=== PATIENT | male | born 1980 | race Caucasian/White ===

== ENCOUNTER 2019-12-15 22:24 | Emergency (ER) | payer OTHER, SELFPAY ==
--- NOTE | ~2019-12-15 | XR_ITS ---
EXAMINATION: XR chest 1V portable EXAM DATE: 12/15/2019 22:54 INDICATION: Dyspnea on exertion. TECHNIQUE: Portable AP frontal chest x-ray was obtained. Comparison is made to prior examination from 06/16/2017. FINDINGS: The lungs are clear. There are no pleural effusions. The cardiomediastinal silhouette is within normal limits. There is no pneumothorax suspected. There is moderate upper thoracic levoscol iosis. IMPRESSION: No acute cardiopulmonary findings. Reviewed, dictated and finalized at location G.
[2019-12-15 22:27] VITALS: BP 134/97; PULSE 96; RESP 20; TEMP 37.3; O2SAT 97
--- NOTE | 2019-12-15 22:28 | ED.GENADULT ---
HPI - General Adult General Chief complaint: Shortness of Breath/Dyspnea Stated complaint: breathing weird Time Seen by Provider: 12/15/19 22:26 Source: patient Mode of arrival: ambulatory Limitations: no limitations History of Present Illness HPI narrative: Patient is a 39-year-old male with a history of HIV, undetected viral load, who presents for evaluation of shortness of breath over the past two days. Patient reports feeling as if he cannot get a deep breath. He denies any chest pain or pleuritic pain. He reports dry cough. He denies fever, congestion, sore throat. No nausea or vomiting. No diarrhea. No leg swelling, leg pain, no rashes or redness. No history of blood clot. No recent travels or known exposures to coronavirus. Patient states he has been isolating at home aside from trips to the grocery store. Patient lives with his grandmother who is otherwise healthy. Patient does have a history of asthma, states this feels different than asthma exacerbations. Related Data Allergies Allergy/AdvReac Type Severity Reaction Status Date / Time banana Allergy Mild MOUTH SORES Verified 12/15/19 22:37 tomato Allergy Mild MOUTH SORES Verified 12/15/19 22:37 cat dander Allergy Unknown Itching Verified 12/15/19 22:37 ENVIRONMENTAL ALLERGENS AdvReac Unknown Itching Uncoded 12/15/19 22:37 Review of Systems Review of Systems: Narrative: CONSTITUTIONAL: Denies fever, chills, or sweats. EYES: Denies visual changes, redness, or discharge. ENT: Denies rhinorrhea, congestion, sore throat, or otalgia. CARDIOVASCULAR: Denies chest pain, palpitations, or edema. RESPIRATORY: Reports dry cough and dyspnea GASTROINTESTINAL: Denies abdominal pain, nausea, vomiting, or diarrhea. GENITOURINARY: Denies dysuria or hematuria. SKIN: Denies rash or itching. MUSCULOSKELETAL: Denies back pain, joint pain, or myalgia. NEUROLOGIC: Denies headache, numbness, or weakness. [facility] Past Medical History Medical History Anxiety Asthma Depression HIV (human immunodeficiency virus infection) Hyperlipidemia Leg fracture Surgical History Surgical History History of appendectomy History of tonsillectomy Social History Social History Smoking status: Never smoker Alcohol intake: current Exam Narrative: Exam Narrative: GENERAL: Awake, alert, conversant HEAD: Normocephalic, atraumatic. EYES: PERRLA and EOMI. ENT: Nares clear, no rhinorrhea or epistaxis. Mucous membranes moist. NECK: Supple. CHEST: No respiratory distress, breathing even and non labored, no use of accessory muscles, no difficulty speaking in full sentences HEART: Borderline tachycardic rate, sinus rhythm ABDOMEN:Non distended, non tender EXTREMITIES: Normal range of motion. No edema. No erythema. No calf tenderness. SKIN: Warm, dry, no rash. NEURO:No focal deficits. Alert and oriented x3 Course Course Emergency Course: Patient presented for evaluation of shortness of breath. At the time of initial assessment, ABCs are intact and vital signs are stable. No hypoxemia, no increased work of breathing. No audible wheezing to have this be consistent with an asthma exacerbation. Patient is PERC criteria negative, making PE unlikely diagnosis. Furthermore, patient without chest pain or pleuritic type pain, no PE risk factors. Laboratory results are reassuring. No lymphopenia, no elevation in inflammatory markers or elevation in troponin. Chest x-ray shows no pneumonia, there is nothing consistent with severe coronavirus infection at this point. Given immunocompromise status, will go ahead and send COVID-19 viral swab, and I did advise the patient that this would result tomorrow and he will be called if the results were positive. As patient is hemodynamically stable, no respiratory distress at the time of assessment, we can fabio
[2019-12-15 22:50] LABS: Basophils Absolute Auto 0.1 K/mm3 (0.0-0.1); Basophils Percent Auto 0.9 % (0.2-1.2); Eosinophils Absolute Auto 0.6 K/mm3 (0-0.3); Eosinophils Percent Auto 7.1 % (0-4.4); Hematocrit 41.8 % (42.0-52.0); Hemoglobin 14.4 g/dL (14.0-18.0); Immature Granulocyte Absolute 0.02 K/mm3 (0.00-0.031); Immature Granulocyte Percent A 0.3 % (0-0.5); Lymphocytes Absolute Auto 2.71 K/mm3 (0.9-3.2); Lymphocytes Percent Auto 34.5 % (18.3-44.2); Mean Corpuscular HGB Conc 34.4 g/dl (32-36); Mean Corpuscular Hemoglobin 32.8 pg (26-34); Mean Corpuscular Volume 95.2 fl (80-100); Mean Platelet Volume 12.9 fl (7.4-10.4); Monocytes Absolute Auto 0.9 K/mm3 (0.1-0.6); Monocytes Percent Auto 11.5 % (2.6-8.5); Neutrophils Absolute Auto 3.6 K/mm3 (1.3-6.7); Neutrophils Percent Auto 45.7 % (45.5-73.1); Platelet Count Result 150 k/mm3 (150-375); Red Blood Count 4.39 M/mm3 (4.6-6.20); Red Cell Distribution Width 12.9 % (11.5-14.5); White Blood Count 7.9 K/mm3 (4.5-10.0)
[2019-12-15 22:58] VITALS: PULSE 91
[2019-12-15 22:59] VITALS: BP 139/97; PULSE 86; RESP 13; O2SAT 97
[2019-12-15 22:59] LABS: INR 0.9; Prothrombin Time 12.1 Seconds (11.1-14.7)
--- NOTE | 2019-12-15 22:59 | PC.NURSE ---
Assumed care of pt at this time. report from EULALIO Fagan
[2019-12-15 23:00] LABS: Partial Thromboplastin Time 27.4 SECONDS (22.3-36.8)
--- NOTE | 2019-12-15 23:02 | ECG_ITS ---
Measurements Intervals [place] Rate: 104 P: 59 [place]: 172 QRS: 5 QRSD: 94 T: 33 QT: 319 QTc: 420 Interpretive Statements SINUS TACHYCARDIA EARLY PRECORDIAL R/S TRANSITION BASELINE WANDER- V4 ABNORMAL ECG Electronically Signed On 12-16-2019 7:09:54 CDT by Collin Mcgraw D.O.
[2019-12-15 23:07] LABS: Alanine Aminotransferase 57 U/L (4-50); Albumin Level 4.3 g/dL (3.5-5.1); Alkaline Phosphatase 98 U/L (38-126); Aspartate Amino Transferase 35 U/L (17-59); Bilirubin,Total 0.3 mg/dL (0.2-1.3); Blood Urea Nitrogen 11 mg/dL (9-20); Calcium 8.8 mg/dL (8.4-10.2); Carbon Dioxide 22 mmol/L (22-30); Chloride 108 mmol/L (98-107); Estimated CRCL calculation 115 ml/min; Estimated Glomerular Filt Rate > 60; Glucose 123 mg/dL (75-110); Lactate Dehydrogenase 427 U/L (313-618); Potassium 3.7 mmol/L (3.4-5.0); Sodium 139 mmol/L (137-145)
[2019-12-15 23:09] LABS: CRP < 0.5 mg/dL (<1.0)
[2019-12-15 23:15] LABS: NT Pro B Type Natriuretic Pept 22 PG/ML (5-100)
[2019-12-15 23:18] LABS: Troponin I < 0.012 ng/mL (0.000-0.034)
[2019-12-16 00:20] VITALS: BP 134/108; PULSE 91; RESP 12; O2SAT 99
[2019-12-16 13:28] LABS: SARS-CoV-2 RNA PCR Negative
== END 2019-12-16 00:20 | disposition home or self-care (01) ==
PROVIDERS: Emergency Provider Emergency Medicine; PCP Physician Assistant Medical
DX: R06.00 Dyspnea, unspecified (principal); J45.909 Unspecified asthma, uncomplicated; E78.5 Hyperlipidemia, unspecified; Z21 Asymptomatic human immunodeficiency virus [HIV] infection status; R00.0 Tachycardia, unspecified; Z20.828 Contact with and (suspected) exposure to other viral communicable diseases
CPT/HCPCS: 36415; 71045; 80053; 82728; 83615; 83880; 84484; 85025; 85610; 85730; 86140; 87635; 93005; 99284; C9803; U0003

== ENCOUNTER 2020-01-27 16:50 | Emergency (ER) | payer OTHER, SELFPAY ==
--- NOTE | ~2020-01-27 | CT_ITS ---
EXAMINATION: CT abdomen pelvis w con DATE: 01/27/2020 18:17 INDICATION: Abdominal pain TECHNIQUE: Computed tomography (CT) of the abdomen and pelvis was performed with 100 mL Omnipaque-350 intravenous contrast. Automated exposure control and iterative reconstruction technique were employe d. The dose-length product was 1502.37 mGy-cm. COMPARISON: 08/01/2019 FINDINGS: Lung bases are clear. Heart size is normal. No pericardial or pleural effusion. Diffuse hepatic steat osis. Gallbladder, spleen, pancreas, bilateral adrenal glands and kidneys are normal. Surgical clips at the tip of cecum likely related to prior appendectomy. Bowels are normal with no wall thickening o r obstruction. Tiny fat-containing umbilical hernia and 3 separate fat-containing paraumbilical herni as. There is prominent inflammatory stranding in the fat within the most cephalad hernia consistent w ith fat necrosis. There is also a small fat-containing indirect right inguinal hernia. Bladder is nor mal. No free intraperitoneal gas or fluid. No pathologically enlarged abdominal or pelvic lymphadenop athy. 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 Minimal lumbar dextr ocurvature. IMPRESSION: 1. Fat necrosis within the cephalad-most of 3 fat-containing paraumbilical hernias. 2. Diffuse hepatic steatosis. Reviewed, dictated and finalized at location A. IMPRESSION: 1. Fat necrosis within the cephalad-most of 3 fat-containing paraumbilical yogesh ias. 2. Diffuse hepatic steatosis.
[2020-01-27 16:56] VITALS: BP 142/113; PULSE 116; RESP 20; TEMP 36.7; O2SAT 98
[2020-01-27 17:32] LABS: Basophils Absolute Auto 0.1 K/mm3 (0.0-0.1); Eosinophils Absolute Auto 0.6 K/mm3 (0-0.3); Eosinophils Percent Auto 7.7 % (0-4.4); Hematocrit 42.6 % (42.0-52.0); Hemoglobin 14.6 g/dL (14.0-18.0); Immature Granulocyte Absolute 0.03 K/mm3 (0.00-0.031); Immature Granulocyte Percent A 0.4 % (0-0.5); Immature Platelet Fraction Pct 11.3 % (0.9-11.2); Lymphocytes Absolute Auto 2.61 K/mm3 (0.9-3.2); Lymphocytes Percent Auto 33.9 % (18.3-44.2); Mean Corpuscular HGB Conc 34.3 g/dl (32-36); Mean Corpuscular Hemoglobin 32.5 pg (26-34); Mean Corpuscular Volume 94.9 fl (80-100); Monocytes Absolute Auto 0.8 K/mm3 (0.1-0.6); Neutrophils Absolute Auto 3.6 K/mm3 (1.3-6.7); Platelet Count Result 154 k/mm3 (150-375); Red Blood Count 4.49 M/mm3 (4.6-6.20); Red Cell Distribution Width 12.8 % (11.5-14.5); White Blood Count 7.7 K/mm3 (4.5-10.0)
[2020-01-27] MEDS: KETOROLAC 30 MG/ML VIAL (*BKC) IV PUSH (17:40)
[2020-01-27 17:44] LABS: Alanine Aminotransferase 88 U/L (4-50); Albumin Level 4.4 g/dL (3.5-5.1); Alkaline Phosphatase 88 U/L (38-126); Aspartate Amino Transferase 57 U/L (17-59); Bilirubin,Total 0.4 mg/dL (0.2-1.3); Blood Urea Nitrogen 13 mg/dL (9-20); Calcium 9.4 mg/dL (8.4-10.2); Carbon Dioxide 21 mmol/L (22-30); Chloride 108 mmol/L (98-107); Estimated CRCL calculation 96 ml/min; Estimated Glomerular Filt Rate > 60; Glucose 96 mg/dL (75-110); Potassium 4.3 mmol/L (3.4-5.0); Sodium 138 mmol/L (137-145)
--- NOTE | 2020-01-27 17:45 | PC.NURSE ---
Pt attempted to urinate. Pt unable to urinate at this time.
--- NOTE | 2020-01-27 17:47 | ED.GENADULT ---
HPI - General Adult General Chief complaint: Abdominal Pain Stated complaint: Abd Pain Time Seen by Provider: 01/27/20 16:56 History of Present Illness HPI narrative: Patient is a 39 y/o male complaining of right sided abdominal pain starting approximately 1 hour ago when he was at a gym doing crunches. He states that the pain is intermittent, like sharp and pulling sensation. He states that his pain is worse with movement and he rates his pain as 8/10. He denies any fever, chills, vomiting or diarrhea. Of note, he had appendectomy several years ago. Related Data Home Medications Medication Instructions Recorded Confirmed gbxqetzmi-nxqwioom-npjrrox ala 1 tablet PO DAILY 01/27/20 [Biktarvy] Allergies Allergy/AdvReac Type Severity Reaction Status Date / Time banana Allergy Mild MOUTH SORES Verified 01/27/20 17:02 tomato Allergy Mild MOUTH SORES Verified 01/27/20 17:02 cat dander Allergy Unknown Itching Verified 01/27/20 17:02 ENVIRONMENTAL ALLERGENS AdvReac Unknown Itching Uncoded 01/27/20 17:03 Review of Systems Constitutional: Constitutional: Denies chills, Denies fever(s), Denies headache(s) and Denies weakness Eyes: Eyes: Denies blurry vision ENT: Denies headache(s) and Denies neck pain Cardiovascular: Cardiovascular: Denies chest pain and Denies dyspnea Respiratory: Respiratory: Denies cough and Denies dyspnea Gastrointestinal: Gastrointestinal: Reports abdominal pain, Denies diarrhea, Denies nausea and Denies vomiting Genitourinary: Genitourinary: Denies hematuria and Denies dysuria Musculoskeletal: Musculoskeletal: Denies back pain and Denies neck pain Neurologic: Denies headache(s) and Denies weakness [facility] Past Medical History Medical History Anxiety Asthma Depression HIV (human immunodeficiency virus infection) Hyperlipidemia Leg fracture Surgical History Surgical History History of appendectomy History of tonsillectomy Social History Social History Smoking status: Never smoker Alcohol intake: current Gender identity (if verbalized by the patient): Male Exam Const: General: no acute distress and well developed Orientation/consciousness: oriented to person, oriented to place, oriented to time and patient oriented x3 HENMT: Head: normocephalic Ears: external ears normal General nose exam: Normal external nose present Eyes: General: appearance normal, both eyes and all related structures Conjunctivae: conjunctivae normal Neck: Neck: normal visual inspection and full ROM Chest: Chest palpation & inspection: normal inspection of the chest and no tenderness Resp: Effort & Inspection: normal respiratory effort Auscultation: clear to auscultation bilaterally Cardio: Rate: tachycardic Rhythm: regular rhythm GI: GI Palp: No abdominal tenderness and Yes Soft to palpation Skin: General skin exam: normal color and turgor normal Neuro: General: oriented to person, oriented to place, oriented to time and patient oriented x3 Cognition (Neuro): normal cognition Extrem: General: normal to inspection, full ROM and no pedal edema Psych: Appearance: grossly normal Mental Status: mental status grossly normal Affect: normal affect Course Reevaluation(s) Reevaluation #1: Patient states that he still has pain does not want to go home. Will consult surgery again. Date: 01/27/20 Time: 19:40 Reevaluation #2: Relayed Dr. Schwab's recommendation and instructed patient to call in the morning and return to ED if his conditions worsens. Date: 01/27/20 Time: 20:10 Consultations Consultation #1: Discussed with Dr. Schwab, who recommends discharge with analgesics and he will follow up tomorrow. Date: 01/27/20 Time: 19:05 Consultation #2: Discussed with Dr. Schwab, who still recommends discharge and states that patient's condition does not requi
[2020-01-27 18:41] VITALS: BP 114/99; PULSE 89; RESP 19; O2SAT 99
[2020-01-27 18:51] LABS: Add Urine Microscopic? YES; Appearance Urine Clear (Clear); Bilirubin Urine Negative (Negative); Blood Urine Negative (Negative); Color Urine Yellow (Yellow); Glucose Urine UA Negative (Negative); Ketones Urine Negative (Negative); Leukocyte Esterase Ur Negative LEU/UL (Negative); Mucus Urine Rare /lpf; Nitrate Urine Negative (Negative); Protein Urine 1+ mg/dL (Negative); RBC Urine 0-2 /hpf (0-2); Specific Grav Ur 1.023 (1.001-1.035); Urobilinogen Urine Negative mg/dL (<2.0); WBC Urine 0-3 /hpf
[2020-01-27] MEDS: MORPHINE SULFATE 4 MG/ML INJ IV PUSH (19:10)
[2020-01-27] MEDS: MORPHINE SULFATE 4 MG/ML INJ IM (20:20)
[2020-01-27 20:30] VITALS: BP 121/98; PULSE 80; RESP 16; O2SAT 100
== END 2020-01-27 20:30 | disposition home or self-care (01) ==
PROVIDERS: Emergency Provider Emergency Medicine; PCP Physician Assistant Medical
DX: K43.2 Incisional hernia without obstruction or gangrene (principal); K46.9 Unspecified abdominal hernia without obstruction or gangrene; J45.909 Unspecified asthma, uncomplicated; Z21 Asymptomatic human immunodeficiency virus [HIV] infection status; E78.5 Hyperlipidemia, unspecified; K76.0 Fatty (change of) liver, not elsewhere classified
CPT/HCPCS: 36415; 74177; 80053; 81001; 85025; 85055; 96374; 96375; 96376; 99284; J1885; J2270; Q9967

== ENCOUNTER 2020-01-29 05:02 | Day surgery (SDC) | payer OTHER, SELFPAY ==
[2020-01-28 11:13] VITALS: BMI 39.1
[2020-01-29] VITALS (7 sets, daily range): BP systolic 105–130; BP diastolic 69–88; PULSE 80–106; RESP 14–18; TEMP 36.4–36.5; O2SAT 95–100
[2020-01-29] MEDS: LACTATED RINGERS 1,000 ML 30 ML IV CONT ×2 (08:33→11:48)
--- NOTE | 2020-01-29 09:06 | WPDHPUPDATE1 ---
History and Physical Update Update Date/Time: 01/29/20 09:06 History and Physical has been reviewed, including an updated exam of the patient. There are NO changes in the patient's condition. Risks, benefits, and alternatives have been discussed and questions answered. Patient agrees to proceed with procedure.
--- NOTE | 2020-01-29 09:08 | P.PNAN_ITS ---
Anes - Initial Pre Proc Eval Procedure: Operation Date: 01/29/20 10:00 Proposed Procedures p Repair Incarcerated Incisional Hernia With Mesh - Paresh Schwab MD Date/Time: 01/29/20 09:08 Surgeon: Paresh Schwab MD Pre Op Diagnosis: Incarcerated Incisional Hernia Patient Data Age: 39 Gender: M Height: 5 ft 9 in Weight: 120.2 kg Last Vital Signs Temp 36.4 C L 01/29/20 08:05 Pulse 94 01/29/20 08:05 Resp 16 01/29/20 08:05 BP 105/69 01/29/20 08:05 Pulse Ox 96 01/29/20 08:05 Allergies Allergy/AdvReac Type Severity Reaction Status Date / Time banana Allergy Mild MOUTH SORES Verified 01/28/20 11:14 tomato Allergy Mild MOUTH SORES Verified 01/28/20 11:14 cat dander Allergy Unknown Itching Verified 01/28/20 11:14 ENVIRONMENTAL ALLERGENS AdvReac Unknown Itching Uncoded 01/28/20 11:14 Home Medications Medication Instructions Recorded Confirmed Type albuterol sulfate 1 inh INHALATION Q4-6H PRN #1 each 12/16/19 01/28/20 Rx tipmmpcvk-ljtolczo-ztohsup ala 1 tablet PO DAILY 01/27/20 01/28/20 History [Biktarvy] hydrocodone-acetaminophen [[place]] 1 tablet PO Q6H PRN #20 tablet 01/27/20 01/28/20 Rx Patient hx anesthesia problems: none Family hx anesthesia problems: none PMFSH Past Medical History Medical History Anxiety Asthma Depression HIV (human immunodeficiency virus infection) Hyperlipidemia Leg fracture Surgical History Surgical History History of appendectomy History of tonsillectomy Social History Social History Smoking status: Never smoker Alcohol intake: current Gender identity (if verbalized by the patient): Male Anes - Eval Final PreProcedure Day of Procedure 01/29/20 09:08 Patient weight: morbidly obese Heart: regular rate and rhythm Lungs: clear to auscultation Airway: Mallampati scale class II Neurological: alert and oriented Last oral intake: >/= 8 hours ASA classification: III Emergent: no Anesthetic plan: proceed Anesthesia type and monitoring: general LMA and standard monitoring Informed Consent: The patient's anesthetic plan and its attendant risks and benefits were discussed with the patient/family/POA. Questions were solicited and answers provided to the satisfaction of the patient/family/POA.
[2020-01-29] MEDS: ceFAZolin 2 GM/D5W 50 ML 2 GM/50 ML BAG IVPB (10:15)
--- NOTE | 2020-01-29 11:46 | PM.PROC ---
Procedure Note - Detailed Date of procedure: 01/29/20 Pre-op diagnosis: Incarcerated Incisional Hernia Incarcerated incisional hernia Post-op diagnosis: same Procedure performed: Repair incarcerated incisional hernia with 8.6 cm Parietex underlay mesh Description of procedure: The patient was taken to surgery and induced into general anesthesia with LMA. The abdomen was prepped and draped. The proposed midline incision was marked on the skin. Local anesthesia was infiltrated into the anticipated incision. Incision was then made and dissection through the subcutaneous was carried out. The incarcerated hernia was easily found. We dissected around this. At least 3 other non incarcerated ventral/incisional hernias were found as we dissected down to the fascia. The hernia sacs were opened. In the incarcerated hernia there was some fat necrosis of omentum. This was excised and discarded. The umbilical skin was dissected off the fascia. I then undermined the subcutaneous all around the multiple hernia defects. The herniated contents were reduced or excised and discarded. The hernia defects were combined into 1 defect by dividing the fascial bridges between each of the defects. Eventually 2-3 cm of fascia was visible all around the central incisional hernia. I placed a finger in the abdomen and found no other hernias nor any adhesions to the anterior abdominal wall in this area. The defect was approximately 3 x 1.5 cm. An 8.6 cm Parietex [place] was chosen. It was placed in the defect and centered symmetrically. Cranial and caudal transfascial sutures of 0 Ethibond were then placed. These were placed in such a fashion as to advance the edges of the hernia defect towards 1 another. I tied down the sutures. I then placed right and left lateral transfascial sutures of 0 Ethibond to secure the lateral aspect of the mesh to the anterior abdominal wall. Finally I closed the defect with [id number] mattress sutures of 0 Ethibond. Each of these sutures incorporated a bit of mesh as well. Once closed, the defect was fully covered and appeared to be well repaired. I placed additional local all around the repair for postoperative anesthetic affect. I then debrided remnants of the hernia sac from the umbilical skin. Three 0 Vicryl suture were used to suture the umbilical skin to the fascia. The deep subcutaneous was closed with interrupted 3 0 Vicryl suture. More superficial subcutaneous was closed with interrupted 3 0 Vicryl suture. The skin was loosely approximated with subcuticular interrupted 4 O Vicryl suture. Finally the skin was closed with running 4 0 Monocryl subcuticular suture. The wound was dressed with Exofin surgical adhesive. The patient was 0 awaken and taken to recovery in good condition. Sponge and needle counts were correct x2. Implants: 8.6 cm Parietex hernia mesh Anesthesia: GLMA and local (0.5% Marcaine mixed with Exparel) Surgeon: Paresh Schwab MD Sr Risk Management Consultant: Abraham EVANS Estimated blood loss (mL): 5 Drains: No Packing: No Pathology: none sent Complications: None Condition: stable Disposition: PACU Findings: Incarcerated incisional hernia from laparoscopic trocar, multiple periumbilical ventral hernias in the area. No bowel involvement.
== END 2020-01-29 13:33 | disposition home or self-care (01) ==
PROVIDERS: Visit Provider Surgery
PROC: 0WQF0ZZ Repair Abdominal Wall, Open Approach (ICD-10-PCS; CPT 49561; principal; 2020-01-29 10:00)
DX: K43.0 Incisional hernia with obstruction, without gangrene (principal); E78.5 Hyperlipidemia, unspecified; J45.909 Unspecified asthma, uncomplicated; F41.8 Other specified anxiety disorders; Z21 Asymptomatic human immunodeficiency virus [HIV] infection status; E66.01 Morbid (severe) obesity due to excess calories; Z68.39 Body mass index [BMI] 39.0-39.9, adult
CPT/HCPCS: 49561; 49568; C1781; C9290; J0690; J2250; J2704; J3010; J7120

== ENCOUNTER 2020-05-22 20:21 | Emergency (ER) | payer MEDICAID, SELFPAY ==
--- NOTE | ~2020-05-22 | XR_ITS ---
EXAMINATION: XR chest 1V portable DATE: 05/22/2020 21:38 INDICATION: Fever and chills. Nausea. TECHNIQUE: A single frontal view of the chest was obtained. COMPARISON: Chest single view 12/15/2019, CT abdomen and pelvis 01/27/2020 FINDINGS: The chest demonstrates clear lungs without pneumonia, pleural effusion, or pneumothorax. Th e heart size is normal. IMPRESSION: 1. No acute cardiopulmonary disease. Reviewed, dictated and finalized at location A.
[2020-05-22 20:34] VITALS: BP 141/74; PULSE 131; RESP 20; TEMP 38; O2SAT 96
--- NOTE | 2020-05-22 20:41 | ECG_ITS ---
Measurements Intervals [place] Rate: 116 P: [place]: 0 QRS: 25 QRSD: 92 T: 48 QT: 279 QTc: 389 Interpretive Statements SINUS TACHYCARDIA WITH SINUS ARRHYTHMIA EARLY PRECORDIAL R/S TRANSITION ABNORMAL ECG Electronically Signed On 05-23-2020 6:55:09 CDT by Collin Mcgraw D.O.
--- NOTE | 2020-05-22 20:42 | ED.GENADULT ---
HPI - General Adult General Chief complaint: Fever Stated complaint: fever and chills Time Seen by Provider: 05/22/20 20:35 Source: patient History of Present Illness HPI narrative: Patient is a 40 y/o male complaining of fever and body ache starting today. He states that he had temp of 101.5. He took OTC meds for fever, which helped. He has no cough, sore throat, vomiting, diarrhea or dysuria. Of note, he has HIV and he is compliant with his HIV meds and his viral load is non-detectable last time they checked. Related Data Home Medications Medication Instructions Recorded Confirmed Biktarvy 1 tablet PO DAILY 01/27/20 02/15/20 Allergies Allergy/AdvReac Type Severity Reaction Status Date / Time banana Allergy Mild MOUTH SORES Verified 05/22/20 20:53 tomato Allergy Mild MOUTH SORES Verified 05/22/20 20:53 cat dander Allergy Unknown Itching Verified 05/22/20 20:53 ENVIRONMENTAL ALLERGENS AdvReac Unknown Itching Uncoded 01/28/20 11:14 Review of Systems Constitutional: Constitutional: Reports chills, Reports fever(s), Denies headache(s) and Denies weakness Eyes: Eyes: Denies blurry vision ENT: Denies headache(s) and Denies neck pain Cardiovascular: Cardiovascular: Denies chest pain and Denies dyspnea Respiratory: Respiratory: Denies cough and Denies dyspnea Gastrointestinal: Gastrointestinal: Denies abdominal pain, Denies diarrhea, Denies nausea and Denies vomiting Genitourinary: Genitourinary: Denies hematuria and Denies dysuria Musculoskeletal: Musculoskeletal: Denies back pain, Reports myalgias and Denies neck pain Neurologic: Denies headache(s) and Denies weakness [facility] Past Medical History Medical History (Updated 05/22/20 @ 22:27 by Geni Keys MD) Anxiety Asthma Depression HIV (human immunodeficiency virus infection) Hyperlipidemia Leg fracture Surgical History Surgical History History of appendectomy History of tonsillectomy Social History Social History Smoking status: Never smoker Alcohol intake: current Gender identity (if verbalized by the patient): Male Exam Const: General: no acute distress and well developed Orientation/consciousness: oriented to person, oriented to place, oriented to time and patient oriented x3 HENMT: Head: normocephalic Ears: external ears normal General nose exam: Normal external nose present Eyes: General: appearance normal, both eyes and all related structures Conjunctivae: conjunctivae normal Neck: Neck: normal visual inspection and full ROM Chest: Chest palpation & inspection: normal inspection of the chest and no tenderness Resp: Effort & Inspection: normal respiratory effort Auscultation: clear to auscultation bilaterally Cardio: Rate: regular rate and tachycardic GI: GI Palp: No abdominal tenderness and Yes Soft to palpation Skin: General skin exam: normal color and turgor normal Neuro: General: oriented to person, oriented to place, oriented to time and patient oriented x3 Cognition (Neuro): normal cognition Extrem: General: normal to inspection, full ROM and no pedal edema Psych: Appearance: grossly normal Mental Status: mental status grossly normal Affect: normal affect Course Vital Signs Vital signs: Vital Signs Temperature 38.0 C H 05/22/20 20:34 Pulse Rate 131 H 05/22/20 20:34 Respiratory Rate 20 05/22/20 20:34 Blood Pressure 141/74 H 05/22/20 20:34 Pulse Oximetry 96 05/22/20 20:34 Temperature 37.9 C H 05/22/20 23:00 Pulse Rate 98 05/22/20 23:00 Respiratory Rate 17 05/22/20 23:00 Blood Pressure 128/70 05/22/20 23:00 Pulse Oximetry 99 05/22/20 23:00 Medical Decision Making Vital Signs Vital Signs: Vital Signs Temperature 38.0 C H 05/22/20 20:34 Pulse Rate 131 H 05/22/20 20:34 Respiratory Rate 20 05/22/20 20:34 Blood Pressure 141/74 H 05/22/20 20:34 Pulse Oxim
[2020-05-22 20:57] LABS: Basophils Absolute Auto 0.1 K/mm3 (0.0-0.1); Basophils Percent Auto 0.9 % (0.2-1.2); Eosinophils Absolute Auto 0.4 K/mm3 (0-0.3); Eosinophils Percent Auto 5.5 % (0-4.4); Hematocrit 40.9 % (42.0-52.0); Hemoglobin 14.4 g/dL (14.0-18.0); Immature Granulocyte Absolute 0.02 K/mm3 (0.00-0.031); Immature Granulocyte Percent A 0.3 % (0-0.5); Lymphocytes Absolute Auto 0.88 K/mm3 (0.9-3.2); Lymphocytes Percent Auto 13.2 % (18.3-44.2); Mean Corpuscular HGB Conc 35.2 g/dl (32-36); Mean Corpuscular Hemoglobin 33.6 pg (26-34); Mean Corpuscular Volume 95.3 fl (80-100); Mean Platelet Volume 12.8 fl (7.4-10.4); Monocytes Percent Auto 14.7 % (2.6-8.5); Neutrophils Absolute Auto 4.4 K/mm3 (1.3-6.7); Neutrophils Percent Auto 65.4 % (45.5-73.1); Platelet Count Result 109 k/mm3 (150-375); Red Blood Count 4.29 M/mm3 (4.6-6.20); Red Cell Distribution Width 13.1 % (11.5-14.5); White Blood Count 6.7 K/mm3 (4.5-10.0)
[2020-05-22 21:09] LABS: Alanine Aminotransferase 110 U/L (4-50); Albumin Level 4.2 g/dL (3.5-5.1); Alkaline Phosphatase 84 U/L (38-126); Anion Gap 11 mmol/L (8-16); Aspartate Amino Transferase 78 U/L (17-59); Bilirubin,Total 0.4 mg/dL (0.2-1.3); Blood Urea Nitrogen 15 mg/dL (9-20); Calcium 9.2 mg/dL (8.4-10.2); Carbon Dioxide 22 mmol/L (22-30); Chloride 106 mmol/L (98-107); Estimated Glomerular Filt Rate > 60; Glucose 123 mg/dL (75-110); Potassium 3.9 mmol/L (3.4-5.0); Sodium 139 mmol/L (137-145)
[2020-05-22 21:35] LABS: Add Urine Microscopic? YES; Appearance Urine Clear (Clear); Bacteria Urine Trace /hpf; Bilirubin Urine Negative (Negative); Blood Urine Negative (Negative); Color Urine Yellow (Yellow); Glucose Urine UA Negative (Negative); Ketones Urine Negative (Negative); Leukocyte Esterase Ur Negative LEU/UL (Negative); Mucus Urine Rare /lpf; Nitrate Urine Negative (Negative); Protein Urine Negative (Negative); RBC Urine 0-2 /hpf (0-2); Specific Grav Ur 1.028 (1.001-1.035); Urobilinogen Urine Negative mg/dL (<2.0)
[2020-05-22 22:10] VITALS: BP 134/80; PULSE 112; RESP 21; O2SAT 97
[2020-05-22] MEDS: ACETAMINOPHEN 325 MG TABLET 650 MG PO (22:16)
[2020-05-22 22:40] VITALS: TEMP 37.9
[2020-05-22 23:00] VITALS: BP 128/70; PULSE 98; RESP 17; TEMP 37.9; O2SAT 99
[2020-05-23 14:08] LABS: SARS-CoV-2 RNA PCR Positive
== END 2020-05-22 22:45 | disposition home or self-care (01) ==
PROVIDERS: Emergency Provider Emergency Medicine
DX: U07.1 COVID-19 (principal); R50.9 Fever, unspecified; R94.5 Abnormal results of liver function studies; Z21 Asymptomatic human immunodeficiency virus [HIV] infection status; J45.909 Unspecified asthma, uncomplicated; E78.5 Hyperlipidemia, unspecified; R00.0 Tachycardia, unspecified
CPT/HCPCS: 36415; 71045; 80053; 81001; 85025; 87040; 87635; 93005; 99283; A9270; C9803; U0003

== ENCOUNTER 2020-05-26 16:27 | Emergency (ER) | payer OTHER, SELFPAY ==
--- NOTE | ~2020-05-26 | XR_ITS ---
EXAMINATION: XR chest 1V portable EXAM DATE: 05/26/2020 17:35 INDICATION: Shortness of breath and fever. TECHNIQUE: Portable AP frontal chest x-ray was obtained. Comparison is made to prior examination from 05/22/2020. FINDINGS: Ill-defined region of slightly increased density suspected over the right lower lung zone, possible developing acute airspace disease. This was not evident 4 days ago. The lungs are otherwise clear. There are no pleural effusions. The cardiomediastinal silhouette is within normal limits. There is no pneumothorax suspected. The bones and soft tissues are unremarkab le. IMPRESSION: Possible developing right lower lobe acute infectious process. Reviewed, dictated and finalized at location A.
--- NOTE | 2020-05-26 16:31 | ECG_ITS ---
Measurements Intervals [place] Rate: 102 P: 7 [place]: 141 QRS: 14 QRSD: 97 T: 23 QT: 332 QTc: 434 Interpretive Statements SINUS TACHYCARDIA FREQUENT ATRIAL PREMATURE COMPLEXES INCOMPLETE RIGHT BUNDLE BRANCH BLOCK ABNORMAL ECG Electronically Signed On 05-26-2020 19:30:40 CDT by Collin Mcgraw D.O.
[2020-05-26 16:36] VITALS: BP 121/79; PULSE 107; RESP 18; TEMP 36.6; O2SAT 98
[2020-05-26 17:34] VITALS: PULSE 77
[2020-05-26 17:35] LABS: Basophils Percent Auto 0.8 % (0.2-1.2); Eosinophils Absolute Auto 0.1 K/mm3 (0-0.3); Eosinophils Percent Auto 2.3 % (0-4.4); Hematocrit 44.7 % (42.0-52.0); Hemoglobin 15.7 g/dL (14.0-18.0); Immature Granulocyte Absolute 0.01 K/mm3 (0.00-0.031); Immature Granulocyte Percent A 0.2 % (0-0.5); Lymphocytes Absolute Auto 1.39 K/mm3 (0.9-3.2); Lymphocytes Percent Auto 26.9 % (18.3-44.2); Mean Corpuscular HGB Conc 35.1 g/dl (32-36); Mean Corpuscular Hemoglobin 33.8 pg (26-34); Mean Corpuscular Volume 96.3 fl (80-100); Mean Platelet Volume 12.8 fl (7.4-10.4); Monocytes Absolute Auto 0.7 K/mm3 (0.1-0.6); Monocytes Percent Auto 14.3 % (2.6-8.5); Neutrophils Absolute Auto 2.9 K/mm3 (1.3-6.7); Neutrophils Percent Auto 55.5 % (45.5-73.1); Platelet Count Result 122 k/mm3 (150-375); Red Blood Count 4.64 M/mm3 (4.6-6.20); Red Cell Distribution Width 13.1 % (11.5-14.5); White Blood Count 5.2 K/mm3 (4.5-10.0)
[2020-05-26 17:46] LABS: Anion Gap 12 mmol/L (8-16); Blood Urea Nitrogen 15 mg/dL (9-20); Calcium 8.6 mg/dL (8.4-10.2); Carbon Dioxide 25 mmol/L (22-30); Chloride 102 mmol/L (98-107); Estimated CRCL calculation 94 ml/min; Estimated Glomerular Filt Rate > 60; Glucose 86 mg/dL (75-110); Potassium 3.9 mmol/L (3.4-5.0); Sodium 139 mmol/L (137-145)
--- NOTE | 2020-05-26 18:25 | ED.GENADULT ---
HPI - General Adult General Chief complaint: Shortness of Breath/Dyspnea Stated complaint: fever, SOB Time Seen by Provider: 05/26/20 17:17 Source: patient Mode of arrival: ambulatory Limitations: no limitations History of Present Illness HPI narrative: Patient is a 40-year-old male who presents with positive Covid diagnosed in the last 2 days patient notes that he has had cough headache body aches fever that have fluctuated. Was seen 2 days ago in the emergency department when he was diagnosed with Covid. Patient denies vomiting or diarrhea. Patient notes undetectable HIV and is managed by infectious disease presents in no distress and on arrival resting comfortably in the room does not appear to be in any distress Related Data Home Medications Medication Instructions Recorded Confirmed Biktarvy 1 tablet PO DAILY 01/27/20 05/26/20 Allergies Allergy/AdvReac Type Severity Reaction Status Date / Time banana Allergy Mild MOUTH SORES Verified 05/26/20 16:41 tomato Allergy Mild MOUTH SORES Verified 05/26/20 16:41 cat dander Allergy Unknown Itching Verified 05/26/20 16:41 ENVIRONMENTAL ALLERGENS AdvReac Unknown Itching Uncoded 05/26/20 16:41 Review of Systems Review of Systems: All systems reviewed & are unremarkable except as noted in HPI and below PMFSH Past Medical History Medical History (Updated 05/26/20 @ 18:28 by Gareth Eugene PA-C) Anxiety Asthma Depression HIV (human immunodeficiency virus infection) Hyperlipidemia Leg fracture Surgical History Surgical History History of appendectomy History of tonsillectomy Social History Social History Smoking status: Never smoker Alcohol intake: current Gender identity (if verbalized by the patient): Male Exam Narrative: Exam Narrative: GENERAL: Well-appearing, well-nourished, and in no acute distress. HEAD: Normocephalic, atraumatic. EYES: PERRLA and EOMI. ENT: Nares clear, no rhinorrhea or epistaxis. Mucous membranes moist. CHEST: Clear to auscultation. No respiratory distress. No wheezes rales or rhonchi HEART: Regular rate and rhythm. No murmur heard. Normal peripheral pulses. ABDOMEN: Soft, nontender, nondistended EXTREMITIES: Normal range of motion. No edema. SKIN: Warm, dry, no rash. NEURO: No focal deficits. Alert and oriented x3. PSYCH: Normal mood and affect. Course Course Emergency Course: Patient with Covid 19 confirmed in the room no distress no hypoxemia possible developing pneumonia felt appropriate for outpatient reevaluation Vital Signs Vital signs: Vital Signs Temperature 97.8 F 05/26/20 16:36 Pulse Rate 107 H 05/26/20 16:36 Respiratory Rate 18 05/26/20 16:36 Blood Pressure 121/79 05/26/20 16:36 Pulse Oximetry 98 05/26/20 16:36 Temperature 97.8 F 05/26/20 16:36 Pulse Rate 77 05/26/20 17:34 Respiratory Rate 18 05/26/20 16:36 Blood Pressure 121/79 05/26/20 16:36 Pulse Oximetry 98 05/26/20 16:36 Medical Decision Making MDM Narrative Medical decision making narrative: Patient in the room in no distress will be sent home to manage symptomatically with follow-up with primary care patient is nontoxic-appearing afebrile no emesis no hypoxemia Vital Signs Vital Signs: Vital Signs Temperature 97.8 F 05/26/20 16:36 Pulse Rate 107 H 05/26/20 16:36 Respiratory Rate 18 05/26/20 16:36 Blood Pressure 121/79 05/26/20 16:36 Pulse Oximetry 98 05/26/20 16:36 Temperature 97.8 F 05/26/20 16:36 Pulse Rate 77 05/26/20 17:34 Respiratory Rate 18 05/26/20 16:36 Blood Pressure 121/79 05/26/20 16:36 Pulse Oximetry 98 05/26/20 16:36 Lab Data Result diagrams: 05/26/20 17:27 05/26/20 17:27 Labs: Lab Results 05/26/20 05/26/20 Range/Units 17:27 17:27 WBC 5.2 (4.5-10.0) K/mm3 RBC 4.64 (4.6-6.20) M/mm3 Hgb 15.7
[2020-05-26 19:07] VITALS: BP 142/89; PULSE 88; RESP 17; O2SAT 98
== END 2020-05-26 19:08 | disposition home or self-care (01) ==
PROVIDERS: Emergency Provider Emergency Medicine
DX: U07.1 COVID-19 (principal); Z21 Asymptomatic human immunodeficiency virus [HIV] infection status; J45.909 Unspecified asthma, uncomplicated; E78.5 Hyperlipidemia, unspecified; I49.1 Atrial premature depolarization; R00.0 Tachycardia, unspecified; I45.10 Unspecified right bundle-branch block
CPT/HCPCS: 36415; 71045; 80048; 85025; 93005; 99284

== ENCOUNTER 2020-08-03 07:08 | Outpatient (CLI) | payer OTHER, SELFPAY ==
--- NOTE | ~2020-08-03 | XR_ITS ---
EXAMINATION:XR cervical spine 4-5V DATE: 08/03/2020 08:43 INDICATION: Neck pain TECHNIQUE: AP, lateral in neutral, flexion, extension, lateral swimmers and odontoid views of the cer vical spine are provided. COMPARISON: None FINDINGS: Alignment is normal. There is no laxity with flexion or extension. The odontoid is intact. No fracture is identified. Vertebral body heights and disk spaces are normal. Prevertebral soft tissu es are normal. IMPRESSION: 1. Unremarkable cervical spine. Reviewed, dictated and finalized at location A. ICAL APPLICATIONS MANAGER
--- NOTE | ~2020-08-03 | XR_ITS ---
EXAMINATION: XR lumbar spine 2-3V DATE: 08/03/2020 08:43 INDICATION: Low back pain TECHNIQUE: Anteroposterior and lateral views of the lumbar spine, and cone-down lateral view of the l umbosacral junction were obtained. COMPARISON: None. FINDINGS: There is no fracture, dislocation, or subluxation. The vertebral body heights, alignment, a nd intervertebral disc spaces are normal. The paravertebral soft tissues are unremarkable. IMPRESSION: 1. Normal lumbar spine. Reviewed, dictated and finalized at location A. TED CIRCUIT BOARDS LAMINATOR IMPRESSION: 1. Normal lumbar spine.
--- NOTE | ~2020-08-03 | XR_ITS ---
EXAMINATION: XR thoracic spine 2V DATE: 08/03/2020 08:43 INDICATION: Bilateral shoulder and back pain TECHNIQUE: AP, lateral and lateral swimmer's views of the thoracic spine were obtained. COMPARISON: None. FINDINGS: There are 37 degrees of levoscoliosis of the upper thoracic spine and 19 degrees of dextros coliosis of the mid and lower thoracic spine. No fracture is identified. Bone alignment is normal. Th ere is no fracture. The vertebral body heights and intervertebral disc spaces are maintained. IMPRESSION: 1. Scoliosis of the thoracic spine without acute osseous abnormality. Reviewed, dictated and finalized at location A. ASOUND MANAGER
== END 2020-08-03 07:09 ==
PROVIDERS: Visit Provider Chiropractor
DX: M41.9 Scoliosis, unspecified (principal)
CPT/HCPCS: 72050; 72070; 72100

== ENCOUNTER 2021-01-22 20:45 | Emergency (ER) | payer SELFPAY ==
[2021-01-22 20:46] VITALS: BP 136/82; PULSE 82; RESP 17; TEMP 37; O2SAT 98
--- NOTE | 2021-01-22 21:04 | PC.NURSE ---
SLOAN presented to bedside. Pt states he stayed the night at a friends house and woke at 4am itching. Pt noted with several bite casas to arms and legs. These bite casas are consistent with bed bug bites. Pt states areas itch excessively. Pt denies pain at this time and denies nausea, emesis and sick contacts. Pt is alert and oriented and in no obvious distress. Pt advised to press call button for assistance.
--- NOTE | 2021-01-22 21:05 | ED.GENADULT ---
HPI - General Adult General Chief complaint: Allergic Reaction Stated complaint: allergic reaction Time Seen by Provider: 01/22/21 20:56 Source: patient, family and RN notes reviewed Mode of arrival: ambulatory Limitations: no limitations History of Present Illness HPI narrative: Patient a 40-year-old male who woke today at a friend's house with bug bites to the upper extremities with hive-like presentation some of which are in a pattern did not have them prior to stay at the friend's house has been applying cortisone cream just notes itching is the primary complaint denies any other complaints at this time presents in no distress Related Data Home Medications Medication Instructions Recorded Confirmed Biktarvy 1 tablet PO DAILY 01/27/20 05/26/20 Allergies Allergy/AdvReac Type Severity Reaction Status Date / Time banana Allergy Mild MOUTH SORES Verified 01/22/21 20:45 tomato Allergy Mild MOUTH SORES Verified 01/22/21 20:45 cat dander Allergy Unknown Itching Verified 01/22/21 20:45 ENVIRONMENTAL ALLERGENS AdvReac Unknown Itching Uncoded 05/26/20 16:41 Review of Systems Review of Systems: All systems reviewed & are unremarkable except as noted in HPI and below PMFSH Past Medical History Medical History (Updated 01/22/21 @ 21:10 by Gareth Eugene PA-C) Anxiety Asthma Depression HIV (human immunodeficiency virus infection) Hyperlipidemia Leg fracture Surgical History Surgical History History of appendectomy History of tonsillectomy Social History Social History Smoking status: Never smoker Alcohol intake: current Gender identity (if verbalized by the patient): Female Exam Narrative: Exam Narrative: GENERAL: Well-appearing, well-nourished, and in no acute distress. HEAD: Normocephalic, atraumatic. EYES: PERRLA and EOMI. ENT: Nares clear, no rhinorrhea or epistaxis. Mucous membranes moist. CHEST: Clear to auscultation. No respiratory distress. No wheezes rales or rhonchi HEART: Regular rate and rhythm. No murmur heard. N EXTREMITIES: Normal range of motion. No edema. SKIN: Warm, dry, patient with urticaria and patterns consistent with bug bites likely secondary to bedbug NEURO: No focal deficits. Alert and oriented x3. PSYCH: Normal mood and affect. Course Course Emergency Course: Patient in the room in no distress aware of case findings treatment plan and diagnosis Vital Signs Vital signs: Vital Signs Temperature 98.6 F 01/22/21 20:46 Pulse Rate 82 01/22/21 20:46 Respiratory Rate 17 01/22/21 20:46 Blood Pressure 136/82 01/22/21 20:46 Pulse Oximetry 98 01/22/21 20:46 Temperature 98.6 F 01/22/21 20:46 Pulse Rate 82 01/22/21 20:46 Respiratory Rate 17 01/22/21 20:46 Blood Pressure 136/82 01/22/21 20:46 Pulse Oximetry 98 01/22/21 20:46 Medical Decision Making MDM Narrative Medical decision making narrative: Patient in the room in no distress aware of case findings treatment plan and diagnosis Vital Signs Vital Signs: Vital Signs Temperature 98.6 F 01/22/21 20:46 Pulse Rate 82 01/22/21 20:46 Respiratory Rate 17 01/22/21 20:46 Blood Pressure 136/82 01/22/21 20:46 Pulse Oximetry 98 01/22/21 20:46 Temperature 98.6 F 01/22/21 20:46 Pulse Rate 82 01/22/21 20:46 Respiratory Rate 17 01/22/21 20:46 Blood Pressure 136/82 01/22/21 20:46 Pulse Oximetry 98 01/22/21 20:46 Discharge Plan Discharge Clinical Impression: Urticaria Patient Disposition: Home, Self-Care Condition: Stable Instructions: Antibiotic Form, Insect Bite or Sting (ED) Additional Instructions: Follow up with primary care in the next 7 days for reevaluation return if symptoms worsen or concerns, any increase in redness swelling pain or fever over 100.5 Cool compresses for symptom relief Clean wound with mild soapy water. C
--- NOTE | 2021-01-22 21:07 | PC.NURSE ---
Pt adds that he has been treating bites with hydrocotisone cream, alcohol and peroxide with no relief. Call button and personal items within reach. Pt advised to press call button for assistance.
== END 2021-01-22 21:23 | disposition home or self-care (01) ==
PROVIDERS: Emergency Provider Emergency Medicine
DX: L50.9 Urticaria, unspecified (principal); J45.909 Unspecified asthma, uncomplicated; E78.5 Hyperlipidemia, unspecified; Z21 Asymptomatic human immunodeficiency virus [HIV] infection status
CPT/HCPCS: 99283

== ENCOUNTER 2021-02-20 16:58 | Emergency (ER) | payer SELFPAY ==
[2021-02-20 17:03] VITALS: BP 132/92; PULSE 68; RESP 16; TEMP 37; O2SAT 100
--- NOTE | 2021-02-20 17:03 | ED.SKABFB ---
HPI - Skin/Abscess/Foreign Bdy General Chief complaint: Skin/Abscess/Foreign Body Stated complaint: Hives Time Seen by Provider: 02/20/21 17:03 Source: patient and RN notes reviewed History of Present Illness HPI narrative: Patient is a 40-year-old male who presents the urgent care with complaints of itchy red hives to the entire body. Patient states that he believes he may be allergic to something that he ate yesterday or possibly the fireball he drank an excessive amounts. Patient denies of any shortness of breath, chest pain, difficulty breathing. Patient states that he has been putting calamine lotion on to the areas as well as taking Benadryl. No other acute complaints. No acute distress noted. Patient aware of the plan of care. Some parts of this dictation were generated by voice recognition software and may contain typographical and/or grammatical inaccuracies. Related Data Home Medications Medication Instructions Recorded Confirmed Biktarvy 1 tablet PO DAILY 01/27/20 05/26/20 phentermine 37.5 mg PO DAILY 02/20/21 02/20/21 Allergies Allergy/AdvReac Type Severity Reaction Status Date / Time banana Allergy Mild MOUTH SORES Verified 01/22/21 20:45 tomato Allergy Mild MOUTH SORES Verified 01/22/21 20:45 cat dander Allergy Unknown Itching Verified 01/22/21 20:45 ENVIRONMENTAL ALLERGENS AdvReac Unknown Itching Uncoded 05/26/20 16:41 Review of Systems Review of Systems: Narrative: CONSTITUTIONAL: Denies fever, chills, or sweats. EYES: Denies visual changes, redness, or discharge. ENT: Denies rhinorrhea, congestion, sore throat, or otalgia. CARDIOVASCULAR: Denies chest pain, palpitations, or edema. RESPIRATORY: Denies cough or dyspnea. GASTROINTESTINAL: Denies abdominal pain, nausea, vomiting, or diarrhea. GENITOURINARY: Denies dysuria or hematuria. SKIN: Reports of itchy red hives to the entire body MUSCULOSKELETAL: Denies back pain, joint pain, or myalgia. NEUROLOGIC: Denies headache, numbness, or weakness. All other systems reviewed are negative, except as documented in HPI. [facility] Past Medical History Medical History (Updated 02/20/21 @ 17:13 by YULI Gusman) Anxiety Asthma Depression HIV (human immunodeficiency virus infection) Hyperlipidemia Leg fracture Surgical History Surgical History History of appendectomy History of tonsillectomy Social History Social History Smoking status: Never smoker Alcohol intake: current Gender identity (if verbalized by the patient): Female Comments At the time of my signature, I reviewed and agree with the nursing past medical, surgical, social, and family history. There is no relevant family history pertinent to the patient complaint. Exam Narrative: Exam Narrative: GENERAL: This is a well-nourished, well-developed patient, in no apparent distress. HEAD: normocephalic, atraumatic. EYES: PERRL. Sclera clear/white. Vision is grossly intact. EARS: External ears normal NOSE: External nose normal with no obvious nasal discharge, nares without redness, no rhinorrhea. THROAT: Mucous membranes moist, posterior pharynx clear. NECK: Neck supple CARDIOVASCULAR: Regular rate and rhythm without murmurs, gallops, or rubs. RESPIRATORY: Clear to auscultation. Breath sounds equal bilaterally. No wheezes, rales, or rhonchi. SKIN: Scattered raised erythemic urticaria diffuse throughout the body more noticeable to the bilateral upper extremities NEURO: awake, alert, and oriented to person, place and time. There were no obvious focal neurologic abnormalities. EXTREMITIES: No clubbing, cyanosis, or edema. Course Vital Signs Vital signs: Vital Signs Temperature 98.6 F 02/20/21 17:03 Pulse Rate 68 02/20/21 17:03 Respiratory Rate 16 02/20/21 17:03 Blood Pressure 132/92 H 02/20/21 17:03 Pulse Oximetry 100 02/20/21 17:03 Temperature
== END 2021-02-20 17:21 | disposition home or self-care (01) ==
PROVIDERS: Emergency Provider Nurse Practitioner Family
DX: L50.9 Urticaria, unspecified (principal); J45.909 Unspecified asthma, uncomplicated; E78.5 Hyperlipidemia, unspecified; Z21 Asymptomatic human immunodeficiency virus [HIV] infection status
CPT/HCPCS: 99213; G0463

== ENCOUNTER 2021-04-23 02:39 | Emergency (ER) | payer BC, SELFPAY ==
[2021-04-23 02:40] VITALS: BP 133/100; PULSE 100; RESP 16; TEMP 37.1; O2SAT 100
--- NOTE | 2021-04-23 02:59 | PC.NURSE ---
pt reports to this RN and ED MD that he had a bad anxiety attack earlier, but currently denies SI/HI/AH/VH. Reports he went to the police station to file a report for bullying at a [employer] [place] he [place]. Denies being suicidal. Denies being homicidal. 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
--- NOTE | 2021-04-23 03:10 | ED.GENADULT ---
HPI - General Adult General Chief complaint: Anxiety Stated complaint: psych Time Seen by Provider: 04/23/21 02:49 History of Present Illness HPI narrative: Patient is a 41-year-old gentleman who presents the emergency department with chief complaint of anxiety. The patient reports he was in a stressful situation this evening and had made a reference that this could have been interpreted as though he wanted to harm himself. Patient states that he has so much stuff going on in his life that is positive right now and has no thoughts of hurting himself and reports that it was just a stressful evening and he had a panic attack the patient reports he is never tried to harm himself before in the past denies a recent hospitalization for psychiatric reasons and states that he does have a brusher hand that he can contact for resources. Related Data Home Medications Medication Instructions Recorded Confirmed Biktarvy 1 tablet PO DAILY 01/27/20 05/26/20 phentermine 37.5 mg PO DAILY 02/20/21 02/20/21 Allergies Allergy/AdvReac Type Severity Reaction Status Date / Time banana Allergy Mild MOUTH SORES Verified 01/22/21 20:45 tomato Allergy Mild MOUTH SORES Verified 01/22/21 20:45 cat dander Allergy Unknown Itching Verified 01/22/21 20:45 ENVIRONMENTAL ALLERGENS AdvReac Unknown Itching Uncoded 05/26/20 16:41 Review of Systems Review of Systems: A 10 system review of systems was completed on the patient and is negative except for what is stated in the HPI. Nursing and ancillary documentation was reviewed. PMFSH Past Medical History Medical History (Updated 04/23/21 @ 03:13 by Wally Pappas MD) Anxiety Asthma Depression HIV (human immunodeficiency virus infection) Hyperlipidemia Leg fracture Surgical History Surgical History History of appendectomy History of tonsillectomy Social History Social History Smoking status: Never smoker Alcohol intake: current Substance use type: does not use Gender identity (if verbalized by the patient): Female Exam Narrative: GENERAL: Well-appearing, well-nourished, and in no acute distress. HEAD: Normocephalic, atraumatic. EYES: PERRLA and EOMI. ENT: Nares clear, no rhinorrhea or epistaxis. Mucous membranes moist. NECK: Supple. CHEST: Clear to auscultation. No respiratory distress. HEART: Regular rate and rhythm. No murmur heard. Normal peripheral pulses. ABDOMEN: Soft, nontender, nondistended, normal active bowel sounds. EXTREMITIES: Normal range of motion. No edema. SKIN: Warm, dry, no rash. NEURO: No focal deficits. Alert and oriented x3. PSYCH: Normal mood and affect. Patient denies suicidal or homicidal ideation Course Course Emergency Course: Patient is alert oriented denies suicidal or homicidal ideation has no access to weapons reports that he would return to the emergency department if he had any thoughts of harming himself and has a support network. At this time it is felt that is safe to be able to discharge the patient for outpatient follow-up Vital Signs Vital signs: Vital Signs Temperature 37.1 C 04/23/21 02:40 Pulse Rate 04/23/21 02:40 Respiratory Rate 04/23/21 02:40 Blood Pressure 133/100 H 04/23/21 02:40 Pulse Oximetry 04/23/21 02:40 Temperature 37.1 C 04/23/21 02:40 Pulse Rate 04/23/21 02:40 Respiratory Rate 16 04/23/21 02:40 Blood Pressure 133/100 H 04/23/21 02:40 Pulse Oximetry 04/23/21 02:40 Medical Decision Making Vital Signs Vital Signs: Vital Signs Temperature 37.1 C 04/23/21 02:40 Pulse Rate 04/23/21 02:40 Respiratory Rate 04/23/21 02:40 Blood Pressure 133/100 H 04/23/21 02:40 Pulse Oximetry 100 04/23/21 02:40 Temperature 37.1 C 04/23/21 02:40 Pulse Rate 04/23/21 02:40 Respiratory Rate 04/23/21 02:40 Blood
== END 2021-04-23 03:22 | disposition home or self-care (01) ==
PROVIDERS: Emergency Provider Emergency Medicine; PCP Physician Assistant Medical
DX: F41.9 Anxiety disorder, unspecified (principal); F32.9 Major depressive disorder, single episode, unspecified; E78.5 Hyperlipidemia, unspecified; Z21 Asymptomatic human immunodeficiency virus [HIV] infection status; Z87.09 Personal history of other diseases of the respiratory system
CPT/HCPCS: 99281

== ENCOUNTER 2022-01-24 21:53 | Emergency (ER) | payer BC, SELFPAY ==
--- NOTE | ~2022-01-24 | CT_ITS ---
EXAMINATION: CT abdomen pelvis wo con DATE: 01/24/2022 22:40 INDICATION: severe left sided abd pain, hx hernia TECHNIQUE: Computed tomography (CT) of the abdomen and pelvis was performed without intravenous contr ast. Automated exposure control and iterative reconstruction technique were employed. The dose-length product was 1423.08 mGy-cm. COMPARISON: 01/27/2020. FINDINGS: Lower thorax: Lingular scar. Small hiatal hernia. Liver: Normal. Biliary/Gallbladder: Gallbladder is normal. No bile duct dilation. Pancreas: No mass or duct dilation. Spleen: Normal. Adrenals:No mass. Kidneys: No mass, stone, or hydronephrosis. GI tract: No small or large bowel dilation. Appendectomy. Mesentery/Peritoneum: No ascites, mass, or free air. Inflamed epiploic appendage off the mid descendi ng colon in the left mid/lateral abdomen. Retroperitoneum: No mass. Minimal atherosclerotic calcification at the aortic bifurcation. Right comm on iliac artery measures 2.4 cm. The left common iliac artery measures 3.2 cm. Pelvis: Pelvic organs are within normal limits. Soft Tissues: Moderate fat-containing umbilical and periumbilical hernias with minimal inflammatory c hange, slightly larger than in the prior study but less inflamed. Small fat-containing right femoral hernia. Bones: No acute osseous finding. IMPRESSION: Epiploic appendagitis. The umbilical/periumbilical hernias appear less inflamed than in the prior [facility]. Reviewed, dictated and finalized at [facility]. IMPRESSION: Epiploic appendagitis. The umbilical/periumbilical hernias appear less inflamed than in the prior study.
[2022-01-24 21:56] VITALS: BP 139/87; PULSE 112; RESP 18; TEMP 36.2; O2SAT 98
[2022-01-24 23:05] VITALS: BP 135/91; PULSE 87; RESP 18; O2SAT 97
--- NOTE | 2022-01-24 23:07 | ED.ABDPAIN ---
HPI - Abdominal Pain General Chief Complaint: Abdominal Pain Stated Complaint: abd pain, poss hernia per pt Time Seen by Provider: 01/24/22 22:09 History of Present Illness HPI narrative: Patient is a 41-year-old male with a history of an umbilical hernia status postrepair, appendicitis status post appendectomy, here for evaluation of left-sided abdominal pain x 3 hours, onset while patient was at work. Patient states that pain is severe in nature, is constant, and is worse with movement. The pain remains in his LLQ and does not radiate. Reports a similar history of pain with his previous hernia. Reports nausea, but no vomiting. His appetite has been normal today. No changes to stools, fevers, chills. Related Data Home Medications Medication Instructions Recorded Confirmed bictegravir 50 mg-emtricitabine 1 tablet PO DAILY 01/27/20 05/26/20 200 mg-tenofovir alafenam 25 mg tablet (Biktarvy) phentermine 37.5 mg tablet 37.5 mg PO DAILY 02/20/21 02/20/21 Allergies Allergy/AdvReac Type Severity Reaction Status Date / Time banana Allergy Mild MOUTH SORES Verified 01/22/21 20:45 tomato Allergy Mild MOUTH SORES Verified 01/22/21 20:45 cat dander Allergy Unknown Itching Verified 01/22/21 20:45 ENVIRONMENTAL ALLERGENS AdvReac Unknown Itching Uncoded 05/26/20 16:41 Review of Systems Review of Systems: Gen.: Denies fevers or chills Eyes: Denies eye pain or visual change ENT: Denies congestion Respiratory: Denies shortness of breath or cough CV: Denies chest pain or palpitations GI: Reports abdominal pain, nausea denies burning, urgency, frequency or hematuria Musculoskeletal: Denies back pain or muscle pain Neuro: Denies numbness, tingling, weakness or focal weakness Skin: Denies rash Except as documented, all other systems reviewed and negative [facility] Past Medical History Medical History Anxiety Asthma Depression HIV (human immunodeficiency virus infection) Hyperlipidemia Leg fracture Surgical History Surgical History History of appendectomy History of tonsillectomy Social History Social History Smoking status: Never smoker Alcohol intake: current Substance use type: does not use Gender identity (if verbalized by the patient): Female Exam Narrative: APPEARANCE: Uncomfortable appearing Head: normocephalic and atraumatic. EYES: PERRLA/EOMI, conjunctivae clear NOSE: No nasal drainage EARS: External ear normal in appearance THROAT: Oropharynx is clear. Mucous membranes are moist. NECK: Supple. No adenopathy, no masses. RESPIRATORY: Airway patent, respirations nonlabored. Clear to auscultation bilaterally, no rales, rhonchi, wheezing. CARDIOVASCULAR: Regular rate and rhythm without murmurs, rubs, or gallops. ABDOMINAL: Tenderness to palpation in left lower quadrant. Soft, no masses. No rebound tenderness or guarding. MUSCULOSKELETAL: Extremities are warm and well-perfused. Moves all extremities well. No edema. NEURO: Normal speech. No focal neurologic deficits. SKIN: Skin is warm and dry. No rashes. PSYCHIATRIC: Normal affect/mood. Course Vital Signs Vital signs: Vital Signs Temperature 97.2 F L 01/24/22 21:56 Pulse Rate 112 H 01/24/22 21:56 Respiratory Rate 18 01/24/22 21:56 Blood Pressure 139/87 01/24/22 21:56 Pulse Oximetry 98 01/24/22 21:56 Oxygen Delivery Room Air 01/24/22 21:56 Temperature 97.2 F L 01/24/22 21:56 Pulse Rate 97 01/25/22 00:36 Respiratory Rate 18 01/25/22 00:36 Blood Pressure 140/102 H 01/25/22 00:36 Pulse Oximetry 97 01/25/22 00:36 Oxygen Delivery Room Air 01/24/22 21:56 MDM - Abdominal Pain MDM Narrative Medical decision making narrative: 41-year-old male with a history of abdominal hernia here for evaluation of left lower quadrant pain
[2022-01-24] MEDS: MORPHINE SULFATE (*CRX) 4 MG/ML INJ IV PUSH (23:14)
[2022-01-24] MEDS: ONDANSETRON INJ 4 MG/2 ML VIAL IV PUSH (23:14)
[2022-01-24 23:15] LABS: Basophils Absolute Auto 0.1 K/mm3 (0.0-0.1); Basophils Percent Auto 0.9 % (0.2-1.2); Eosinophils Absolute Auto 0.6 K/mm3 (0-0.3); Eosinophils Percent Auto 6.3 % (0-4.4); Hematocrit 39.7 % (42.0-52.0); Hemoglobin 13.8 g/dL (14.0-18.0); Immature Granulocyte Absolute 0.03 K/mm3 (0.00-0.031); Immature Granulocyte Percent A 0.3 % (0-0.5); Lymphocytes Absolute Auto 2.55 K/mm3 (0.9-3.2); Lymphocytes Percent Auto 27.2 % (18.3-44.2); Mean Corpuscular HGB Conc 34.8 g/dl (32-36); Mean Corpuscular Hemoglobin 33.3 pg (26-34); Mean Corpuscular Volume 95.9 fl (80-100); Mean Platelet Volume 12.6 fl (7.4-10.4); Monocytes Percent Auto 10.4 % (2.6-8.5); Neutrophils Absolute Auto 5.2 K/mm3 (1.3-6.7); Neutrophils Percent Auto 54.9 % (45.5-73.1); Platelet Count Result 136 k/mm3 (150-375); Red Blood Count 4.14 M/mm3 (4.6-6.20); Red Cell Distribution Width 12.9 % (11.5-14.5); White Blood Count 9.4 K/mm3 (4.5-10.0)
[2022-01-24 23:30] LABS: Lipase 95 U/L (23-300)
[2022-01-24 23:31] LABS: Alanine Aminotransferase 43 U/L (6-50); Albumin Level 4.3 g/dL (3.5-5.1); Alkaline Phosphatase 71 U/L (38-126); Anion Gap 5 mmol/L (8-16); Aspartate Amino Transferase 31 U/L (17-59); Bilirubin,Total 0.4 mg/dL (0.2-1.3); Blood Urea Nitrogen 14 mg/dL (9-20); Calcium 8.6 mg/dL (8.4-10.2); Carbon Dioxide 25 mmol/L (22-30); Chloride 110 mmol/L (98-107); Estimated CRCL calculation 101 ml/min; Estimated Glomerular Filt Rate > 60; Glucose 98 mg/dL (65-110); Lipase 99 U/L (23-300); Potassium 3.7 mmol/L (3.4-5.0); Sodium 140 mmol/L (137-145)
[2022-01-24 23:31] LABS: Appearance Urine Clear (Clear); Bilirubin Urine 1+ (Negative); Color Urine Yellow (Yellow); Glucose Urine UA Negative (Negative); Ketones Urine Negative (Negative); Leukocyte Esterase Ur Negative LEU/UL (Negative); Nitrate Urine Negative (Negative); Protein Urine 1+ mg/dL (Negative); Specific Grav Ur >= 1.030 (1.001-1.035); Urobilinogen Urine 0.2 mg/dL (<2.0)
[2022-01-24 23:34] LABS: Mucus Urine Heavy /lpf; RBC Urine 0-2 /hpf (0-2); WBC Urine 0-3 /hpf
[2022-01-25 00:03] LABS: Add Urine Microscopic? YES; Blood Urine Trace (Negative)
[2022-01-25 00:36] VITALS: BP 140/102; PULSE 97; RESP 18; O2SAT 97
== END 2022-01-25 00:37 | disposition home or self-care (01) ==
PROVIDERS: Physician Assistant; Emergency Provider Family Medicine
DX: Q43.8 Other specified congenital malformations of intestine (principal); F41.9 Anxiety disorder, unspecified; J45.909 Unspecified asthma, uncomplicated; F32.9 Major depressive disorder, single episode, unspecified; Z21 Asymptomatic human immunodeficiency virus [HIV] infection status
CPT/HCPCS: 36415; 74176; 80053; 81001; 83690; 85025; 96374; 96375; 99284; J2270; J2405

== ENCOUNTER 2022-01-26 12:39 | Emergency (ER) | payer BC, SELFPAY ==
--- NOTE | ~2022-01-26 | CT_ITS ---
EXAMINATION: CT abdomen pelvis wo con DATE: 01/26/2022 13:53 INDICATION: Left lower quadrant abdominal pain. TECHNIQUE: Computed tomography (CT) of the abdomen and pelvis was performed without intravenous contr ast. Automated exposure control and iterative reconstruction technique were employed. The dose-length product was 1331.97 mGy-cm. COMPARISON: CT abdomen and pelvis 01/24/2022 FINDINGS: The visualized portions of the lung bases demonstrate mild atelectasis. No pleural effusion . The heart size is normal. No pericardial effusion. The liver, gallbladder, spleen, pancreas, adrena l glands, and kidneys are normal. There is no urolithiasis. There is a right inguinal hernia containi ng fat. There is fat stranding around an epiploic appendage of descending colon, consistent with epip loic appendagitis. There are changes of appendectomy. There are no dilated loops of bowel. There are changes of umbilical hernia repair. There is a supraumbilical ventral hernia containing fat superior to the mesh. There are no pathologically enlarged lymph nodes. There is no free intraperitoneal fluid . There is a 3.0 cm from aneurysm of left common iliac artery. 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 There is mild thoracic spondylosis. IMPRESSION: 1. Epiploic appendagitis of descending colon with mildly worsened inflammation. 2. Supraumbilical ventral hernia containing fat. 3. Right inguinal hernia containing fat. Reviewed, dictated and finalized at location B.
[2022-01-26 12:57] VITALS: BP 123/79; PULSE 97; RESP 16; TEMP 36.6; O2SAT 97
[2022-01-26 13:18] LABS: Basophils Absolute Auto 0.1 K/mm3 (0.0-0.1); Eosinophils Absolute Auto 0.5 K/mm3 (0-0.3); Eosinophils Percent Auto 6.1 % (0-4.4); Hematocrit 41.1 % (42.0-52.0); Hemoglobin 13.9 g/dL (14.0-18.0); Immature Granulocyte Absolute 0.03 K/mm3 (0.00-0.031); Immature Granulocyte Percent A 0.3 % (0-0.5); Lymphocytes Absolute Auto 2.35 K/mm3 (0.9-3.2); Lymphocytes Percent Auto 27.4 % (18.3-44.2); Mean Corpuscular HGB Conc 33.8 g/dl (32-36); Mean Corpuscular Hemoglobin 32.7 pg (26-34); Mean Corpuscular Volume 96.7 fl (80-100); Mean Platelet Volume 12.7 fl (7.4-10.4); Monocytes Absolute Auto 0.9 K/mm3 (0.1-0.6); Monocytes Percent Auto 10.4 % (2.6-8.5); Neutrophils Absolute Auto 4.7 K/mm3 (1.3-6.7); Neutrophils Percent Auto 54.8 % (45.5-73.1); Platelet Count Result 141 k/mm3 (150-375); Red Blood Count 4.25 M/mm3 (4.6-6.20); Red Cell Distribution Width 13.1 % (11.5-14.5); White Blood Count 8.6 K/mm3 (4.5-10.0)
[2022-01-26 13:28] LABS: Alanine Aminotransferase 44 U/L (6-50); Albumin Level 4.4 g/dL (3.5-5.1); Alkaline Phosphatase 83 U/L (38-126); Anion Gap 6 mmol/L (8-16); Aspartate Amino Transferase 33 U/L (17-59); Bilirubin,Total 0.5 mg/dL (0.2-1.3); Blood Urea Nitrogen 12 mg/dL (9-20); Calcium 8.6 mg/dL (8.4-10.2); Carbon Dioxide 24 mmol/L (22-30); Chloride 109 mmol/L (98-107); Estimated CRCL calculation 101 ml/min; Estimated Glomerular Filt Rate > 60; Glucose 117 mg/dL (65-110); Lipase 90 U/L (23-300); Sodium 139 mmol/L (137-145)
--- NOTE | 2022-01-26 13:44 | ED.ABDPAIN ---
HPI - Abdominal Pain General Chief Complaint: Abdominal Pain Stated Complaint: LLQ belly pain Time Seen by Provider: 01/26/22 13:27 Source: RN notes reviewed History of Present Illness HPI narrative: Patient presents emergency department from home for abdominal pain. Patient states abdominal pain began approximately 4 days ago. The pain is located in the left abdomen does not radiate described as sharp and stabbing. Associated nausea. Denies any fevers or chills chest pain shortness of breath vomiting diarrhea or any other symptoms. Patient states he was here [address] scan at that time had been done and he states the pain had improved with morphine but is continue to worsen at home he states that he was told by Dr. Schwab to return to the emergency department for further evaluation as he felt that it was scar tissue causing his symptoms Related Data Home Medications Medication Instructions Recorded Confirmed bictegravir 50 mg-emtricitabine 1 tablet PO DAILY 01/27/20 05/26/20 200 mg-tenofovir alafenam 25 mg tablet (Biktarvy) phentermine 37.5 mg tablet 37.5 mg PO DAILY 02/20/21 02/20/21 Allergies Allergy/AdvReac Type Severity Reaction Status Date / Time banana Allergy Mild MOUTH SORES Verified 01/22/21 20:45 tomato Allergy Mild MOUTH SORES Verified 01/22/21 20:45 cat dander Allergy Unknown Itching Verified 01/22/21 20:45 ENVIRONMENTAL ALLERGENS AdvReac Unknown Itching Uncoded 05/26/20 16:41 Review of Systems Review of Systems: Gen.: Denies fevers or chills ENT: Denies congestion Respiratory: Denies shortness of breath or cough CV: Denies chest pain or palpitations GI: See HPI denies burning, urgency, frequency or hematuria Musculoskeletal: Denies back pain or muscle pain Neuro: Denies numbness, tingling, weakness or focal weakness Skin: Denies rash Except as documented, all other systems reviewed and negative [facility] Past Medical History Medical History (Updated 01/26/22 @ 14:20 by Kirill Lanza DO) Anxiety Asthma Depression HIV (human immunodeficiency virus infection) Hyperlipidemia Leg fracture Surgical History Surgical History History of appendectomy History of tonsillectomy Social History Social History Smoking status: Never smoker Alcohol intake: current Substance use type: does not use Gender identity (if verbalized by the patient): Female Exam Narrative: APPEARANCE: No acute distress, nontoxic, resting in bed HEENT: Normocephalic, atraumatic, OMM RESPIRATORY: No respiratory distress, clear to auscultation bilaterally with no rhonchi wheezing or rales CARDIOVASCULAR: RRR s murmur ABDOMINAL: Soft nondistended tender palpation left upper quadrant left lower quadrant no tenderness in right upper quadrant right lower quadrant no rebound or guarding MUSCULOSKELETAl: Moves all extremities. No clubbing, cyanosis or edema. NEURO: Awake and alert. Following commands, speech normal, no focal deficits SKIN:: Warm, dry. Normal Color PSYCHIATRIC: Normal affect/mood Course Course Emergency Course: Reviewed old records patient with epiploic appendagitis on CT scan Discussed Dr. Lara for general surgery recommends repeat CT scan Following CT scan discussed with Dr. Lara recommends patient started on Augmentin with Sweetser at home for pain with follow-up as an outpatient Patient states that they are feeling better at this time. States abdominal pain has improved Discussed with patient results of workup and diagnosis. Discussed need for follow-up with primary care physician, reasons to return to the emergency department in proper use of medication. Patient understands and agrees to current treatment plan. Patient states she does have a prescription for Sweetser at home but is not gotten it filled yet and will fill it Vital Signs Vital signs: Vital Signs Temperature 9
[2022-01-26] MEDS: MORPHINE SULFATE (*CRX) 4 MG/ML INJ IV PUSH (13:57)
[2022-01-26] MEDS: SODIUM CHLORIDE 0.9% IV 1,000 ML 999 ML IV CONT (13:58)
[2022-01-26 14:01] LABS: Appearance Urine Clear (Clear); Bilirubin Urine Negative (Negative); Color Urine Yellow (Yellow); Glucose Urine UA Negative (Negative); Ketones Urine Trace mg/dL (Negative); Leukocyte Esterase Ur Negative LEU/UL (Negative); Nitrate Urine Negative (Negative); Protein Urine 1+ mg/dL (Negative); Specific Grav Ur >= 1.030 (1.001-1.035); Urobilinogen Urine 0.2 mg/dL (<2.0)
[2022-01-26 14:09] LABS: Mucus Urine Few /lpf; Squamous Epithelial Cell Urine Rare /hpf (Few); WBC Urine 0-3 /hpf
[2022-01-26 14:14] LABS: Add Urine Microscopic? YES; Blood Urine Trace-Intact (Negative)
[2022-01-26] MEDS: AMOXICILLIN/CLAVULANATE K 875-125 MG TAB 1 TABLET PO (14:25)
[2022-01-26 14:29] VITALS: BP 120/85; PULSE 84; RESP 16; O2SAT 100
== END 2022-01-26 14:31 | disposition home or self-care (01) ==
PROVIDERS: Emergency Provider Emergency Medicine
DX: K63.89 Other specified diseases of intestine (principal); J45.909 Unspecified asthma, uncomplicated; E78.5 Hyperlipidemia, unspecified; Z21 Asymptomatic human immunodeficiency virus [HIV] infection status; K43.9 Ventral hernia without obstruction or gangrene; K40.90 Unilateral inguinal hernia, without obstruction or gangrene, not specified as recurrent
CPT/HCPCS: 36415; 74176; 80053; 81001; 83690; 85025; 96361; 96374; 99284; A9270; J2270; J7030

== ENCOUNTER 2022-04-20 19:25 | Emergency (ER) | payer BC, SELFPAY ==
--- NOTE | ~2022-04-20 | XR_ITS ---
EXAMINATION: XR chest 2V DATE: 04/20/2022 19:52 INDICATION: Chest pain, shortness of breath and dizziness TECHNIQUE: PA and lateral views of the chest were obtained. COMPARISON: Chest radiograph dated 05/26/2020 FINDINGS: Small lung volumes. Unchanged mild lingular atelectasis/scarring best appreciated on the lateral proj ection. No pleural effusion or pneumothorax. Heart size is normal. 43 degree upper thoracic levoscoli osis. IMPRESSION: 1. Unchanged mild lingular atelectasis/scarring. No other acute cardiopulmonary disease. Reviewed, dictated and finalized at location A.
[2022-04-20 19:28] VITALS: BP 144/96; PULSE 113; RESP 18; TEMP 37.1; O2SAT 98
--- NOTE | 2022-04-20 19:30 | ECG_ITS ---
Measurements Intervals [place] Rate: 90 P: 45 DE: 170 QRS: 21 QRSD: 96 T: 44 QT: 338 QTc: 415 Interpretive Statements SINUS RHYTHM ATRIAL PREMATURE COMPLEX EARLY PRECORDIAL R/S TRANSITION MINIMAL Q WAVES- INFERIOR LEADS BORDERLINE ECG COMPARED TO ECG 05/26/2020 16:33:09 SINUS RHYTHM NOW PRESENT Electronically Signed On 04-20-2022 20:39:08 CDT by Collin Mcgraw D.O.
[2022-04-20 19:59] LABS: Basophils Absolute Auto 0.1 K/mm3 (0.0-0.1); Basophils Percent Auto 0.8 % (0.2-1.2); Eosinophils Absolute Auto 0.7 K/mm3 (0-0.3); Eosinophils Percent Auto 7.1 % (0-4.4); Hematocrit 41.1 % (42.0-52.0); Hemoglobin 14.6 g/dL (14.0-18.0); Immature Granulocyte Absolute 0.06 K/mm3 (0.00-0.031); Immature Granulocyte Percent A 0.6 % (0-0.5); Lymphocytes Absolute Auto 3.48 K/mm3 (0.9-3.2); Lymphocytes Percent Auto 34.9 % (18.3-44.2); Mean Corpuscular HGB Conc 35.5 g/dl (32-36); Mean Corpuscular Hemoglobin 33.6 pg (26-34); Mean Corpuscular Volume 94.5 fl (80-100); Mean Platelet Volume 12.9 fl (7.4-10.4); Monocytes Absolute Auto 0.9 K/mm3 (0.1-0.6); Monocytes Percent Auto 8.5 % (2.6-8.5); Neutrophils Absolute Auto 4.8 K/mm3 (1.3-6.7); Neutrophils Percent Auto 48.1 % (45.5-73.1); Platelet Count Result 154 k/mm3 (150-375); Red Blood Count 4.35 M/mm3 (4.6-6.20)
[2022-04-20 20:10] LABS: Alanine Aminotransferase 47 U/L (6-50); Albumin Level 4.5 g/dL (3.5-5.1); Alkaline Phosphatase 95 U/L (38-126); Anion Gap 17 mmol/L (8-16); Aspartate Amino Transferase 37 U/L (17-59); Bilirubin,Total 0.7 mg/dL (0.2-1.3); Blood Urea Nitrogen 18 mg/dL (9-20); Carbon Dioxide 18 mmol/L (22-30); Chloride 104 mmol/L (98-107); Estimated CRCL calculation 100 ml/min; Estimated Glomerular Filt Rate > 60; Glucose 112 mg/dL (65-110); Lipase 94 U/L (23-300); Potassium 3.9 mmol/L (3.4-5.0); Sodium 139 mmol/L (137-145)
[2022-04-20 20:17] LABS: INR 0.9; Partial Thromboplastin Time 25.2 SECONDS (22.3-36.8); Prothrombin Time 11.9 Seconds (11.1-14.7)
[2022-04-20 20:21] LABS: Troponin I < 0.012 ng/mL (0.000-0.034)
--- NOTE | 2022-04-21 00:06 | PC.NURSE ---
PT LEFT AT APPROX 2230 ON 04/20/2022; STATING HE HAD TO LEAVE TO CALL HIS BOSSES, BUT HE WOULD BE BACK LATER AND CHECK BACK IN.
== END 2022-04-20 22:30 | disposition left against medical advice (07) ==
LOC: ANHED 04-21 00:16
PROVIDERS: Emergency Provider Emergency Medicine
DX: R06.02 Shortness of breath (principal); Z21 Asymptomatic human immunodeficiency virus [HIV] infection status
CPT/HCPCS: 36415; 71046; 80053; 83690; 84484; 85025; 85610; 85730; 93005; 99199

== ENCOUNTER 2022-04-20 23:42 | Emergency (ER) | payer BC, SELFPAY ==
[2022-04-20 23:50] VITALS: BP 132/84; PULSE 105; TEMP 36.2; O2SAT 100
[2022-04-21] VITALS (10 sets, daily range): BP systolic 114–139; BP diastolic 81–100; PULSE 71–91; RESP 8–22; TEMP 36.4; O2SAT 98–100
--- NOTE | 2022-04-21 00:41 | ECG_ITS ---
Measurements Intervals [place] Rate: 99 P: 47 AR: 144 QRS: 33 QRSD: 100 T: 42 QT: 327 QTc: 421 Interpretive Statements SINUS RHYTHM ATRIAL PREMATURE COMPLEX EARLY PRECORDIAL R/S TRANSITION BASELINE WANDER- V1, V3-V6 BORDERLINE ECG COMPARED TO ECG 04/20/2022 19:35:09 NO SIGNIFICANT CHANGES Electronically Signed On 04-21-2022 14:43:52 CDT by Collin Mcgraw D.O.
[2022-04-21 01:23] LABS: SARS-CoV-2 RNA PCR Negative
[2022-04-21 03:01] LABS: D Dimer 0.26 ug/mL (<0.48)
[2022-04-21 03:07] LABS: Troponin I < 0.012 ng/mL (0.000-0.034)
--- NOTE | 2022-04-21 03:39 | ED.SOB ---
HPI - SOB/Dyspnea General Chief Complaint: Shortness of Breath/Dyspnea Stated Complaint: Shortness of breath Time Seen by Provider: 04/21/22 02:37 History of Present Illness HPI Narrative: Patient is a 6-year-old male who presents the ER with shortness of breath. Ongoing over the last couple days. Associate with sinus congestion and postnasal drip. He does have some cough. Occasionally hears himself wheezing. No exertional dyspnea. No nausea or vomiting or chest pain. Concerned he may have COVID due to a close contact exposure. Related Data Home Medications Medication Instructions Recorded Confirmed bictegravir 50 mg-emtricitabine 1 tablet PO DAILY 01/27/20 05/26/20 200 mg-tenofovir alafenam 25 mg tablet (Biktarvy) phentermine 37.5 mg tablet 37.5 mg PO DAILY 02/20/21 02/20/21 Allergies Allergy/AdvReac Type Severity Reaction Status Date / Time banana Allergy Mild MOUTH SORES Verified 04/21/22 02:10 tomato Allergy Mild MOUTH SORES Verified 04/21/22 02:10 cat dander Allergy Unknown Itching Verified 04/21/22 02:10 ENVIRONMENTAL ALLERGENS AdvReac Unknown Itching Uncoded 04/21/22 02:10 Review of Systems Review of Systems: All systems reviewed & are unremarkable except as noted in HPI and below Constitutional: Constitutional: Denies chills and Denies fever(s) ENT: Reports nasal congestion and Reports sore throat Cardiovascular: Cardiovascular: Denies chest pain, Denies rapid heart rate and Denies radiating jaw, neck or arm pain Respiratory: Respiratory: Reports cough, Reports dyspnea and Reports wheezing Gastrointestinal: Gastrointestinal: Denies abdominal pain, Denies nausea and Denies vomiting REPLACED BY [facility] Past Medical History Medical History (Updated 04/21/22 @ 03:59 by Luigi Nichols MD) Anxiety Asthma Depression HIV (human immunodeficiency virus infection) Hyperlipidemia Leg fracture Surgical History Surgical History History of appendectomy History of tonsillectomy Social History Social History Smoking status: Never smoker Alcohol intake: current Substance use type: does not use Gender identity (if verbalized by the patient): Female Exam Narrative: GENERAL: Well-appearing, well-nourished, and in no acute distress. HEAD: Normocephalic, atraumatic. CHEST: Clear to auscultation. No respiratory distress. HEART: Regular rate and rhythm. Normal peripheral pulses. ABDOMEN: Soft, nontender, nondistended. EXTREMITIES: Normal range of motion. No edema. SKIN: Warm, dry, no rash. NEURO: Alert and oriented x3. PSYCH: Normal mood and affect. Course Course Emergency Course: Patient informed of results. There is additional blood work from when he was in triage earlier in the day that is also normal. Patient requesting nebulizer treatment despite clear lungs. We will give him 1 treatment and discharge. Vital Signs Vital signs: Vital Signs Temperature 97.1 F L 04/20/22 23:50 Pulse Rate 105 H 04/20/22 23:50 Blood Pressure 132/84 04/20/22 23:50 Pulse Oximetry 100 04/20/22 23:50 Temperature 97.5 F L 04/21/22 02:08 Pulse Rate 73 04/21/22 02:18 Respiratory Rate 13 04/21/22 02:18 Blood Pressure 135/100 H 04/21/22 02:18 Pulse Oximetry 99 04/21/22 02:18 Oxygen Delivery Room Air 04/21/22 02:18 MDM - SOB/Dyspnea Lab Data Labs: Lab Results 04/21/22 04/21/22 04/21/22 Range/Units 00:31 02:36 02:36 D-Dimer 0.26 (<0.48) ug/mL Troponin I < 0.012 (0.000-0.034) ng/mL SARS-CoV-2 RNA (RT-PCR) Negative Imaging Data Radiologist's impression: EXAMINATION: XR chest 2V DATE: 04/20/2022 19:52 INDICATION: Chest pain, shortness of breath and dizziness TECHNIQUE: PA and lateral views of the chest were obtained. COMPARISON: Chest radiograph dated 05/26/2020 FINDINGS: Small lung volumes. Unchanged mild lingular a
[2022-04-21] MEDS: IPRATROPIUM BR 0.02% INH SOLN 0.5 MG/2.5 ML VIAL INHALATION (04:10)
[2022-04-21] MEDS: ALBUTEROL SULFATE NEB 2.5 MG/3 ML INH 5 MG INHALATION (04:13)
== END 2022-04-21 04:27 | disposition home or self-care (01) ==
PROVIDERS: Emergency Medicine; Emergency Provider Emergency Medicine
DX: J06.9 Acute upper respiratory infection, unspecified (principal); Z20.822 Contact with and (suspected) exposure to COVID-19; J45.909 Unspecified asthma, uncomplicated; E78.5 Hyperlipidemia, unspecified; Z21 Asymptomatic human immunodeficiency virus [HIV] infection status
CPT/HCPCS: 36415; 71046; 80053; 83690; 84484; 85025; 85380; 85610; 85730; 93005; 94640; 99284; C9803; U0003; U0005

== ENCOUNTER 2022-05-15 11:54 | Emergency (ER) | payer BC, SELFPAY ==
[2022-05-15 12:04] VITALS: BP 124/94; PULSE 111; RESP 16; TEMP 37.1; O2SAT 100
--- NOTE | 2022-05-15 12:30 | ED.BACK ---
HPI - Back Pain/Injury General Chief Complaint: Skin/Abscess/Foreign Body Stated Complaint: lower back pain Time Seen by Provider: 05/15/22 12:31 Source: patient, family and RN notes reviewed Mode of arrival: ambulatory Limitations: no limitations History of Present Illness HPI Narrative: 42-year-old male presents to the [facility] with complaints of pain to the inner portion of the right buttock for 2 days. Patient denies any abdominal pain or fevers. No nausea vomiting or diarrhea. MD elicited complaint: back pain Related Data Home Medications Medication Instructions Recorded Confirmed bictegravir 50 mg-emtricitabine 1 tablet PO DAILY 01/27/20 05/15/22 200 mg-tenofovir alafenam 25 mg tablet (Biktarvy) Allergies Allergy/AdvReac Type Severity Reaction Status Date / Time banana Allergy Mild MOUTH SORES Verified 05/15/22 12:52 tomato Allergy Mild MOUTH SORES Verified 05/15/22 12:52 cat dander Allergy Unknown Itching Verified 05/15/22 12:52 ENVIRONMENTAL ALLERGENS AdvReac Unknown Itching Uncoded 05/15/22 12:52 Review of Systems Review of Systems: All systems reviewed & are unremarkable except as noted in HPI and below Constitutional: Constitutional: Reports no additional constitutional complaints and Denies weakness Eyes: Eyes: Reports no additional eye complaints ENT: Reports system reviewed and no additional complaints, except as documented Cardiovascular: Cardiovascular: Reports no additional cardiovascular complaints and Denies chest pain Respiratory: Respiratory: Reports no additional respiratory complaints Gastrointestinal: Gastrointestinal: Reports no additional gastrointestinal complaints and Denies abdominal pain Musculoskeletal: Musculoskeletal: Reports as per HPI, Reports back pain and Denies numbness Integumentary/Breasts: Skin/Breast: Reports system reviewed and no additional complaints, except as docu Neurologic: Reports system reviewed and no additional complaints, except as documented, Denies focal weakness, Denies numbness and Denies weakness Psychiatric: Psychiatric: Reports no additional psychiatric complaints Allergic/Immunologic: Allergic/Immunologic: Reports no additional allergic/immunologic complaints [facility] Past Medical History Medical History (Updated 05/15/22 @ 12:52 by Parris Tavera APRN) Anxiety Asthma Depression HIV (human immunodeficiency virus infection) Hyperlipidemia Leg fracture Surgical History Surgical History History of appendectomy History of tonsillectomy Social History Social History Smoking status: Never smoker Alcohol intake: current Substance use type: does not use Gender identity (if verbalized by the patient): Female Comments At the time of my signature, I reviewed and agree with the nursing past medical, surgical, social, and family history. There is no relevant family history pertinent to the patient complaint. Exam Const: General: healthy appearing, no acute distress, alert and well nourished Nutritional Appearance: well nourished and obese Orientation/consciousness: patient oriented x3 Limitations: no limitations HENMT: Head: normal to inspection Eyes: Pupils: Equal, round and reactive pupils present Neck: Neck: normal visual inspection, no lymphadenopathy and no meningeal signs Chest: Chest palpation & inspection: normal inspection of the chest Resp: Effort & Inspection: normal respiratory effort and no use of accessory muscles Auscultation: clear to auscultation bilaterally, no crackles, no rales, no rhonchi and no wheezes Cardio: Rate: tachycardic Rhythm: regular rhythm GI: GI Palp: Yes Soft to palpation, No Tenderness to palpation present (GI) and No Guarding due to palpation present (GI) : General: Yes no CVA tenderness Back/Spine/Pelvis: Back: no CVA tenderness Cervical Spine: normal cervical lord
== END 2022-05-15 13:00 | disposition home or self-care (01) ==
PROVIDERS: Emergency Provider Nurse Practitioner
DX: L05.01 Pilonidal cyst with abscess (principal); J45.909 Unspecified asthma, uncomplicated; E78.5 Hyperlipidemia, unspecified; Z21 Asymptomatic human immunodeficiency virus [HIV] infection status
CPT/HCPCS: 87070; 87075; 87076; 87147; 87185; 87205; 99213; G0463

== ENCOUNTER 2023-03-31 09:26 | Emergency (ER) | payer BC, SELFPAY ==
--- NOTE | ~2023-03-31 | XR_ITS ---
EXAMINATION: XR ankle LT min 3V DATE: 03/31/2023 09:57 INDICATION: Left ankle injury and pain. TECHNIQUE: 4 views of left ankle were obtained. COMPARISON: None. FINDINGS: Bone alignment is normal. No fracture. Joint spaces are well maintained. There is ankle sof t tissue swelling. IMPRESSION: 1. No fracture. Reviewed, dictated and finalized at location A. IMPRESSION: 1. No fracture.
[2023-03-31 09:36] VITALS: BP 120/92; PULSE 91; RESP 18; TEMP 36.6; O2SAT 99
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
[2023-03-31] MEDS: KETOROLAC (*BKC) 60 MG/2 ML VIAL IM (09:55)
== END 2023-03-31 10:49 | disposition home or self-care (01) ==
PROVIDERS: Emergency Provider Physician Assistant
DX: S93.402A Sprain of unspecified ligament of left ankle, initial encounter (principal); S96.912A Strain of unspecified muscle and tendon at ankle and foot level, left foot, initial encounter; J45.909 Unspecified asthma, uncomplicated; E78.5 Hyperlipidemia, unspecified; Z21 Asymptomatic human immunodeficiency virus [HIV] infection status; Z79.899 Other long term (current) drug therapy; X50.3XXA Overexertion from repetitive movements, initial encounter; Y93.A1 Activity, exercise machines primarily for cardiorespiratory conditioning
CPT/HCPCS: 73610; 96372; 99283; J1885

== ENCOUNTER 2023-06-18 19:21 | Emergency (ER) | payer BC, SELFPAY ==
[2023-06-18 19:40] VITALS: BP 138/84; PULSE 104; RESP 14; TEMP 36.4; O2SAT 100
--- NOTE | 2023-06-18 22:43 | PC.NURSE ---
patient did not answer when calling from waiting room.
--- NOTE | 2023-06-18 22:44 | PC.NURSE ---
Pt attempted to call back to room x2 with no answer. Search was conducted in lobby and outside ED with no success.
--- NOTE | 2023-06-18 23:03 | PC.NURSE ---
Called at [phone]- no answer.
== END 2023-06-19 01:09 | disposition left against medical advice (07) ==
DX: R10.9 Unspecified abdominal pain (principal)
CPT/HCPCS: 99199

== ENCOUNTER 2023-08-22 19:19 | Emergency (ER) | payer BC, SELFPAY ==
[2023-08-22 19:23] VITALS: BP 134/87; PULSE 104; RESP 14; TEMP 36.4; O2SAT 100
--- NOTE | 2023-08-22 23:39 | PC.NURSE ---
pt. called to triage. no answer
== END 2023-08-23 00:25 | disposition left against medical advice (07) ==
LOC: ANHED 08-23 00:21
DX: R10.9 Unspecified abdominal pain (principal)
CPT/HCPCS: 99199

== ENCOUNTER 2023-09-20 07:51 | Emergency (ER) | payer BC, SELFPAY ==
[2023-09-20] VITALS (9 sets, daily range): BP systolic 102–140; BP diastolic 54–90; PULSE 75–96; RESP 13–22; TEMP 36.3–36.4; O2SAT 98–99
--- NOTE | ~2023-09-20 | CT_ITS ---
EXAMINATION: CT abdomen pelvis w con INDICATION: Abdominal pain, hernia TECHNIQUE: Computed tomographic images of the abdomen and pelvis were obtained after the administrati on of 100 cc of Omnipaque 350 intravenous contrast. The dose-length product (DLP) was 1669.11 mGy-cm. Automated exposure control and iterative reconstruction technique were employed. COMPARISON: 01/26/2022 FINDINGS: Minimal dependent atelectasis is present in the lung bases. The heart size is normal. The l iver is diffusely low in attenuation when compared with the spleen, consistent with hepatic steatosis . The spleen, pancreas, gallbladder, and adrenal glands are normal. The kidneys are unremarkable. No pathologically enlarged abdominal or pelvic lymph nodes are identified. No free intraperitoneal gas o r evidence of bowel obstruction. There is a supraumbilical hernia containing fat without significant change. A right internal hernia containing fat is also noted. IMPRESSION: 1. Supraumbilical and right upper lobe hernias containing fat. Reviewed, dictated and finalized at location B. 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
--- NOTE | ~2023-09-20 | XR_ITS ---
EXAMINATION: XR chest 2V DATE: 09/20/2023 08:11 INDICATION: Shortness of breath TECHNIQUE: AP and lateral views of the chest are obtained. COMPARISON: 04/20/2022 FINDINGS: The lungs are free of acute opacities. No pleural effusion or pneumothorax. The cardiomedia stinal silhouette is normal. There is mild thoracic spondylosis. There is upper thoracic levoscoliosi s. IMPRESSION: 1. No acute cardiopulmonary abnormality. Reviewed, dictated and finalized at location B. 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
--- NOTE | 2023-09-20 07:52 | ECG_ITS ---
Measurements Intervals [place] Rate: 95 P: 38 MN: 156 QRS: 18 QRSD: 94 T: 46 QT: 346 QTc: 435 Interpretive Statements SINUS RHYTHM WITH SINUS ARRHYTHMIA EARLY R-WAVE TRANSITION BORDERLINE ECG COMPARED TO ECG 04/20/2022 23:58:48 NO SIGNIFICANT CHANGE Electronically Signed On 09-20-2023 15:29:23 MECHANIC INSULATOR by Yohannes Matthews M.D.
[2023-09-20 08:12] LABS: Basophils Absolute Auto 0.1 K/mm3 (0.0-0.1); Eosinophils Absolute Auto 0.5 K/mm3 (0-0.3); Eosinophils Percent Auto 6.7 % (0-4.4); Hematocrit 45.3 % (42.0-52.0); Immature Granulocyte Absolute 0.02 K/mm3 (0.00-0.031); Immature Granulocyte Percent A 0.3 % (0-0.5); Lymphocytes Percent Auto 39.3 % (18.3-44.2); Mean Corpuscular HGB Conc 33.1 g/dl (32-36); Mean Corpuscular Hemoglobin 32.5 pg (26-34); Mean Corpuscular Volume 98.1 fl (80-100); Mean Platelet Volume 12.6 fl (7.4-10.4); Monocytes Absolute Auto 0.6 K/mm3 (0.1-0.6); Neutrophils Absolute Auto 3.5 K/mm3 (1.3-6.7); Neutrophils Percent Auto 44.7 % (45.5-73.1); Platelet Count Result 142 k/mm3 (150-375); Red Blood Count 4.62 M/mm3 (4.6-6.20); White Blood Count 7.9 K/mm3 (4.5-10.0)
[2023-09-20 08:42] LABS: Alanine Aminotransferase 44 U/L (6-50); Albumin Level 4.4 g/dL (3.5-5.1); Alkaline Phosphatase 70 U/L (38-126); Aspartate Amino Transferase 42 U/L (17-59); Bilirubin,Total 0.9 mg/dL (0.2-1.3); Blood Urea Nitrogen 13 mg/dL (9-20); Calcium 9.1 mg/dL (8.4-10.2); Chloride 109 mmol/L (98-107); Estimated CRCL calculation 106 ml/min; Estimated Glomerular Filt Rate > 60; Glucose 104 mg/dL (65-110); Potassium 4.3 mmol/L (3.4-5.0); Sodium 139 mmol/L (137-145)
[2023-09-20 09:03] LABS: Anion Gap 12 mmol/L (8-16); Carbon Dioxide 18 mmol/L (22-30)
--- NOTE | 2023-09-20 09:08 | ED.SOB ---
HPI - SOB/Dyspnea General Chief Complaint: Shortness of Breath/Dyspnea Stated Complaint: Dizziness/SOB Time Seen by Provider: 09/20/23 09:07 Source: patient Mode of arrival: ambulatory Limitations: no limitations History of Present Illness HPI Narrative: This is a 43 year old male that presents to the ER for abdominal pain. Reports his hernia has been hurting the last couple of days since working out. This hernia has previously been repaired. Reports abnormal bulging in the area. Also reports some intermittent shortness of breath. Denies fever, chest pain, vomiting, or lower extremity edema. Related Data Home Medications Medication Instructions Recorded Confirmed bictegravir 50 mg-emtricitabine 1 tablet PO DAILY 01/27/20 05/15/22 200 mg-tenofovir alafenam 25 mg tablet (Biktarvy) Allergies Allergy/AdvReac Type Severity Reaction Status Date / Time banana Allergy Mild MOUTH SORES Verified 09/20/23 08:00 tomato Allergy Mild MOUTH SORES Verified 09/20/23 08:00 cat dander Allergy Unknown Itching Verified 09/20/23 08:00 ENVIRONMENTAL ALLERGENS AdvReac Unknown Itching Uncoded 09/20/23 08:00 Review of Systems Review of Systems: CONSTITUTIONAL: Denies fever CARDIOVASCULAR: Denies chest pain, or edema. RESPIRATORY: Reports dyspnea. Denies cough. GASTROINTESTINAL: Reports abdominal pain. Denies nausea, vomiting All systems reviewed & are unremarkable except as noted in HPI and below PMFSH Past Medical History Medical History (Updated 09/20/23 @ 12:10 by Mounika Gannon PA-C) Anxiety Asthma Depression HIV (human immunodeficiency virus infection) Hyperlipidemia Leg fracture Surgical History Surgical History History of appendectomy History of tonsillectomy Social History Social History Smoking status: Never smoker Alcohol intake: current Substance use type: does not use Gender identity (if verbalized by the patient): Female Exam Narrative: GENERAL: Well-appearing, well-nourished, and in no acute distress. HEAD: Normocephalic, atraumatic. EYES: EOMI. ENT: Nares clear, no rhinorrhea or epistaxis. Mucous membranes moist. Oropharynx without tonsillar hypertrophy exudate or other lesions. NECK: Supple. No adenopathy or masses. No JVD CHEST: Clear to auscultation. No respiratory distress. No wheezes rales or rhonchi HEART: Regular rate and rhythm. No murmur heard. Normal peripheral pulses. ABDOMEN: Soft, nondistended, normal active bowel sounds. Mild tenderness to palpation in the supraumbilical region EXTREMITIES: Normal range of motion. No edema. SKIN: Warm, dry, no rash. NEURO: No focal deficits. Alert and oriented x3. PSYCH: Normal mood and affect Course Course Emergency Course: Patient updated on his workup and agrees with plan of care. Resting comfortably Vital Signs Vital signs: Vital Signs Temperature 97.4 F L 09/20/23 07:54 Pulse Rate 91 09/20/23 07:54 Respiratory Rate 22 H 09/20/23 07:54 Blood Pressure 140/82 09/20/23 07:54 Pulse Oximetry 99 09/20/23 07:54 Oxygen Delivery Room Air 09/20/23 07:54 Temperature 97.4 F L 09/20/23 07:54 Pulse Rate 75 09/20/23 11:31 Respiratory Rate 14 09/20/23 11:31 Blood Pressure 111/78 09/20/23 11:31 Pulse Oximetry 99 09/20/23 11:31 Oxygen Delivery Room Air 09/20/23 08:01 MDM - SOB/Dyspnea MDM Narrative Medical decision making narrative: Patient presents to the emergency department with multiple complaints. Reporting pain around his umbilical hernia. Also endorsing some shortness of breath. Patient is afebrile and nontoxic appearing. His vitals are stable. Lungs are clear on exam. CBC and metabolic panel without concerning findings. EKG without concerning changes and baseline troponin is negative. D-dimer is not elevated. Chest x-ray without acute cardiopulmonary abnorma
[2023-09-20 09:31] LABS: D Dimer < 0.27 ug/mL (<0.48)
[2023-09-20] MEDS: SODIUM CHLORIDE 0.9% IV 500 ML 999 ML IV CONT (09:42)
[2023-09-20] MEDS: ONDANSETRON INJ 4 MG/2 ML VIAL IV PUSH (09:43)
[2023-09-20] MEDS: MORPHINE SULFATE (*CRX) 4 MG/ML INJ IV PUSH (09:44)
--- NOTE | 2023-09-20 09:47 | PC.NURSE ---
pt to CT on tele monitor
[2023-09-20 09:50] LABS: Troponin I < 0.012 ng/mL (0.000-0.034)
[2023-09-20 13:05] LABS: Lactic Acid Reflex 1.8 mmol/L (0.7-2.0)
== END 2023-09-20 12:17 | disposition home or self-care (01) ==
PROVIDERS: Emergency Medicine; Emergency Provider Physician Assistant
DX: K42.9 Umbilical hernia without obstruction or gangrene (principal); R06.02 Shortness of breath; J45.909 Unspecified asthma, uncomplicated; E78.5 Hyperlipidemia, unspecified; Z21 Asymptomatic human immunodeficiency virus [HIV] infection status; Z79.899 Other long term (current) drug therapy
CPT/HCPCS: 36415; 71046; 74177; 80053; 83605; 84484; 85025; 85380; 93005; 96361; 96374; 96375; 99284; J2270; J2405; J7040; Q9967

== ENCOUNTER 2024-03-17 11:15 | Emergency (ER) | payer OTHER, SELFPAY ==
--- NOTE | 2024-03-17 11:21 | ED.URI ---
HPI - URI/Sore Throat General Chief Complaint: Upper Respiratory Infection Stated Complaint: fever,cough,chills,change in taste, +COVID home Time Seen by Provider: 03/17/24 11:34 Source: patient, RN notes reviewed and old records reviewed Mode of arrival: ambulatory Limitations: no limitations History of Present Illness HPI Narrative: 44-year-old male presents to the [facility] with complaints of fever, cough, chills, change in taste in reports that he took a COVID test at home which was positive. Related Data Home Medications Medication Instructions Recorded Confirmed bictegravir 50 mg-emtricitabine 1 tablet PO DAILY 01/27/20 03/17/24 200 mg-tenofovir alafenam 25 mg tablet (Biktarvy) Allergies Allergy/AdvReac Type Severity Reaction Status Date / Time banana Allergy Mild MOUTH SORES Verified 03/17/24 11:31 cat dander Allergy Mild Itching Verified 03/17/24 11:31 tomato Allergy Mild MOUTH SORES Verified 03/17/24 11:31 Review of Systems Review of Systems: All systems reviewed & are unremarkable except as noted in HPI and below Constitutional: Constitutional: Reports as per HPI, Reports chills, Reports fatigue and Reports fever(s) Eyes: Eyes: Reports no additional eye complaints ENT: Reports system reviewed and no additional complaints, except as documented Cardiovascular: Cardiovascular: Reports no additional cardiovascular complaints, Denies chest pain and Denies dyspnea Respiratory: Respiratory: Reports as per HPI, Denies chest congestion, Reports cough and Denies dyspnea Gastrointestinal: Gastrointestinal: Reports no additional gastrointestinal complaints, Denies abdominal pain, Denies nausea and Denies vomiting Musculoskeletal: Musculoskeletal: Reports no additional musculoskeletal complaints Integumentary/Breasts: Skin/Breast: Reports system reviewed and no additional complaints, except as docu Neurologic: Reports system reviewed and no additional complaints, except as documented Psychiatric: Psychiatric: Reports no additional psychiatric complaints Allergic/Immunologic: Allergic/Immunologic: Reports no additional allergic/immunologic complaints PMFSH Past Medical History Medical History Anxiety Asthma Depression HIV (human immunodeficiency virus infection) Hyperlipidemia Leg fracture Surgical History Surgical History History of appendectomy History of tonsillectomy Social History Social History Smoking status: Never smoker Alcohol intake: current Substance use type: does not use Gender identity (if verbalized by the patient): Female Comments At the time of my signature, I reviewed and agree with the nursing past medical, surgical, social, and family history. There is no relevant family history pertinent to the patient complaint. Exam Const: General: cooperative, healthy appearing, comfortable, no acute distress, well developed, alert and well nourished Nutritional Appearance: well nourished and obese Orientation/consciousness: patient oriented x3 Limitations: no limitations HENMT: Head: normal to inspection Ears: hearing grossly normal bilaterally and external ears normal Face/Nose/Sinus: Normal external nose present, Normal nares present, Normal nasal mucous membranes and turbinates present, normal facial exam and face symmetric Face and sinus: normal facial exam and face symmetric Throat: posterior oropharynx normal, uvula midline and no uvular edema Eyes: General: appearance normal, both eyes and all related structures Alignment and Position: alignment normal Periorbital: periorbital findings normal Pupils: Equal, round and reactive pupils present EOM: EOMs intact bilaterally Neck: Neck: normal visual inspection, full ROM, no lymphadenopathy and no meningeal signs Chest: Chest palpation & inspection: norm
[2024-03-17 11:32] VITALS: BP 144/98; PULSE 83; RESP 20; TEMP 37.1; O2SAT 97
[2024-03-17 11:33] VITALS: BP 144/98; PULSE 83; RESP 20; TEMP 37.1; O2SAT 97
== END 2024-03-17 11:55 | disposition home or self-care (01) ==
PROVIDERS: Emergency Provider Nurse Practitioner
DX: U07.1 COVID-19 (principal); J45.909 Unspecified asthma, uncomplicated; E78.5 Hyperlipidemia, unspecified; Z21 Asymptomatic human immunodeficiency virus [HIV] infection status
CPT/HCPCS: 87426; 99212; G0463

== ENCOUNTER 2024-07-20 09:45 | Emergency (ER) | payer SELFPAY ==
[2024-07-20 10:05] VITALS: BP 122/84; PULSE 101; RESP 16; TEMP 36.7; O2SAT 98
--- NOTE | 2024-07-20 10:43 | ED_ITS ---
HPI - URI/Sore Throat General Chief Complaint: Upper Respiratory Infection Stated Complaint: Cough Time Seen by Provider: 07/20/24 10:43 Source: patient, RN notes reviewed and old records reviewed Mode of arrival: ambulatory Limitations: no limitations Related Data Home Medications Medication Instructions Recorded Confirmed bictegravir 50 mg-emtricitabine 1 tablet PO DAILY 01/27/20 07/20/24 200 mg-tenofovir alafenam 25 mg tablet (Biktarvy) Allergies Allergy/AdvReac Type Severity Reaction Status Date / Time banana Allergy Mild MOUTH SORES Verified 03/17/24 11:31 cat dander Allergy Mild Itching Verified 03/17/24 11:31 tomato Allergy Mild MOUTH SORES Verified 03/17/24 11:31 Review of Systems Review of Systems: All systems reviewed & are unremarkable except as noted in HPI and below Constitutional: Constitutional: Reports no additional constitutional complaints ENT: Reports system reviewed and no additional complaints, except as documented Cardiovascular: Cardiovascular: Reports no additional cardiovascular complaints Respiratory: Respiratory: Reports no additional respiratory complaints Gastrointestinal: Gastrointestinal: Reports no additional gastrointestinal complaints [facility] Past Medical History Medical History (Updated 07/20/24 @ 10:50 by Jacqueline Pan APRN) Anxiety Asthma Depression HIV (human immunodeficiency virus infection) Hyperlipidemia Leg fracture Surgical History Surgical History History of appendectomy History of tonsillectomy Social History Social History Smoking status: Never smoker Alcohol intake: current Substance use type: does not use Gender identity (if verbalized by the patient): Female Comments At the time of my signature, I reviewed and agree with the nursing past medical, surgical, social, and family history. There is no relevant family history pertinent to the patient complaint. Exam Const: General: cooperative, no acute distress, alert and awake Orientation/consciousness: oriented to person, oriented to place and oriented to time HENMT: Head: normal to inspection Resp: Effort & Inspection: normal respiratory effort and able to speak in com plete sentences Auscultation: clear to auscultation bilaterally, no crackles, no rales, no rhonchi and no wheezes Cardio: Palpation: normal PMI Rate: regular rate Rhythm: regular rhythm Heart sounds: S1 normal heart sound present and S2 normal heart sound present Neuro: General: oriented to person, oriented to place and oriented to time Cranial nerves: Yes CN's II-XII intact bilaterally Psych: Appearance: grossly normal Thought process: Normal thought process present Insight: Good insight present (Psych) Judgement: Good judgement present (Psych) Course Course Level of Care: Express Care Visit Vital Signs Vital signs: Vital Signs Temperature 98.1 F 07/20/24 10:05 Pulse Rate 101 H 07/20/24 10:05 Respiratory Rate 16 07/20/24 10:05 Blood Pressure 122/84 07/20/24 10:05 Pulse Oximetry 98 07/20/24 10:05 Oxygen Delivery Room Air 07/20/24 10:05 Temperature 98.1 F 07/20/24 10:05 Pulse Rate 101 H 07/20/24 10:05 Respiratory Rate 16 07/20/24 10:05 Blood Pressure 122/84 07/20/24 10:05 Pulse Oximetry 98 07/20/24 10:05 Oxygen Delivery Room Air 07/20/24 10:05 Reviewed Discharge Plan Discharge Clinical Impression: Upper respiratory infection Qualifiers: URI type: unspecified viral URI Qualified Code(s): J06.9 - Acute upper respiratory infection, unspecified Patient Disposition: Home, Self-Care Condition: Stable Instructions: Antibiotic Form, Cold Symptoms (ED) Additional Instructions: Continue supportive care measures. Plenty of rest and fluids. Follow-up with primary care provider. Emergency department for new or worse symptoms Patient Language: Citizen Of [place] Prescriptions: No Action Biktarvy 50-200-25 mg Tablet 1 tablet PO DAILY Follow-up/Referrals: [facility] [Primary Care Provider] - 2 Weeks Stand Alone Forms: Work/School Release IP Time of Disposition: 11:14
[2024-07-20 11:29] LABS: EDSTREPNEGPOS1 Negative (Negative)
== END 2024-07-20 11:20 | disposition home or self-care (01) ==
PROVIDERS: Emergency Provider Nurse Practitioner Family
DX: J06.9 Acute upper respiratory infection, unspecified (principal); J45.909 Unspecified asthma, uncomplicated; E78.5 Hyperlipidemia, unspecified; Z21 Asymptomatic human immunodeficiency virus [HIV] infection status
CPT/HCPCS: 87081; 87880; 99213; G0463

== ENCOUNTER 2024-08-19 15:07 | Emergency (ER) | payer MEDICAID, SELFPAY ==
[2024-08-19 15:20] VITALS: BP 138/108; PULSE 98; RESP 18; O2SAT 98
[2024-08-19 15:46] LABS: EDCOVIDSCREEN Negative (Negative)
[2024-08-19 15:47] LABS: EDINFLUASCREEN Negative (Negative); EDINFLUBSCREEN Negative (Negative); EDSTREPNEGPOS1 Negative (Negative)
--- NOTE | 2024-08-19 15:51 | ED.URI ---
HPI - URI/Sore Throat General Chief Complaint: Upper Respiratory Infection Stated Complaint: strep symptoms Time Seen by Provider: 08/19/24 15:51 Source: patient Mode of arrival: ambulatory Limitations: no limitations History of Present Illness HPI Narrative: 44-year-old male presents with complaint nasal congestion, sinus pressure, postnasal drainage and sore throat for 2 days. Afebrile. Patient states he saw white patches in the back of his throat. Concern for strep throat. Denies nausea vomiting. All systems reviewed and negative except as noted above. Related Data Home Medications ?Medication ?Instructions ?Recorded ?Confirmed ?Last Taken ?Type bictegravir 50 mg-emtricitabine 1 tablet PO DAILY 01/27/20 07/20/24 Unknown History 200 mg-tenofovir alafenam 25 mg tablet (Biktarvy) Allergies Allergy/AdvReac Type Severity Reaction Status Date / Time banana Allergy Mild MOUTH SORES Verified 08/19/24 15:12 cat dander Allergy Mild Itching Verified 08/19/24 15:12 tomato Allergy Mild MOUTH SORES Verified 08/19/24 15:12 Review of Systems Review of Systems: CONSTITUTIONAL: Denies fever, chills, or sweats. EYES: Denies visual changes, redness, or discharge. ENT: Reports rhinorrhea, congestion, sore throat. Denies otalgia. CARDIOVASCULAR: Denies chest pain, palpitations, or edema. RESPIRATORY: Denies cough or dyspnea. GASTROINTESTINAL: Denies abdominal pain, nausea, vomiting, or diarrhea. GENITOURINARY: Denies dysuria or hematuria. SKIN: Denies rash or itching. MUSCULOSKELETAL: Denies back pain, joint pain, or myalgia. NEUROLOGIC: Denies headache, numbness, or weakness. PSYCHIATRIC: Denies anxiety or depression. All other systems reviewed are negative, except as documented in HPI. [facility] Past Medical History Medical History (Updated 08/19/24 @ 15:57 by Amira Oseguera NP) HIV (human immunodeficiency virus infection) Anxiety Depression Leg fracture Asthma Hyperlipidemia Surgical History Surgical History History of appendectomy History of tonsillectomy Social History Social History Smoking status: Never smoker Alcohol intake: current Substance use type: does not use Gender identity (if verbalized by the patient): Female Comments At time of signature, agree with nursing past medical, surgical, social and family history. There is no relevant family history pertinent to the presenting complaint. Exam Narrative: GENERAL: This is a well-nourished, well-developed patient, in no apparent distress. HEAD: normocephalic, atraumatic. EYES: PERRL. Sclera clear/white. Vision is grossly intact. EARS: External ears normal, auditory canals clear and without drainage, TMs normal without perforation. Hearing grossly intact. NOSE: External nose normal with Congestion with clear nasal drainage, erythema to bilateral nares THROAT: Mucous membranes moist, mild swelling and erythema without exudates. NECK: Neck supple, non-tender without lymphadenopathy, masses or thyromegaly. CARDIOVASCULAR: Regular rate and rhythm without murmurs, gallops, or rubs. RESPIRATORY: Clear to auscultation. Breath sounds equal bilaterally. No wheezes, rales, or rhonchi. SKIN: warm, Dry, intact with no suspicious lesions or rash, good texture and turgor. NEURO: awake, alert, and oriented to person, place and time. There were no obvious focal neurologic abnormalities. EXTREMITIES: No joint tenderness, effusion, or edema noted. Course Course Level of Care: Express Care Visit Vital Signs Vital signs: Vital Signs Pulse Rate 98 08/19/24 15:20 Respiratory Rate 18 08/19/24 15:20 Blood Pressure 138/108 H 08/19/24 15:20 Pulse Oximetry 98 08/19/24 15:20 Oxygen Delivery Room Air 08/19/24 15:20 Pulse Rate 98 08/19/24 15:20 Respiratory Rate 18 08/19/24 15:20 Blood Pressure 138/108 H 08/19/24 15:20 Pulse Oximetry 98 08/19/24 15:20 Oxygen Delivery Room Air 08/19/24 15:20 reviewed MDM - URI/Sore Throat MDM Narrative Medical decision making narrative: negative strep, COVID and influenza. Strep culture ordered. Will wait for culture Zyrtec prior to treating with patient [id number] medications to treat viral symptoms. Patient is well-appearing. Patient is aware of diagnosis, understands and agrees to treatment plan. Anticipatory guidance given. Patient agrees to follow-up as directed and is aware of reasons to seek care at the emergency department. Portions of this record may have been created with voice recognition software Differential Diagnosis Differential diagnosis: Likely upper respiratory infection, sinusitis, viral infection, influenza and pharyngitis Lab Data Labs: Lab Results 08/19/24 Range/Units 15:20 POC Influenza A Ag Negative (Negative) POC Influenza B Ag Negative (Negative) POC SARS CoV-2 Ag Negative (Negative) POC Grp A Strep Screen Negative (Negative) Discharge Plan Discharge Clinical Impression: Upper respiratory infection, viral Patient Disposition: Home, Self-Care Condition: Stable Instructions: Upper Respiratory Infection (ED) Additional Instructions: your strep, COVID and influenza test were negative today. A strep culture was ordered and results will take 24-48 hours. If your strep culture is positive we will call you at that time and prescribed an antibiotic. Taking [id number] medication to treat her symptoms such as DayQuil NyQuil cold and flu. Take ibuprofen every 6-8 hours as needed for pain and fever. Drink at least 64 oz of water a day. Follow-up with your primary care physician if symptoms are not improving. Patient Language: Icelandic Prescriptions: No Action Biktarvy 50-200-25 mg Tablet 1 tablet PO DAILY Follow-up/Referrals: PHYSICIAN NOT ON STAFF,NONSTAFF [Primary Care Provider] - Time of Disposition: 15:57
== END 2024-08-19 16:00 | disposition home or self-care (01) ==
PROVIDERS: Emergency Provider Nurse Practitioner Family
DX: J06.9 Acute upper respiratory infection, unspecified (principal); B34.9 Viral infection, unspecified; Z21 Asymptomatic human immunodeficiency virus [HIV] infection status; F41.8 Other specified anxiety disorders; J45.909 Unspecified asthma, uncomplicated; E78.5 Hyperlipidemia, unspecified; Z20.822 Contact with and (suspected) exposure to COVID-19
CPT/HCPCS: 87081; 87426; 87804; 87880; 99213; G0463

== ENCOUNTER 2024-08-23 18:18 | Emergency (ER) | payer MEDICAID, SELFPAY ==
[2024-08-23] VITALS (24 sets, daily range): BP systolic 117–183; BP diastolic 72–153; PULSE 93–134; RESP 10–24; TEMP 36.6; O2SAT 94–100
--- NOTE | ~2024-08-23 | CT_ITS ---
CLINICAL INDICATION: 6 she complains. Multilevel COMPARISON: 09/20/2023. TECHNIQUE: Multiple contiguous axial images of the abdomen and pelvis were performed following the ad ministration of with 100 mL Omnipaque-350 intravenous contrast The dose-length product (DLP) was 1879.44 mGy-cm. Automated exposure control and iterative reconstruction technique were employed. FINDINGS/OBSERVATIONS: Visualized lower thorax: The bilateral lung bases are clear. The heart is of normal size, without pericardial effusion. Small hiatal hernia is present. Liver: The liver enhances homogeneously and is borderline enlarged measuring 19 cm in longitudinal dimension . Gallbladder and biliary system: The gallbladder is only minimally distended, and otherwise unremarkable. Pancreas: The pancreas enhances homogeneously without ductal dilatation. Spleen: The spleen enhances homogeneously and is not enlarged measuring 8 cm in longitudinal dimension. Kidneys: The bilateral kidneys enhance symmetrically without hydronephrosis or renal calculi. Adrenal glands: Unremarkable. Gastrointestinal tract: Trace fecal stasis. Appendix: Surgically absent. Vasculature: Unremarkable. No aneurysmal dilatation or significant stenosis. Lymph nodes: No pathologically enlarged or morphologically suspicious lymph nodes within the retroperitoneum or at the root of the mesentery. Pelvic structures: The bladder is minimally distended, and otherwise unremarkable. The prostate gland is not enlarged. Body wall and musculoskeletal: Large teardrop shaped supraumbilical fat and likely omentum containing hernia. Fat-containing right inguinal hernia. No significant degenerative disease within the lower thoracic or lumbosacral spine. IMPRESSION: Large supraumbilical fat and likely omental containing hernia. Borderline hepatomegaly No additional pathology within the abdomen or pelvis, as detailed above. Reviewed, dictated and finalized at location A. S FINISHER
[2024-08-23 19:22] LABS: Basophils Absolute Auto 0.1 K/mm3 (0.0-0.1); Basophils Percent Auto 0.7 % (0.2-1.2); Eosinophils Absolute Auto 0.6 K/mm3 (0-0.3); Eosinophils Percent Auto 5.8 % (0-4.4); Immature Granulocyte Absolute 0.04 K/mm3 (0.00-0.031); Immature Granulocyte Percent A 0.4 % (0-0.5); Lymphocytes Absolute Auto 2.69 K/mm3 (0.9-3.2); Lymphocytes Percent Auto 25.6 % (18.3-44.2); Mean Corpuscular HGB Conc 34.9 g/dl (32-36); Mean Corpuscular Hemoglobin 33.3 pg (26-34); Mean Corpuscular Volume 95.6 fl (80-100); Mean Platelet Volume 12.8 fl (7.4-10.4); Monocytes Percent Auto 9.2 % (2.6-8.5); Neutrophils Absolute Auto 6.1 K/mm3 (1.3-6.7); Neutrophils Percent Auto 58.3 % (45.5-73.1); Platelet Count Result 149 k/mm3 (150-375); Red Cell Distribution Width 12.8 % (11.5-14.5); White Blood Count 10.5 K/mm3 (4.5-10.0)
[2024-08-23 19:39] LABS: Alanine Aminotransferase 114 U/L (6-50); Albumin Level 4.3 g/dL (3.5-5.1); Alkaline Phosphatase 82 U/L (38-126); Anion Gap 13 mmol/L (4-12); Aspartate Amino Transferase 68 U/L (17-59); Bilirubin,Total 0.6 mg/dL (0.2-1.3); Blood Urea Nitrogen 17 mg/dL (9-20); Calcium 8.9 mg/dL (8.4-10.2); Carbon Dioxide 18 mmol/L (22-30); Chloride 107 mmol/L (98-107); Estimated CRCL calculation 91 ml/min; Estimated Glomerular Filt Rate > 60; Glucose 120 mg/dL (65-110); Lipase 94 U/L (23-300); Magnesium 2.1 mg/dL (1.6-2.3); Sodium 138 mmol/L (137-145)
[2024-08-23 19:40] LABS: Lactic Acid Reflex 2.1 mmol/L (0.7-2.0)
--- NOTE | 2024-08-23 19:46 | ED_ITS ---
HPI - Abdominal Pain General Chief Complaint: Abdominal Pain Stated Complaint: abdominal pain Time Seen by Provider: 08/23/24 19:04 History of Present Illness HPI narrative: Patient is a 44-year-old male who presents emergency department this evening complaining of a periumbilical abdominal pain. Patient admits that he does have a ventral abdominal wall hernia that was repaired approximately 3 years ago by 1 of our surgeons. Patient states that for the most part it only bothers him a sometimes when he is doing physical activities such as working out in the gym. Today he was lifting a trash bag and noticed an increase in the size of his hernia so he decided come to the emergency department for further evaluation. States that if you press on his hernia does cause him some pain but otherwise pain is tolerable. Denies any additional symptoms including any nausea, vomiting, constipation or diarrhea. No additional symptoms or concerns at this time. Related Data Home Medications ?Medication ?Instructions ?Recorded ?Confirmed ?Last Taken ?Type bictegravir 50 mg-emtricitabine 1 tablet PO DAILY 01/27/20 07/20/24 Unknown History 200 mg-tenofovir alafenam 25 mg tablet (Biktarvy) Allergies Allergy/AdvReac Type Severity Reaction Status Date / Time banana Allergy Mild MOUTH SORES Verified 08/19/24 15:12 cat dander Allergy Mild Itching Verified 08/19/24 15:12 tomato Allergy Mild MOUTH SORES Verified 08/19/24 15:12 Review of Systems 2 Review of Systems: All systems are reviewed and are negative unless stated otherwise in the HPI. [facility] Past Medical History Medical History HIV (human immunodeficiency virus infection) Anxiety Depression Leg fracture Asthma Hyperlipidemia Surgical History Surgical History History of appendectomy History of tonsillectomy Social History Social History Smoking status: Never smoker Alcohol intake: current Substance use type: does not use Gender identity (if verbalized by the patient): Female Exam 2 Narrative: General: Alert, awake, afebrile, in no acute distress. HEENT: PERRL, no rhinorrhea, no post nasal drip, oropharynx clear. Neck: Trachea midline, no JVD, no lymphadenopathy. Cardiovascular: Regular rate and rhythm, no murmurs, rubs or gallops, no peripheral edema. Respiratory: Clear to auscultation bilaterally, no tachypnea, no wheezing, no rhonchi, no rubs, no respiratory distress. Abdomen: Soft, mild tenderness palpation over the supraumbilical region, no overlying skin changes, nondistended, no rebound, no guarding, no peritoneal signs. Musculoskeletal: No joint swelling or deformity, normal muscle tone. Skin: No rashes or petechia, no signs of infection. Psychiatric: Alert and oriented, normal behavior and judgment for situation. Neurological: Alert and oriented to person, place, and time. Follows all commands. No focal deficits, speech is clear and fluent. Course Vital Signs Vital signs: Vital Signs Temperature 97.9 F 08/23/24 18:21 Pulse Rate 134 H 08/23/24 18:21 Respiratory Rate 24 H 08/23/24 18:21 Blood Pressure 117/89 08/23/24 18:21 Pulse Oximetry 96 08/23/24 18:21 Oxygen Delivery Room Air 08/23/24 18:21 Temperature 97.9 F 08/23/24 21:44 Pulse Rate 114 H 08/23/24 21:44 Respiratory Rate 21 H 08/23/24 21:44 Blood Pressure 131/75 08/23/24 21:44 Pulse Oximetry 98 08/23/24 21:44 Oxygen Delivery Room Air 08/23/24 18:21 MDM - Abdominal Pain MDM Narrative Medical decision making narrative: The patient was evaluated by myself in the emergency department. History is obtained from patient who is an independent historian and physical exam was performed. External medical records were reviewed at this time. IV was established and pertinent tests were ordered. Patient was administered 1 L IV fluid bolus with normal saline, 4 mg IV Zofran for nausea 4 mg of IV morphine for pain. Laboratory results obtained revealing mild transaminitis with an AST of 68 and an ALT of 114 otherwise no acute process. Imaging studies obtained included CT abdomen and pelvis with IV contrast which was independently interpreted by me revealing large teardrop shaped supraumbilical fat and likely omentum containing hernia, which is pending final radiology interpretation. When compared to CT scan from September of last year revealed similar. Differential diagnosis considerations include incarcerated/strangulated, bowel obstruction, pancreatitis. Comorbidities impacting this visit include history of abdominal wall hernia status post repair. I have evaluated and discussed social determinants of health with the patient that could potentially impact subsequent diagnosis and treatment plans. On repeat assessment of the patient, reevaluation revealed that the patient is doing well and is in no acute distress. Patient symptoms have improved since he arrived to our emergency department. Repeat vital signs were all reviewed and noted to be stable. Differential diagnosis and treatment plan were discussed with the patient at bedside. Patient agrees with discussion and after shared medical decision making agrees with discharge. All questions were answered to the patient's satisfaction. Patient will follow up with general surgery in 3-5 days. Patient was provided with strict return precautions and instructed to return to the emergency department if any new or worsening symptoms develop. The patient was discharged in stable condition. Lab Data 08/23/24 19:14 08/23/24 19:14 Labs: Lab Results 08/23/24 Range/Units 19:14 WBC 10.5 H (4.5-10.0) K/mm3 RBC 4.50 L (4.6-6.20) M/mm3 Hgb 15.0 (14.0-18.0) g/dL Hct 43.0 (42.0-52.0) % MCV 95.6 (80-100) fl MCH 33.3 (26-34) pg MCHC 34.9 (32-36) g/dl RDW 12.8 (11.5-14.5) % Plt Count 149 L (150-375) k/mm3 MPV 12.8 H (7.4-10.4) fl Immature Gran % (Auto) 0.4 (0-0.5) % Neut % (Auto) 58.3 (45.5-73.1) % Lymph % (Auto) 25.6 (18.3-44.2) % [place] % (Auto) 9.2 H (2.6-8.5) % Eos % (Auto) 5.8 H (0-4.4) % Baso % (Auto) 0.7 (0.2-1.2) % Lymph # (Auto) 2.69 (0.9-3.2) K/mm3 [place] # (Auto) 1.0 H (0.1-0.6) K/mm3 Eos # (Auto) 0.6 H (0-0.3) K/mm3 Baso # (Auto) 0.1 (0.0-0.1) K/mm3 Abs Immat Gran (auto) 0.04 H (0.00-0.031) K/mm3 Absolute Neuts (auto) 6.1 (1.3-6.7) K/mm3 Absolute Nucleated RBC 0.000 (0.0-0.012) K/mm3 Nucleated RBC % 0.0 (0.0-0.2) % Sodium 138 (137-145) mmol/L Potassium 4.0 (3.4-5.0) mmol/L Chloride 107 (98-107) mmol/L Carbon Dioxide 18 L (22-30) mmol/L Anion Gap 13 H (4-12) mmol/L BUN 17 (9-20) mg/dL Creatinine 1.30 (0.7-1.3) mg/dL Estim Creat Clear Calc 91 ml/min Estimated GFR > 60 (59 - ) Glucose 120 H (65-110) mg/dL Lactic Acid 2.1 H (0.7-2.0) mmol/L Calcium 8.9 (8.4-10.2) mg/dL Magnesium 2.1 (1.6-2.3) mg/dL Total Bilirubin 0.6 (0.2-1.3) mg/dL AST 68 H (17-59) U/L ALT 114 H (6-50) U/L Alkaline Phosphatase 82 (38-126) U/L Total Protein 7.0 (6.3-8.2) g/dL Albumin 4.3 (3.5-5.1) g/dL Lipase 94 (23-300) U/L Imaging Data Radiologist's impression: ITS Impressions Abdomen/Pelvis CT 08/23/24 20:19 IMPRESSION: Large supraumbilical fat and likely omental containing hernia. Borderline hepatomegaly No additional pathology within the abdomen or pelvis, as detailed above. Discharge Plan Discharge Clinical Impression: Abdominal wall hernia, Transaminitis Instructions: Antibiotic Form, Abdominal Pain (ED), Ventral Hernia (ED) Additional Instructions: Please follow-up with your general surgeon as instructed within the next 3-5 days regarding your supraumbilical hernia. Return to the emergency department if any new or worsening symptoms develop. Patient Language: Sami Prescriptions: No Action Biktarvy 50-200-25 mg Tablet 1 tablet PO DAILY Follow-up/Referrals: Parseh Schwab MD [Physician] - 3 Days PHYSICIAN NOT ON STAFF,NONSTAFF [Primary Care Provider] - Time of Disposition: 21:09
[2024-08-23] MEDS: MORPHINE SULFATE (*CRX) 4 MG/ML INJ IV PUSH (20:28)
[2024-08-23] MEDS: ONDANSETRON INJ 4 MG/2 ML VIAL IV PUSH (20:28)
[2024-08-23] MEDS: SODIUM CHLORIDE 0.9% IV 1,000 ML 999 ML IV CONT (20:28)
[2024-08-23 22:20] LABS: Reflex Lactic Acid Yes or No Add Lactic
== END 2024-08-23 21:45 | disposition home or self-care (01) ==
PROVIDERS: Emergency Provider Emergency Medicine
DX: K43.9 Ventral hernia without obstruction or gangrene (principal); R74.01 Elevation of levels of liver transaminase levels; Z21 Asymptomatic human immunodeficiency virus [HIV] infection status; Z79.899 Other long term (current) drug therapy
CPT/HCPCS: 36415; 74177; 80053; 83605; 83690; 83735; 85025; 96361; 96374; 96375; 99284; J2270; J2405; J7030; Q9967

== ENCOUNTER 2025-03-13 10:49 | Emergency (ER) | payer BC, SELFPAY ==
--- NOTE | ~2025-03-13 | XR_ITS ---
EXAMINATION: XR chest 2V DATE: 03/13/2025 12:09 INDICATION: Shortness of breath, cough and fever TECHNIQUE: PA and lateral views of the chest were obtained. COMPARISON: Chest radiograph dated 09/30/2023 FINDINGS: The lungs are clear with no focal airspace opacities, pulmonary edema, pleural effusion or pneumothor ax. Heart size is normal. Visualized bones and soft tissues are unremarkable. IMPRESSION: 1. No acute cardiopulmonary disease. Reviewed, dictated and finalized at location A.
[2025-03-13 11:03] VITALS: BP 130/79; PULSE 101; RESP 18; TEMP 36.5; O2SAT 98
--- NOTE | 2025-03-13 11:52 | ED_ITS ---
HPI - General Adult General Chief complaint: Upper Respiratory Infection Stated complaint: Sore Throat Time Seen by Provider: 03/13/25 11:53 Source: patient Mode of arrival: ambulatory Limitations: no limitations History of Present Illness HPI narrative: 45-year-old male patient presents to the [facility] with complaints of sore throat for the past 4 days along with some diarrhea and a cough. Patient does have history of HIV and is being treated but states his viral load has been undetectable since his diagnosis. Patient states he was running a fever up until Saturday but no fever for the past 3 days. Patient states he has been taking some [id number] Robitussin for his symptoms. Patient does have a history of asthma and is out of his albuterol inhaler. Related Data Home Medications ?Medication ?Instructions ?Recorded ?Confirmed ?Last Taken ?Type bictegravir 50 mg-emtricitabine 1 tablet PO DAILY 01/27/20 09/08/24 Unknown Hi story 200 mg-tenofovir alafenam 25 mg tablet (Biktarvy) Allergies Allergy/AdvReac Type Severity Reaction Status Date / Time banana Allergy Mild MOUTH SORES Verified 03/13/25 10:59 cat dander Allergy Mild Itching Verified 03/13/25 10:59 tomato Allergy Mild MOUTH SORES Verified 03/13/25 10:59 Review of Systems Review of Systems: CONSTITUTIONAL: Positive fever that has since resolved, denies chills, or sweats. EYES: Denies visual changes, redness, or discharge. ENT: Positive rhinorrhea, congestion, sore throat, denies otalgia. CARDIOVASCULAR: Denies chest pain, palpitations, or edema. RESPIRATORY: Positive cough with mild and intermittent dyspnea. GASTROINTESTINAL: Denies abdominal pain, nausea, vomiting, positive diarrhea. GENITOURINARY: Denies dysuria or hematuria. SKIN: Denies rash or itching. MUSCULOSKELETAL: Denies back pain, joint pain, or myalgia. NEUROLOGIC: Denies headache, numbness, or weakness. PSYCHIATRIC: Denies anxiety or depression. [facility] Past Medical History Medical History (Updated 03/13/25 @ 12:37 by YULI Gerber) HIV (human immunodeficiency virus infection) Anxiety Depression Leg fracture Asthma Hyperlipidemia Surgical History Surgical History (Updated 09/08/24 @ 14:11 by Joan Alexandra MA) H/O ventral hernia repair 08/24/24 robotic assisted repair of recurrent, incarcerated ventral incisional hernia with total defects measuring [address] Lara History of appendectomy History of tonsillectomy Social History Social History Smoking status: Never smoker Alcohol intake: current Drinks per week: 3 Substance use: never Substance use type: does not use Do You Feel Safe in your Home?: Yes Lack of Transportation: No Lack of Food: Never True Current Housing: I Have Housing Concerned About Future Housing: No Difficulty Paying Gas/Electric Bills: No Difficulty Paying for Meds: No Currently Unemployed: No Education: High School Diploma/GED Difficulty w/ Childcare or Family Care: No Living arrangements: with family Gender identity (if verbalized by the patient): Female Spiritual care concerns: Yes Exam Narrative: GENERAL: Well-appearing, well-nourished, and in no acute distress. HEAD: Normocephalic, atraumatic. EYES: PERRLA and EOMI. ENT: Nares clear, no rhinorrhea or epistaxis. Mucous membranes moist. Posterior pharynx with no erythema, tonsillar enlargement, exudates or lesions present. Bilateral TMs are clear no erythema or foreign bodies the canal. NECK: Supple. No lymphadenopathy CHEST: Clear to auscultation. No respiratory distress. HEART: Regular rate and rhythm. No murmur heard. Normal peripheral pulses. ABDOMEN: Soft, nontender, nondistended, normal active bowel sounds. EXTREMITIES: Normal range of motion. No edema. SKIN: Warm, dry, no rash. NEURO: No focal deficits. Alert and oriented x3. Course Course Level of Care: Express Care Visit Vital Signs Vital signs: Vital Signs Temperature 36.5 C 03/13/25 11:03 Pulse Rate 101 H 03/13/25 11:03 Respiratory Rate 18 03/13/25 11:03 Blood Pressure 130/79 03/13/25 11:03 Pulse Oximetry 98 03/13/25 11:03 Oxygen Delivery Room Air 03/13/25 11:03 Temperature 36.5 C 03/13/25 11:03 Pulse Rate 101 H 03/13/25 11:03 Respiratory Rate 18 03/13/25 11:03 Blood Pressure 130/79 03/13/25 11:03 Pulse Oximetry 98 03/13/25 11:03 Oxygen Delivery Room Air 03/13/25 11:03 Vital signs reviewed. The patient has been informed that they may have pre-hypertension or H ypertension based on a BP reading in the department. I recommend that the patient call the primary care provider listed on their discharge instructions or a physician of their choice this week to arrange follow up for further evaluation of possible pre-hypertension or Hypertension Medical Decision Making MDM Narrative Medical decision making narrative: Discussed with patient that his point of care testing for influenza, COVID and strep have all come back negative. His chest x-ray is negative for any pneumonia. Discussed with patient this is most likely a virus and we will discharge him home with an albuterol inhaler, oral steroids, and Tessalon Perles for the cough. Discussed with him that a lot of times many viruses can exacerbate asthma symptoms. Discussed with patient if he continues to worsen or the fever comes back he needs to either go to the ER see his primary doctor for further evaluation. Patient verbalized understanding denies any other questions or concerns at this time. Differential Diagnosis Differential Diagnosis: Differential diagnosis: Allergic rhinitis, chronic sinusitis, tonsillitis, acute sinusitis, infectious mononucleosis, seasonal influenza, pertussis, diphtheria, meningococcal disease, viral syndrome, viral bronchitis, RSV, COVID- 19 Vital Signs Vital Signs: Vital Signs Temperature 36.5 C 03/13/25 11:03 Pulse Rate 101 H 03/13/25 11:03 Respiratory Rate 18 03/13/25 11:03 Blood Pressure 130/79 03/13/25 11:03 Pulse Oximetry 98 03/13/25 11:03 Oxygen Delivery Room Air 03/13/25 11:03 Temperature 36.5 C 03/13/25 11:03 Pulse Rate 101 H 03/13/25 11:03 Respiratory Rate 18 03/13/25 11:03 Blood Pressure 130/79 03/13/25 11:03 Pulse Oximetry 98 03/13/25 11:03 Oxygen Delivery Room Air 03/13/25 11:03 Lab Data Labs: Lab Results 03/13/25 Range/Units 11:56 POC Influenza A Ag Negative (Negative) POC Influenza B Ag Negative (Negative) POC SARS CoV-2 Ag Negative (Negative) POC Grp A Strep Screen Negative (Negative) Imaging Data Radiologist's impression: [facility] [address] [place] [address] XRay Report Signed Patient: Tj Rosario : 1980 MR#: [id number] Age: 45 Acct:[id number] Loc: [facility] ADM Date: 03/13/25Attending Dr: Ordering Physician: Va Ponce SHIPPING AND RECEIVING CLERK Date of Service: 03/13/25 Procedure(s): XR chest 2V Accession Number(s): [id number] cc: TDP DISPLAYS ANALYST PHYSICIAN; Va Ponce SHIPPING AND RECEIVING CLERK~ EXAMINATION: XR chest 2V DATE: 03/13/2025 12:09 INDICATION: Shortness of breath, cough and fever TECHNIQUE: PA and lateral views of the chest were obtained. COMPARISON: Chest radiograph dated 09/30/2023 FINDINGS: The lungs are clear with no focal airspace opacities, pulmonary edema, pleural effusion or pneumothorax. Heart size is normal. Visualized bones and soft tissues are unremarkable. IMPRESSION: 1. No acute cardiopulmonary disease. Reviewed, dictated and finalized at location A. Please be advised this is a medical document. It is intended for [id number] communication. It is written in medical language and may contain unfamiliar abbreviations or verbiage. Medical documents are intended to carry relevant information, facts as evident, and the clinical opinion of the practitioner at the time of the encounter. This report may have been done utilizing a voice recognition system. Attempts have been made to correct errors. However, there may be uncorrected grammatical, spelling, and recognition errors present. The file time of this note does not necessarily represent the time of service. Dictated By: Morales Heart MD 03/13/25 1222 Signed By: <Electronically signed by Morales Heart MD in OV> Critical Care Time Critical Care Time Critical Care Time: No Discharge Plan Discharge Clinical Impression: Viral URI with cough Patient Disposition: Home Condition: Stable Instructions: Antibiotic Form, Viral Syndrome (ED) Additional Instructions: Viral illness may last between 7-12days; antibiotic is NOT recommended at this time. Recommend antihistamine such as Benadryl at night time and Claritin/Zyrtec/Bernie during the day Cough syrup may cause drowsiness; avoid driving or take it at night time. Use inhaler as needed for cough, wheezing, shortness of breath or chest tightness. Also, recommend symptomatic treatment includes: rest, fluids, and increase humidity of the air at home. Recommend Acetaminophen or nonsteroidal anti-inflammatory agents (NSAIDs) as directed in the bottle to reduce fever and/pain/headache. Avoid smoking/second-hand smoke. Limit visits to areas with large crowds. Please schedule a follow-up visit with your personal physician for further evaluation and treatment within 3-5days. Including recheck and discussion of your blood pressure. If your symptoms persist, change or worsen significantly before you can contact your personal physician then please, without delay, go to the emergency department for further evaluation. Patient Language: Estonian Prescriptions: New benzonatate 200 mg capsule 200 mg PO TID PRN (Reason: cough) 10 Days Qty: 30 0RF albuterol sulfate [Ventolin HFA] 90 mcg/actuation HFA aerosol inhaler 2 puff INHALATION .Q4 hours PRN (Reason: cough) Qty: 18 0RF methylprednisolone 4 mg tablets,dose pack See Rx Instructions PO .COMPLEX Qty: 21 0RF Rx Instructions: for 6 days No Action Biktarvy 50-200-25 mg Tablet 1 tablet PO DAILY Follow-up/Referrals: PHYSICIAN,TDP DISPLAYS ANALYST [Primary Care Provider] - Stand Alone Forms: Work/School Release IP Time of Disposition: 12:38
[2025-03-13 11:58] LABS: EDCOVIDSCREEN Negative (Negative); EDINFLUASCREEN Negative (Negative); EDINFLUBSCREEN Negative (Negative); EDSTREPNEGPOS1 Negative (Negative)
== END 2025-03-13 12:45 | disposition home or self-care (01) ==
PROVIDERS: Emergency Provider Nurse Practitioner Family
DX: J06.9 Acute upper respiratory infection, unspecified (principal); R05.9 Cough, unspecified; Z20.822 Contact with and (suspected) exposure to COVID-19; Z21 Asymptomatic human immunodeficiency virus [HIV] infection status; J45.909 Unspecified asthma, uncomplicated; E78.5 Hyperlipidemia, unspecified
CPT/HCPCS: 71046; 87081; 87426; 87804; 87880; 99213; G0463

== ENCOUNTER 2025-03-22 13:22 | Emergency (ER) | payer BC, SELFPAY ==
--- NOTE | ~2025-03-22 | CT_ITS ---
CLINICAL INDICATION: Right upper quadrant pain COMPARISON: 08/24/2024. TECHNIQUE: Multiple contiguous axial images of the abdomen and pelvis were performed following the ad ministration of with 100 mL Omnipaque-350 intravenous contrast The dose-length product (DLP) was 1560.88 mGy-cm. Automated exposure control and iterative reconstruction technique were employed. FINDINGS/OBSERVATIONS: Visualized lower thorax: The bilateral lung bases are clear. The heart is of normal size, without pericardial effusion. Small hiatal hernia is present. Liver: The liver demonstrates homogeneously decreased enhancement and is borderline enlarged measuring 19cm in longitudinal dimension. Gallbladder and biliary system: The gallbladder is only minimally distended, and otherwise unremarkable. Pancreas: The pancreas enhances homogeneously without ductal dilatation. Spleen: The spleen enhances homogeneously and is not enlarged. Kidneys: 2 mm nonobstructing calculus within the lower pole of the right kidney, an interval change f rom prior The remainder of the bilateral kidneys otherwise enhance symmetrically without hydronephrosis or lucy l calculi. Adrenal glands: Unremarkable. Gastrointestinal tract: Fecal stasis within the cecum. Remaining bowel loops are unremarkable. Appendix: Staple line along the posterior cecum suggesting prior appendectomy. Vasculature: Unremarkable. Lymph nodes: No pathologically enlarged or morphologically suspicious lymph nodes within the retroperitoneum or at the root of the mesentery. Pelvic structures: The bladder is distended, and otherwise unremarkable. The prostate gland is not enlarged. Body wall and musculoskeletal: Post umbilical hernia repair. Fat-containing right inguinal hernia. No significant degenerative disease within the lower thoracic or lumbosacral spine. IMPRESSION: No acute findings within the lower chest, abdomen or pelvis, as detailed above. Reviewed, dictated and finalized at location A.
--- NOTE | ~2025-03-22 | US_ITS ---
EXAMINATION: US abdomen limited DATE: 03/22/2025 16:57 INDICATION: Right upper quadrant abdominal pain TECHNIQUE: Multiple grayscale and Doppler ultrasound images of the abdomen were obtained. COMPARISON: None FINDINGS: Majority the pancreas is obscured. The visualized portion of the pancreatic body appears unremarkable . Liver has normal contour, with a smooth surface. There is increased parenchymal echogenicity and co arsened echotexture consistent with diffuse hepatic steatosis. No liver lesion identified. No intrah epatic biliary duct dilation suspected. Portal venous flow was seen in the hepatopetal, normal direct ion and has normal Doppler waveform. The gallbladder is normal in appearance without wall thickening but incompletely distended. There is no cholelithiasis. The common bile duct measures 3 mm, which is normal. Sonographic Mendosa sign was reported as positive by the burglar alarm superintendent.Visual is portions of the right kidney demonstrates normal contour and axis tube with no hydronephrosis. IMPRESSION: 1. Diffuse hepatic steatosis. 2. Positive sonographic Mendosa sign but without cholelithiasis to more specifically suggest acute cho lecystitis. The normal nondilated appearance of the gallbladder with no pericholecystic inflammatory stranding on the prior CT further decreases suspicion for acute cholecystitis. If there is continued clinical concern for acute cholecystitis could consider HIDA scan for further evaluation. Reviewed, dictated and finalized at location A. IMPRESSION: 1. Diffuse hepatic steatosis. 2. Positive sonographic Mendosa sign but without cholelithiasis to more specific ally suggest acute cholecystitis. The normal nondilated appearance of the gallb ladder with no pericholecystic inflammatory stranding on the prior CT further d ecreases suspicion for acute cholecystitis. If there is continued clinical conc edie for acute cholecystitis could consider HIDA scan for further evaluation.
[2025-03-22 13:34] VITALS: BP 119/86; PULSE 116; RESP 18; TEMP 36.3; O2SAT 98
--- NOTE | 2025-03-22 13:53 | ECG_ITS ---
Test Date: 2025-03-22 14:40:25 Measurements Intervals [place] Rate: 98 P: 53 OK: 165 QRS: 15 QRSD: 93 T: 46 QT: 334 QTc: 428 Interpretive Statements SINUS RHYTHM WITH OCCASIONAL VENTRICULAR PREMATURE COMPLEXES INCOMPLETE RIGHT BUNDLE BRANCH BLOCK BASELINE ARTIFACT- I, III, AVR, AVL, AVF BORDERLINE ECG No previous ECG available for comparison Electronically Signed On 03-22-2025 14:48:26 CDT by Collin Mcgraw D.O.
--- NOTE | 2025-03-22 13:54 | ED_ITS ---
HPI - Abdominal Pain General Chief Complaint: Abdominal Pain Stated Complaint: right sided abd pain Time Seen by Provider: 03/22/25 13:50 History of Present Illness HPI narrative: Patient is a 45 year old male who presents to the ER with a 2 week history of abdominal pain. He reports approximately 2 weeks ago he had a ?bad cough. Patient reports he was taking out the garbage when he felt a tearing sensation in his right upper quadrant. He reports the pain has progressively become worse. Patient reports he has a history of a left upper quadrant hernia and undetectable HIV. He denies any urinary symptoms, chest pain, or shortness of breath. Patient reports he had a fever a couple of weeks ago but it has since subsided. Patient also endorses some intermittent back pain. Related Data Home Medications ?Medication ?Instructions ?Recorded ?Confirmed ?Last Taken ?Type bictegravir 50 mg-emtricitabine 1 tablet PO DAILY 01/27/20 09/08/24 Unknown History 200 mg-tenofovir alafenam 25 mg tablet (Biktarvy) Allergies Allergy/AdvReac Type Severity Reaction Status Date / Time banana Allergy Mild MOUTH SORES Verified 03/22/25 13:38 cat dander Allergy Mild Itching Verified 03/22/25 13:38 tomato Allergy Mild MOUTH SORES Verified 03/22/25 13:38 Review of Systems 2 Review of Systems: All systems reviewed & are unremarkable except as noted in HPI and below PMFSH Past Medical History Medical History HIV (human immunodeficiency virus infection) Anxiety Depression Leg fracture Asthma Hyperlipidemia Surgical History Surgical History H/O ventral hernia repair 08/24/24 robotic assisted repair of recurrent, incarcerated ventral incisional hernia with total defects measuring [address] Lara History of appendectomy History of tonsillectomy Social History Social History Smoking status: Never smoker Alcohol intake: current Drinks per week: 3 Substance use: never Substance use type: does not use Do You Feel Safe in your Home?: Yes Lack of Transportation: No Lack of Food: Never True Current Housing: I Have Housing Concerned About Future Housing: No Difficulty Paying Gas/Electric Bills: No Difficulty Paying for Meds: No Currently Unemployed: No Education: High School Diploma/GED Difficulty w/ Childcare or Family Care: No Living arrangements: with family Gender identity (if verbalized by the patient): Female Spiritual care concerns: Yes Exam 2 Narrative: GENERAL: Well appearing, obese, non-toxic, in no acute distress. HEAD: Normocephalic, atraumatic. NECK: Supple. No adenopathy, no masses. RESPIRATORY: Airway patent, respirations nonlabored. Clear to auscultation bilaterally, no rales, rhonchi, wheezing. CARDIOVASCULAR: Regular rate and rhythm without murmurs, rubs, or gallops. Peripheral pulses 2+ and equal bilaterally. ABDOMINAL: Soft, tender right upper quadrant, + distended. Normoactive BS. MUSCULOSKELETAL: Moves all extremities. Strength/ROM intact without gross deformities. SKIN: Warm, dry, normal color. No rashes. NEURO: A&O X3. Speech clear. Cranial nerves II-XII intact. No ataxic movements. PSYCHIATRIC: Appropriate mood and affect. Normal interaction. Course Vital Signs Vital signs: Vital Signs Temperature 36.3 C L 03/22/25 13:34 Pulse Rate 116 H 03/22/25 13:34 Respiratory Rate 18 03/22/25 13:34 Blood Pressure 119/86 03/22/25 13:34 Pulse Oximetry 98 03/22/25 13:34 Oxygen Delivery Room Air 03/22/25 13:34 Temperature 36.3 C L 03/22/25 13:34 Pulse Rate 88 03/22/25 16:54 Respiratory Rate 16 03/22/25 16:54 Blood Pressure 150/95 H 03/22/25 16:54 Pulse Oximetry 97 03/22/25 16:54 Oxygen Delivery Room Air 03/22/25 13:34 MDM - Abdominal Pain MDM Narrative Medical decision making narrative: Patient is a 45 year old male who presents to the ER with a 2 week history of abdominal pain. He reports approximately 2 weeks ago he had a ?bad cough. Patient reports he was taking out the garbage when he felt a tearing sensation in his right upper quadrant. He reports the pain has progressively become worse. Patient reports he has a history of a left upper quadrant hernia and undetectable HIV. He denies any urinary symptoms, chest pain, or shortness of breath. Patient reports he had a fever a couple of weeks ago but it has since subsided. Patient also endorses some intermittent back pain. Labs Ordered: CBC, CMP, lipase, UA, lactic acid Imaging Ordered: CT abdomen pelvis, right upper quadrant ultrasound Medications Ordered: 1 L normal saline IV bolus, morphine 4 mg IV, Bentyl p.o. Results: Pt's CT scan indicates No acute findings within the lower chest, abdomen or pelvis, as detailed above. Pt's US indicates 1. Diffuse hepatic steatosis. 2. Positive sonographic Mendosa sign but without cholelithiasis to more specifically suggest acute cholecystitis. The normal nondilated appearance of the gallbladder with no pericholecystic inflammatory stranding on the prior CT further decreases suspicion for acute cholecystitis. If there is continued clinical concern for acute cholecystitis could consider HIDA scan for further evaluation. Diagnosis: Biliary colic, gastroenteritis Patient Education/Shared MDM: Results of lab work and imaging shared with patient. He endorses improvement of symptoms following medication administration. Upon further discussion, patient reports he drank a large amount of alcohol several days this past weekend, along with some greasy/spicy foods. Patient strongly advised to maintain hydration status upon discharge and follow-up with his PCP as soon as possible. They will be discharged home with a prescription for Bentyl and Zofran. Strict return precautions provided. Patient verbalized understanding and is in agreement with plan. Vital signs stable at time of discharge. All questions answered. Differential Diagnosis Differential diagnosis: Likely abdominal pain, constipation, diverticulitis, gastroenteritis, pancreatitis and small bowel obstruction Lab Data Attestation: I reviewed the patient's lab results. 03/22/25 15:02 03/22/25 15:02 Labs: Lab Results 03/22/25 03/22/25 Range/Units 15:02 15:03 WBC 10.7 H (4.5-10.0) K/mm3 RBC 4.46 L (4.6-6.20) M/mm3 Hgb 14.7 (14.0-18.0) g/dL Hct 43.8 (42.0-52.0) % MCV 98.2 (80-100) fl MCH 33.0 (26-34) pg MCHC 33.6 (32-36) g/dl RDW 12.7 (11.5-14.5) % Plt Count 142 L (150-375) k/mm3 MPV 12.5 H (7.4-10.4) fl Immature Gran % (Auto) 0.3 (0-0.5) % Neut % (Auto) 60.8 (45.5-73.1) % Lymph % (Auto) 23.8 (18.3-44.2) % [place] % (Auto) 7.8 (2.6-8.5) % Eos % (Auto) 6.4 H (0-4.4) % Baso % (Auto) 0.9 (0.2-1.2) % Lymph # (Auto) 2.54 (0.9-3.2) K/mm3 [place] # (Auto) 0.8 H (0.1-0.6) K/mm3 Eos # (Auto) 0.7 H (0-0.3) K/mm3 Baso # (Auto) 0.1 (0.0-0.1) K/mm3 Abs Immat Gran (auto) 0.03 (0.00-0.031) K/mm3 Absolute Neuts (auto) 6.5 (1.3-6.7) K/mm3 Absolute Nucleated RBC 0.000 (0.0-0.012) K/mm3 Nucleated RBC % 0.0 (0.0-0.2) % Sodium 139 (137-145) mmol/L Potassium 4.2 (3.4-5.0) mmol/L Chloride 107 (98-107) mmol/L Carbon Dioxide 25 (22-30) mmol/L Anion Gap 7 (4-12) mmol/L BUN 13 (9-20) mg/dL Creatinine 1.22 (0.7-1.3) mg/dL Estim Creat Clear Calc 95 ml/min Estimated GFR > 60 (59 - ) Glucose 87 (65-110) mg/dL Lactic Acid 1.0 (0.7-2.0) mmol/L Calcium 9.2 (8.4-10.2) mg/dL Total Bilirubin 0.8 (0.2-1.3) mg/dL AST 44 (17-59) U/L ALT 77 H (6-50) U/L Alkaline Phosphatase 75 (38-126) U/L Total Protein 7.1 (6.3-8.2) g/dL Albumin 4.3 (3.5-5.1) g/dL Lipase 433 H (23-300) U/L Urine Color Dark yellow (Yellow) Urine Appearance Clear (Clear) Urine pH 6.0 (5.0-9.0) Ur Specific [place] 1.041 H (1.001-1.035) Urine Protein 1+ H (Negative) mg/dL Urine Glucose (UA) Negative (Negative) mg/dL Urine Ketones Trace H (Negative) mg/dL Ur Blood (Man) Negative (Negative) Urine Nitrate Negative (Negative) Urine Bilirubin Negative (Negative) Urine Urobilinogen 1.0 (<2.0) mg/dL Add Ur Microanalysis Reviewed Leukocyte Esterase Rfl Negative (Negative) JEFFERY/UL Urine RBC 0-2 (0-2) /hpf Urine WBC 0-5 (0-3) /hpf Ur Squamous Epith Cells None seen (Few) /hpf Urine Bacteria None seen /hpf Urine Casts 3-5 Urine Mucus Present /lpf Imaging Data Attestation: I personally reviewed and interpreted this imaging study as follows: Radiologist's impression: ITS Impressions Abdomen/Pelvis CT 03/22/25 15:59 IMPRESSION: No acute findings within the lower chest, abdomen or pelvis, as detailed above. Abdomen Ultrasound 03/22/25 17:14 IMPRESSION: 1. Diffuse hepatic steatosis. 2. Positive sonographic Mendosa sign but without cholelithiasis to more specifically suggest acute cholecystitis. The normal nondilated appearance of the gallbladder with no pericholecystic inflammatory stranding on the prior CT further decreases suspicion for acute cholecystitis. If there is continued clinical concern for acute cholecystitis could consider HIDA scan for further evaluation. Discharge Plan Discharge Clinical Impression: Gastroenteritis, Biliary colic Patient Disposition: Home Condition: Stable Instructions: Antibiotic Form, Heart Healthy Diet (ED) Additional Instructions: Please return to the ER with any worsening symptoms. Follow-up with primary care provider as soon as possible. Take all medications as prescribed, including regularly scheduled medications. You may take Bentyl as needed for abdominal pain. Please remember to drink lots of water. You may take Zofran as needed for nausea. Patient Language: Telugu Prescriptions: New dicyclomine 10 mg capsule 10 mg PO TID Qty: 15 0RF ondansetron 4 mg tablet,disintegrating 4 mg PO Q8H Qty: 21 0RF No Action benzonatate 200 mg capsule 200 mg PO TID PRN (Reason: cough) 10 Days Qty: 30 0RF albuterol sulfate [Ventolin HFA] 90 mcg/actuation HFA aerosol inhaler 2 puff INHALATION .Q4 hours PRN (Reason: cough) Qty: 18 0RF methylprednisolone 4 mg tablets,dose pack See Rx Instructions PO .COMPLEX Qty: 21 0RF Rx Instructions: for 6 days Biktarvy 50-200-25 mg Tablet 1 tablet PO DAILY Follow-up/Referrals: PHYSICIAN NOT ON STAFF,NONSTAFF [Primary Care Provider] - Stand Alone Forms: Work/School Release IP Time of Disposition: 17:53
[2025-03-22 15:09] LABS: Hematocrit 43.8 % (42.0-52.0); Hemoglobin 14.7 g/dL (14.0-18.0); Immature Granulocyte Percent A 0.3 % (0-0.5); Lymphocytes Absolute Auto 2.54 K/mm3 (0.9-3.2); Mean Corpuscular HGB Conc 33.6 g/dl (32-36); Mean Corpuscular Hemoglobin 33.0 pg (26-34); Mean Corpuscular Volume 98.2 fl (80-100); Nucleated Red Blood Cells Absolute Auto 0.000 K/mm3 (0.0-0.012); Nucleated Red Blood Cells Perc 0.0 % (0.0-0.2); Platelet Count Result 142 k/mm3 (150-375); Red Blood Count 4.46 M/mm3 (4.6-6.20); White Blood Count 10.7 K/mm3 (4.5-10.0)
[2025-03-22] MEDS: SODIUM CHLORIDE 0.9% IV 1,000 ML 999 ML IV CONT (15:09)
[2025-03-22] MEDS: MORPHINE SULFATE (*CRX) 4 MG/ML INJ IV PUSH (15:10)
[2025-03-22 15:17] VITALS: BP 125/86; PULSE 100; RESP 16; O2SAT 99
[2025-03-22 15:29] LABS: Add Urine Microscopic? YES; Appearance Urine Clear (Clear); Glucose Urine UA Negative (Negative); Leukocyte Esterase Ur Negative LEU/UL (Negative); Need Manual Microscopic Reviewed; Nitrate Urine Negative (Negative); Specific Grav Ur 1.041 (1.001-1.035)
[2025-03-22 15:36] LABS: Alanine Aminotransferase 77 U/L (6-50); Albumin Level 4.3 g/dL (3.5-5.1); Alkaline Phosphatase 75 U/L (38-126); Anion Gap 7 mmol/L (4-12); Aspartate Amino Transferase 44 U/L (17-59); Bilirubin,Total 0.8 mg/dL (0.2-1.3); Blood Urea Nitrogen 13 mg/dL (9-20); Calcium 9.2 mg/dL (8.4-10.2); Carbon Dioxide 25 mmol/L (22-30); Chloride 107 mmol/L (98-107); Estimated CRCL calculation 95 ml/min; Estimated Glomerular Filt Rate > 60; Glucose 87 mg/dL (65-110); Lipase 433 U/L (23-300); Potassium 4.2 mmol/L (3.4-5.0); Sodium 139 mmol/L (137-145); Total Protein 7.1 g/dL (6.3-8.2)
[2025-03-22 16:54] VITALS: BP 150/95; PULSE 88; RESP 16; O2SAT 97
[2025-03-22] MEDS: DICYCLOMINE HCL 10 MG CAPSULE 20 MG PO (17:53)
== END 2025-03-22 18:05 | disposition home or self-care (01) ==
PROVIDERS: Emergency Provider Registered Nurse
DX: K52.9 Noninfective gastroenteritis and colitis, unspecified (principal); R10.11 Right upper quadrant pain; E78.5 Hyperlipidemia, unspecified; J45.909 Unspecified asthma, uncomplicated; F41.9 Anxiety disorder, unspecified; F32.A Depression, unspecified; Z21 Asymptomatic human immunodeficiency virus [HIV] infection status; K76.0 Fatty (change of) liver, not elsewhere classified; Z79.899 Other long term (current) drug therapy; I49.3 Ventricular premature depolarization; I45.10 Unspecified right bundle-branch block
CPT/HCPCS: 36415; 74177; 76705; 80053; 81001; 83605; 83690; 85025; 93005; 96361; 96374; 99284; A9270; J2270; J7030; Q9967

== ENCOUNTER 2025-03-29 14:40 | Emergency (ER) | payer BC, SELFPAY ==
--- NOTE | ~2025-03-29 | CT_ITS ---
EXAMINATION: CT abdomen pelvis w con DATE: 03/29/2025 20:26 INDICATION: Right upper quadrant pain, nausea, vomiting and fevers TECHNIQUE: Computed tomography (CT) of the abdomen and pelvis was performed with 100 cc Omnipaque 350 intravenous contrast. The dose-length product was 1411.66 mGy-cm. Automated exposure control and ite rative reconstruction technique were employed. COMPARISON: CT dated 03/22/2025. FINDINGS: There is lingular and lower lobe atelectasis. Heart size normal. No significant pleural or pericardial effusion. Fatty infiltration of the liver. Stable fluid and stranding in the umbilical lo cation which may be postsurgical. Clinically correlate. Nonobstructive bowel gas pattern. The spleen, pancreas, adrenal glands and kidneys are unremarkable. Gallbladder is present. Status post appendect keith. No acute osseous abnormality. IMPRESSION: 1. No acute abdominal abnormality. Reviewed, dictated and finalized at location A.
--- NOTE | ~2025-03-29 | US_ITS ---
US abdomen limited INDICATION: Right upper quadrant pain PROCEDURE: Realtime right upper abdominal ultrasound. COMPARISON: CT dated 03/29/2020 FINDINGS: The pancreas is normal without focal mass or pancreatic ductal dilation. Liver echotexture is increased, consistent with fatty infiltration. There is normal directional flow in the portal ve in. Gallbladder not well distended, although grossly unremarkable. Common bile duct measures 2 mm. No s onographic Mendosa's sign. IMPRESSION: 1: Fatty infiltration of the liver. Reviewed, dictated and finalized at location A.
[2025-03-29 14:53] VITALS: BP 134/92; PULSE 109; RESP 18; TEMP 36.7; O2SAT 98
--- NOTE | 2025-03-29 16:16 | ED_ITS ---
HPI - Abdominal Pain General Chief Complaint: Abdominal Pain <NORMA Casillas Last Filed: 03/30/25 10:08> Stated Complaint: gallbladder issues <NORMA Casillas Last Filed: 03/30/25 10:08> Time Seen by Provider: 03/29/25 16:16 <Mounika Gannon PA-C - Last Filed: 03/30/25 10:08> Focused HPI: This is a 45 year old male that presents to the ER for abdominal pain. Reports he was seen about a week ago for possible gallbladder attacks. Reports worsening pain, nausea, vomiting, which prompted him to be seen again. Denies fevers. GENERAL: Well-appearing, well-nourished, and in no acute distress. HEAD: Normocephalic, atraumatic. CHEST: Clear to auscultation. ?No respiratory distress. HEART: Regular rate and rhythm.? NEURO: ?Alert and oriented x3. Patient screened in triage and initial orders placed.? ?Additional care and disposition to be based upon?diagnostic testing and treatment. <Mounika Gannon PA-C - Last Filed: 03/30/25 10:08> Focused HPI: This is a 45 year old male that presents to the ER for abdominal pain. Reports he was seen about a week ago for possible gallbladder attacks. Reports worsening pain, nausea, vomiting, which prompted him to be seen again. Denies fevers. GENERAL: Well-appearing, well-nourished, and in no acute distress. HEAD: Normocephalic, atraumatic. CHEST: Clear to auscultation. ?No respiratory distress. HEART: Regular rate and rhythm.? NEURO: ?Alert and oriented x3. Patient screened in triage and initial orders placed.? ?Additional care and disposition to be based upon?diagnostic testing and treatment. <NORMA Carlson Last Filed: 03/30/25 00:36> Source: patient <NORMA Carlson Last Filed: 03/30/25 00:36> Mode of arrival: ambulatory <NORMA Carlson Last Filed: 03/30/25 00:36> Limitations: no limitations <Gregoria Duncan PA-C - Last Filed: 03/30/25 00:36> History of Present Illness HPI narrative: Agree with above HPI. Reports several episodes of vomiting today. Reports pain is present in right upper quadrant. Does report subjective fever on Saturday. Denies CP or SOB. <Gregoria Duncan PA-C - Last Filed: 03/30/25 00:36> Related Data Home Medications: Home Medications ?Medication ?Instructions ?Recorded ?Confirmed ?Last Taken ?Type bictegravir 50 mg-emtricitabine 1 tablet PO DAILY 01/1009/08/24 Unknown History 200 mg-tenofovir alafenam 25 mg tablet (Biktarvy) <Mounika Gannon PA-C - Last Filed: 03/30/25 10:08> Allergies/Adverse Reactions: Allergies Allergy/AdvReac Type Severity Reaction Status Date / Time banana Allergy Mild MOUTH SORES Verified 03/22/25 13:38 cat dander Allergy Mild Itching Verified 03/22/25 13:38 tomato Allergy Mild MOUTH SORES Verified 03/22/25 13:38 <Mounika Gannon PA-C - Last Filed: 03/30/25 10:08> Review of Systems 2 Review of Systems: All systems reviewed & are unremarkable except as noted in HPI. <Gregoria Duncan PA-C - Last Filed: 03/30/25 00:36> All systems reviewed & are unremarkable except as noted in HPI and below < Gregoria Duncan PA-C - Last Filed: 03/30/25 00:36> [facility] Past Medical History Medical History: Medical History HIV (human immunodeficiency virus infection) Anxiety Depression Leg fracture Asthma Hyperlipidemia <Mounika Gannon PA-C - Last Filed: 03/30/25 10:08> Surgical History Surgical History: Surgical History H/O ventral hernia repair 08/24/24 robotic assisted repair of recurrent, incarcerated ventral incisional hernia with total defects measuring [address] Lara History of appendectomy History of tonsillectomy <Mounika Gannon PA-C - Last Filed: 03/30/25 10:08> Social History Social History: Social History Smoking status: Never smoker Alcohol intake: current Drinks per week: 3 Substance use: never Substance use type: does not use Do You Feel Safe in your Home?: Yes Lack of Transportation: No Lack of Food: Never True Current Housing: I Have Housing Concerned About Future Housing: No Difficulty Paying Gas/Electric Bills: No Difficulty Paying for Meds: No Currently Unemployed: No Education: High School Diploma/GED Difficulty w/ Childcare or Family Care: No Living arrangements: with family Gender identity (if verbalized by the patient): Female Spiritual care concerns: Yes <Mounika Gannon PA-C - Last Filed: 03/30/25 10:08> Exam 2 Narrative: GENERAL: Well appearing, obese with BMI of 39.9, non-toxic, in no acute distress. HEAD: Normocephalic, atraumatic. RESPIRATORY: Airway patent, respirations nonlabored. Clear to auscultation bilaterally, no rales, rhonchi, wheezing. CARDIOVASCULAR: Regular rate and rhythm without murmurs, rubs, or gallops. ABDOMINAL: Soft, diffuse right-sided tenderness in right mid to upper abdomen, nondistended. Normoactive BS. MUSCULOSKELETAL: Moves all extremities. No gross deformities. SKIN: Warm, dry, normal color. NEURO: A&O X3. Speech clear. Cranial nerves II-XII grossly intact. Steady gait. No ataxic movements. PSYCHIATRIC: Appropriate mood and affect. Normal interaction. <Gregoria Duncan PA-C - Last Filed: 03/30/25 00:36> Course Vital Signs Vital signs: Vital Signs Temperature 98.0 F 03/29/25 14:53 Pulse Rate 109 H 03/29/25 14:53 Respiratory Rate 18 03/29/25 14:53 Blood Pressure 134/92 H 03/29/25 14:53 Pulse Oximetry 98 03/29/25 14:53 Oxygen Delivery Room Air 03/29/25 14:53 Temperature 98.2 F 03/29/25 16:53 Pulse Rate 98 03/29/25 16:53 Respiratory Rate 18 03/29/25 16:53 Blood Pressure 136/90 03/29/25 16:53 Pulse Oximetry 99 03/29/25 16:53 Oxygen Delivery Room Air 03/29/25 14:53 <Mounika Gannon PA-C - Last Filed: 03/30/25 10:08> Vital Signs Temperature 98.0 F 03/29/25 14:53 Pulse Rate 109 H 03/29/25 14:53 Respiratory Rate 18 03/29/25 14:53 Blood Pressure 134/92 H 03/29/25 14:53 Pulse Oximetry 98 03/29/25 14:53 Oxygen Delivery Room Air 03/29/25 14:53 Temperature 98.2 F 03/29/25 16:53 Pulse Rate 98 03/29/25 16:53 Respiratory Rate 18 03/29/25 16:53 Blood Pressure 136/90 03/29/25 16:53 Pulse Oximetry 99 03/29/25 16:53 Oxygen Delivery Room Air 03/29/25 14:53 <Gregoria Duncan PA-C - Last Filed: 03/30/25 00:36> MDM - Abdominal Pain MDM Narrative Medical decision making narrative: Patient presented to ED with recurrent episode of right upper quadrant abdominal pain, nausea, vomiting. Reported having similar issue last week, was seen here and was told it was gallbladder related. Vital signs are stable upon arrival. Patient is afebrile here. He is in no acute distress. Cbc with blood cell count 10.5. CMP with creatinine 1.36. Slightly increased from baseline. Given fluids. ALT is slightly elevated to 91, however remainder of LFTs, bilirubin, lipase are within normal range. UA is clear. CT scan of abdomen/pelvis was obtained and unremarkable. Right upper quadrant ultrasound was obtained and showing fatty infiltration of liver, otherwise unremarkable. No evidence of cholelithiasis, cholecystitis. Discussed lab and imaging findings with patient. He is feeling improved with supportive therapy in the ED. Discussed possibility of acid reflux/gastritis picture given otherwise normal workup. Will start patient on PPI. He does not currently take anything for acid reflux. Discussed further lifestyle/dietary modifications. Will refer to GI/general surgery. Patient given strict return precautions. He is in agreement with plan. Given work note. Discharged in stable condition. <Gregoria Duncan PA-C - Last Filed: 03/30/25 00:36> Medical Records Attestation: I reviewed the patient's medical records. <Gregoria Duncan PA-C - Last Filed: 03/30/25 00:36> Lab Data Attestation: I reviewed the patient's lab results. <Gregoria Duncan PA-C - Last Filed: 03/30/25 00:36> Result diagrams: 03/29/25 17:37 03/29/25 18:44 <Mounika Gannon PA-C - Last Filed: 03/30/25 10:08> Labs: Lab Results 03/29/25 03/29/25 Range/Units 17:37 18:44 WBC 10.5 H (4.5-10.0) K/mm3 RBC 4.64 (4.6-6.20) M/mm3 Hgb 15.3 (14.0-18.0) g/dL Hct 45.1 (42.0-52.0) % MCV 97.2 (80-100) fl MCH 33.0 (26-34) pg MCHC 33.9 (32-36) g/dl RDW 13.0 (11.5-14.5) % Plt Count 154 (150-375) k/mm3 MPV 12.6 H (7.4-10.4) fl Immature Gran % (Auto) 0.4 (0-0.5) % Neut % (Auto) 58.9 (45.5-73.1) % Lymph % (Auto) 26.1 (18.3-44.2) % [place] % (Auto) 7.9 (2.6-8.5) % Eos % (Auto) 5.8 H (0-4.4) % Baso % (Auto) 0.9 (0.2-1.2) % Lymph # (Auto) 2.73 (0.9-3.2) K/mm3 [place] # (Auto) 0.8 H (0.1-0.6) K/mm3 Eos # (Auto) 0.6 H (0-0.3) K/mm3 Baso # (Auto) 0.1 (0.0-0.1) K/mm3 Abs Immat Gran (auto) 0.04 H (0.00-0.031) K/mm3 Absolute Neuts (auto) 6.2 (1.3-6.7) K/mm3 Absolute Nucleated RBC 0.000 (0.0-0.012) K/mm3 Nucleated RBC % 0.0 (0.0-0.2) % Sodium 139 (137-145) mmol/L Potassium 4.2 (3.4-5.0) mmol/L Chloride 108 H (98-107) mmol/L Carbon Dioxide 22 (22-30) mmol/L Anion Gap 9 (4-12) mmol/L BUN 16 (9-20) mg/dL Creatinine 1.36 H (0.7-1.3) mg/dL Estim Creat Clear Calc 84 ml/min Estimated GFR 57 L (59 - ) Glucose 89 (65-110) mg/dL Calcium 9.6 (8.4-10.2) mg/dL Total Bilirubin 0.7 (0.2-1.3) mg/dL AST 46 (17-59) U/L ALT 91 H (6-50) U/L Alkaline Phosphatase 76 (38-126) U/L Total Protein 7.1 (6.3-8.2) g/dL Albumin 4.3 (3.5-5.1) g/dL Lipase 185 (23-300) U/L Urine Color Yellow (Yellow) Urine Appearance Clear (Clear) Urine pH 5.5 (5.0-9.0) Ur Specific Spur 1.028 (1.001-1.035) Urine Protein Negative (Negative) mg/dL Urine Glucose (UA) Negative (Negative) mg/dL Urine Ketones Negative (Negative) mg/dL Ur Blood (Man) Negative (Negative) Urine Nitrate Negative (Negative) Urine Bilirubin Negative (Negative) Urine Urobilinogen 0.2 (<2.0) mg/dL Leukocyte Esterase Rfl Negative (Negative) JEFFERY/UL <Mounika Gannon PA-C - Last Filed: 03/30/25 10:08> Lab Results 03/29/25 03/29/25 Range/Units 17:37 18:44 WBC 10.5 H (4.5-10.0) K/mm3 RBC 4.64 (4.6-6.20) M/mm3 Hgb 15.3 (14.0-18.0) g/dL Hct 45.1 (42.0-52.0) % MCV 97.2 (80-100) fl MCH 33.0 (26-34) pg MCHC 33.9 (32-36) g/dl RDW 13.0 (11.5-14.5) % Plt Count 154 (150-375) k/mm3 MPV 12.6 H (7.4-10.4) fl Immature Gran % (Auto) 0.4 (0-0.5) % Neut % (Auto) 58.9 (45.5-73.1) % Lymph % (Auto) 26.1 (18.3-44.2) % [place] % (Auto) 7.9 (2.6-8.5) % Eos % (Auto) 5.8 H (0-4.4) % Baso % (Auto) 0.9 (0.2-1.2) % Lymph # (Auto) 2.73 (0.9-3.2) K/mm3 [place] # (Auto) 0.8 H (0.1-0.6) K/mm3 Eos # (Auto) 0.6 H (0-0.3) K/mm3 Baso # (Auto) 0.1 (0.0-0.1) K/mm3 Abs Immat Gran (auto) 0.04 H (0.00-0.031) K/mm3 Absolute Neuts (auto) 6.2 (1.3-6.7) K/mm3 Absolute Nucleated RBC 0.000 (0.0-0.012) K/mm3 Nucleated RBC % 0.0 (0.0-0.2) % Sodium 139 (137-145) mmol/L Potassium 4.2 (3.4-5.0) mmol/L Chloride 108 H (98-107) mmol/L Carbon Dioxide 22 (22-30) mmol/L Anion Gap 9 (4-12) mmol/L BUN 16 (9-20) mg/dL Creatinine 1.36 H (0.7-1.3) mg/dL Estim Creat Clear Calc 84 ml/min Estimated GFR 57 L (59 - ) Glucose 89 (65-110) mg/dL Calcium 9.6 (8.4-10.2) mg/dL Total Bilirubin 0.7 (0.2-1.3) mg/dL AST 46 (17-59) U/L ALT 91 H (6-50) U/L Alkaline Phosphatase 76 (38-126) U/L Total Protein 7.1 (6.3-8.2) g/dL Albumin 4.3 (3.5-5.1) g/dL Lipase 185 (23-300) U/L Urine Color Yellow (Yellow) Urine Appearance Clear (Clear) Urine pH 5.5 (5.0-9.0) Ur Specific [place] 1.028 (1.001-1.035) Urine Protein Negative (Negative) mg/dL Urine Glucose (UA) Negative (Negative) mg/dL Urine Ketones Negative (Negative) mg/dL Ur Blood (Man) Negative (Negative) Urine Nitrate Negative (Negative) Urine Bilirubin Negative (Negative) Urine Urobilinogen 0.2 (<2.0) mg/dL Leukocyte Esterase Rfl Negative (Negative) JEFFERY/UL <NORMA Carlson Last Filed: 03/30/25 00:36> Imaging Data Attestation: I personally reviewed and interpreted this imaging study as follows: < NORMA Carlson Last Filed: 03/30/25 00:36> Radiologist's impression: ITS Impressions Abdomen/Pelvis CT 03/29/25 20:29 IMPRESSION: 1. No acute abdominal abnormality. Abdomen Ultrasound 03/29/25 21:25 IMPRESSION: 1: Fatty infiltration of the liver. <NORMA Casillas Last Filed: 03/30/25 10:08> ITS Impressions Abdomen/Pelvis CT 03/29/25 20:29 IMPRESSION: 1. No acute abdominal abnormality. Abdomen Ultrasound 03/29/25 21:25 IMPRESSION: 1: Fatty infiltration of the liver. <NORMA Carlson Last Filed: 03/30/25 00:36> Critical Care Time Critical Care Time Critical Care Time: No <NORMA Casillas Last Filed: 03/30/25 10:08> Discharge Plan Discharge Clinical Impression: Acute upper abdominal pain <NORMA Casillas Last Filed: 03/30/25 10:08> Patient Disposition: Home <Mounika Gannon PA-C - Last Filed: 03/30/25 10:08> Condition: Stable <NORMA Casillas Last Filed: 03/30/25 10:08> Instructions: Antibiotic Form, Diet for Stomach Ulcers and Gastritis (ED), GERD (Gastroesophageal Reflux Disease) (ED), Abdominal Pain (ED) <NORMA Casillas Last Filed: 03/30/25 10:08> Additional Instructions: Take Protonix daily for acid reflux suppression. Avoid foods that are very greasy, spicy, fatty, acidic. Avoid eating food late at night or laying flat directly after eating. Limit alcohol use. Avoid NSAIDs such as ibuprofen, Motrin, Advil, Aleve. You may use Tylenol as needed for pain. Zofran as needed for nausea. Follow-up with your primary care doctor and or surgery/GI for further evaluation. Call office make appointment. Return to the ED if you experience worsening or severe pain, unable to keep down food or drink, difficulty breathing or swallowing, chest pain, persistent fevers, or any other symptoms of concern. <NORMA Casillas Last Filed: 03/30/25 10:08> Patient Language: [place] Citizen <Mounika Gannon PA-C - Last Filed: 03/30/25 10:08> Prescriptions: New pantoprazole [Protonix] 40 mg tablet,delayed release (DR/EC) 40 mg PO HS 28 Days Qty: 28 0RF ondansetron 4 mg tablet,disintegrating 4 mg PO Q8H PRN (Reason: nausea and vomiting) Qty: 15 0RF No Action benzonatate 200 mg capsule 200 mg PO TID PRN (Reason: cough) 10 Days Qty: 30 0RF albuterol sulfate [Ventolin HFA] 90 mcg/actuation HFA aerosol inhaler 2 puff INHALATION .Q4 hours PRN (Reason: cough) Qty: 18 0RF methylprednisolone 4 mg tablets,dose pack See Rx Instructions PO .COMPLEX Qty: 21 0RF Rx Instructions: for 6 days Biktarvy 50-200-25 mg Tablet 1 tablet PO DAILY dicyclomine 10 mg capsule 10 mg PO TID Qty: 15 0RF ondansetron 4 mg tablet,disintegrating 4 mg PO Q8H Qty: 21 0RF <Mounika Gannon PA-C - Last Filed: 03/30/25 10:08> Follow-up/Referrals: Traci Lara MD [Physician, General Surgery] Referral Note: GENERAL SURGERY PHYSICIAN NOT ON STAFF,NONSTAFF [Primary Care Provider] Bertrand Ames MD [Physician, Gastroenterology] Referral Note: GI <Mounika Gannon PA-C - Last Filed: 03/30/25 10:08> Stand Alone Forms: Work/School Release IP <Mounika Gannon PA-C - Last Filed: 03/30/25 10:08> Time of Disposition: 22:23 <Mounika Gannon PA-C - Last Filed: 03/30/25 10:08> 22:23 <Gregoria Duncan PA-C - Last Filed: 03/30/25 00:36>
[2025-03-29 16:53] VITALS: BP 136/90; PULSE 98; RESP 18; TEMP 36.8; O2SAT 99
[2025-03-29 17:47] LABS: Hematocrit 45.1 % (42.0-52.0); Hemoglobin 15.3 g/dL (14.0-18.0); Immature Granulocyte Percent A 0.4 % (0-0.5); Lymphocytes Absolute Auto 2.73 K/mm3 (0.9-3.2); Mean Corpuscular HGB Conc 33.9 g/dl (32-36); Mean Corpuscular Hemoglobin 33.0 pg (26-34); Mean Corpuscular Volume 97.2 fl (80-100); Nucleated Red Blood Cells Absolute Auto 0.000 K/mm3 (0.0-0.012); Nucleated Red Blood Cells Perc 0.0 % (0.0-0.2); Platelet Count Result 154 k/mm3 (150-375); Red Blood Count 4.64 M/mm3 (4.6-6.20); White Blood Count 10.5 K/mm3 (4.5-10.0)
[2025-03-29] MEDS: FAMOTIDINE 20 MG/2 ML VIAL IV PUSH (18:59)
[2025-03-29] MEDS: ONDANSETRON INJ 4 MG/2 ML VIAL IV PUSH (18:59)
[2025-03-29 19:08] LABS: Alanine Aminotransferase 91 U/L (6-50); Albumin Level 4.3 g/dL (3.5-5.1); Alkaline Phosphatase 76 U/L (38-126); Anion Gap 9 mmol/L (4-12); Aspartate Amino Transferase 46 U/L (17-59); Bilirubin,Total 0.7 mg/dL (0.2-1.3); Blood Urea Nitrogen 16 mg/dL (9-20); Calcium 9.6 mg/dL (8.4-10.2); Carbon Dioxide 22 mmol/L (22-30); Chloride 108 mmol/L (98-107); Estimated CRCL calculation 84 ml/min; Estimated Glomerular Filt Rate 57; Glucose 89 mg/dL (65-110); Lipase 185 U/L (23-300); Potassium 4.2 mmol/L (3.4-5.0); Sodium 139 mmol/L (137-145); Total Protein 7.1 g/dL (6.3-8.2)
[2025-03-29] MEDS: SODIUM CHLORIDE 0.9% IV 1,000 ML 999 ML IV CONT (19:19)
[2025-03-29] MEDS: MORPHINE SULFATE (*CRX) 4 MG/ML INJ IV PUSH (19:20)
[2025-03-29 19:21] LABS: Add Urine Microscopic? NO; Appearance Urine Clear (Clear); Glucose Urine UA Negative (Negative); Leukocyte Esterase Ur Negative LEU/UL (Negative); Nitrate Urine Negative (Negative); Specific Grav Ur 1.028 (1.001-1.035)
== END 2025-03-29 22:32 | disposition home or self-care (01) ==
PROVIDERS: Physician Assistant; Emergency Provider Physician Assistant
DX: R10.11 Right upper quadrant pain (principal); J45.909 Unspecified asthma, uncomplicated; E78.5 Hyperlipidemia, unspecified; F41.9 Anxiety disorder, unspecified; F32.A Depression, unspecified; Z21 Asymptomatic human immunodeficiency virus [HIV] infection status; Z79.899 Other long term (current) drug therapy; K76.0 Fatty (change of) liver, not elsewhere classified
CPT/HCPCS: 36415; 74177; 76705; 80053; 81003; 83690; 85025; 96361; 96374; 96375; 99284; J2270; J2405; J7030; Q9967

== ENCOUNTER 2025-04-03 05:45 | Emergency (ER) | payer BC, SELFPAY ==
[2025-04-03 05:52] VITALS: BP 130/106; PULSE 121; RESP 22; TEMP 36.4; O2SAT 95
[2025-04-03] MEDS: SODIUM CHLORIDE 0.9% IV 1,000 ML 999 ML IV CONT (06:14)
[2025-04-03] MEDS: MORPHINE SULFATE (*CRX) 2 MG/ML INJ IV PUSH ×2 (06:14→06:43)
[2025-04-03] MEDS: ONDANSETRON INJ 4 MG/2 ML VIAL IV PUSH (06:14)
[2025-04-03 06:20] LABS: Hematocrit 42.8 % (42.0-52.0); Hemoglobin 14.5 g/dL (14.0-18.0); Immature Granulocyte Percent A 0.6 % (0-0.5); Lymphocytes Absolute Auto 2.70 K/mm3 (0.9-3.2); Mean Corpuscular HGB Conc 33.9 g/dl (32-36); Mean Corpuscular Hemoglobin 33.3 pg (26-34); Mean Corpuscular Volume 98.2 fl (80-100); Nucleated Red Blood Cells Absolute Auto 0.000 K/mm3 (0.0-0.012); Nucleated Red Blood Cells Perc 0.0 % (0.0-0.2); Platelet Count Result 150 k/mm3 (150-375); Red Blood Count 4.36 M/mm3 (4.6-6.20); White Blood Count 8.9 K/mm3 (4.5-10.0)
[2025-04-03 06:31] LABS: Alanine Aminotransferase 117 U/L (6-50); Albumin Level 4.3 g/dL (3.5-5.1); Alkaline Phosphatase 74 U/L (38-126); Anion Gap 11 mmol/L (4-12); Aspartate Amino Transferase 68 U/L (17-59); Bilirubin,Total 0.4 mg/dL (0.2-1.3); Blood Urea Nitrogen 13 mg/dL (9-20); Calcium 9.1 mg/dL (8.4-10.2); Carbon Dioxide 22 mmol/L (22-30); Chloride 106 mmol/L (98-107); Estimated Glomerular Filt Rate > 60; Glucose 118 mg/dL (65-110); Lipase 130 U/L (23-300); Magnesium 2.0 mg/dL (1.6-2.3); Potassium 3.7 mmol/L (3.4-5.0); Sodium 139 mmol/L (137-145); Total Protein 7.3 g/dL (6.3-8.2)
--- NOTE | 2025-04-03 06:39 | ED.ABDPAIN ---
HPI - Abdominal Pain General Chief Complaint: Abdominal Pain Stated Complaint: abd pain Time Seen by Provider: 04/03/25 05:47 History of Present Illness HPI narrative: Patient is a 45-year-old male who presents to the emergency department this evening complaining of right upper quadrant pain for the past 2 weeks. States that he has been struggling with these intermittent right upper quadrant gallbladder attacks for the past month. Patient has had 2 CT scans and 2 gallbladder ultrasounds performed in the last 2 weeks which were all negative. Patient states that he does want his gallbladder taking out. He does have an upcoming appointment with general surgery as an outpatient on Saturday of next week. Related Data Home Medications ?Medication ?Instructions ?Recorded ?Confirmed ?Last Taken ?Type bictegravir 50 mg-emtricitabine 1 tablet PO DAILY 01/27/20 09/08/24 Unknown History 200 mg-tenofovir alafenam 25 mg tablet (Biktarvy) Allergies Allergy/AdvReac Type Severity Reaction Status Date / Time banana Allergy Mild MOUTH SORES Verified 03/22/25 13:38 cat dander Allergy Mild Itching Verified 03/22/25 13:38 tomato Allergy Mild MOUTH SORES Verified 03/22/25 13:38 Review of Systems Review of Systems: All systems are reviewed and are negative unless stated otherwise in the HPI. [facility] Past Medical History Medical History HIV (human immunodeficiency virus infection) Anxiety Depression Leg fracture Asthma Hyperlipidemia Surgical History Surgical History H/O ventral hernia repair 08/24/24 robotic assisted repair of recurrent, incarcerated ventral incisional hernia with total defects measuring [address] Lara History of appendectomy History of tonsillectomy Social History Social History Smoking status: Never smoker Alcohol intake: current Drinks per week: 3 Substance use: never Substance use type: does not use Do You Feel Safe in your Home?: Yes Lack of Transportation: No Lack of Food: Never True Current Housing: I Have Housing Concerned About Future Housing: No Difficulty Paying Gas/Electric Bills: No Difficulty Paying for Meds: No Currently Unemployed: No Education: High School Diploma/GED Difficulty w/ Childcare or Family Care: No Living arrangements: with family Gender identity (if verbalized by the patient): Female Spiritual care concerns: Yes Exam Narrative: General: Alert, awake, afebrile, in no acute distress. HEENT: PERRL, no rhinorrhea, no post nasal drip, oropharynx clear. Neck: Trachea midline, no JVD, no lymphadenopathy. Cardiovascular: Regular rate and rhythm, no murmurs, rubs or gallops, no peripheral edema. Respiratory: Clear to auscultation bilaterally, no tachypnea, no wheezing, no rhonchi, no rubs, no respiratory distress. Abdomen: Soft, nontender, nondistended, no rebound, no guarding, no peritoneal signs. Musculoskeletal: No joint swelling or deformity, normal muscle tone. Skin: No rashes or petechia, no signs of infection. Psychiatric: Alert and oriented, normal behavior and judgment for situation. Neurological: Alert and oriented to person, place, and time. Follows all commands. No focal deficits, speech is clear and fluent. Course Vital Signs Vital signs: Vital Signs Temperature 97.6 F 04/03/25 05:52 Pulse Rate 121 H 04/03/25 05:52 Respiratory Rate 22 H 04/03/25 05:52 Blood Pressure 130/106 H 04/03/25 05:52 Pulse Oximetry 95 04/03/25 05:52 Oxygen Delivery Room Air 04/03/25 05:52 Temperature 97.6 F 04/03/25 05:52 Pulse Rate 121 H 04/03/25 05:52 Respiratory Rate 22 H 04/03/25 05:52 Blood Pressure 130/106 H 04/03/25 05:52 Pulse Oximetry 95 04/03/25 05:52 Oxygen Delivery Room Air 04/03/25 05:52 MDM - Abdominal Pain MDM Narrative Medical decision making narrative: The patient was evaluated by myself in the emergency department. History is obtained from patient who is an independent historian and physical exam was performed. External medical records were reviewed at this time. IV was established and pertinent tests were ordered. Patient was administered 1 L IV fluid bolus with normal saline, 4 mg IV morphine for pain and 4 mg IV Zofran for nausea. Laboratory results obtained revealing transaminitis with an AST of 68 and an ALT of 117 which is not far off from patient's baseline. Shared medical decision-making with the patient regarding obtaining additional imaging including a CT /ultrasound was discussed with the patient at this time, given that the patient has had 2 CT scans and 2 right upper quadrant ultrasound in the past 12 days, I did not recommend repeating any scans at the do not believe they are going to provide us with any additional information. Patient was informed the need to follow-up with his general surgeon for his upcoming appointment and in the meantime he needs to refrain from alcohol and change his diet as these 2 factors are precipitating his symptoms. Differential diagnosis considerations include biliary colic, pancreatitis, gastritis, and peptic ulcer disease. Comorbidities impacting this visit include none. I have evaluated and discussed social determinants of health with the patient that could potentially impact subsequent diagnosis and treatment plans. On repeat assessment of the patient, reevaluation revealed that the patient is doing well and is in no acute distress. Patient symptoms have improved since he arrived to our emergency department. Repeat vital signs were all reviewed and noted to be stable. Differential diagnosis and treatment plan were discussed with the patient at bedside. Patient agrees with discussion and after shared medical decision making agrees with discharge. All questions were answered to the patient's satisfaction. Patient will follow up with general sergury in 3-5 days. Patient was provided with strict return precautions and instructed to return to the emergency department if any new or worsening symptoms develop. The patient was discharged in stable condition. Lab Data 04/03/25 06:08 04/03/25 06:08 Labs: Lab Results 04/03/25 Range/Units 06:08 WBC 8.9 (4.5-10.0) K/mm3 RBC 4.36 L (4.6-6.20) M/mm3 Hgb 14.5 (14.0-18.0) g/dL Hct 42.8 (42.0-52.0) % MCV 98.2 (80-100) fl MCH 33.3 (26-34) pg MCHC 33.9 (32-36) g/dl RDW 12.9 (11.5-14.5) % Plt Count 150 (150-375) k/mm3 MPV 12.8 H (7.4-10.4) fl Immature Gran % (Auto) 0.6 H (0-0.5) % Neut % (Auto) 50.9 (45.5-73.1) % Lymph % (Auto) 30.3 (18.3-44.2) % [place] % (Auto) 9.7 H (2.6-8.5) % Eos % (Auto) 7.6 H (0-4.4) % Baso % (Auto) 0.9 (0.2-1.2) % Lymph # (Auto) 2.70 (0.9-3.2) K/mm3 [place] # (Auto) 0.9 H (0.1-0.6) K/mm3 Eos # (Auto) 0.7 H (0-0.3) K/mm3 Baso # (Auto) 0.1 (0.0-0.1) K/mm3 Abs Immat Gran (auto) 0.05 H (0.00-0.031) K/mm3 Absolute Neuts (auto) 4.5 (1.3-6.7) K/mm3 Absolute Nucleated RBC 0.000 (0.0-0.012) K/mm3 Nucleated RBC % 0.0 (0.0-0.2) % Sodium 139 (137-145) mmol/L Potassium 3.7 (3.4-5.0) mmol/L Chloride 106 (98-107) mmol/L Carbon Dioxide 22 (22-30) mmol/L Anion Gap 11 (4-12) mmol/L BUN 13 (9-20) mg/dL Creatinine 1.24 (0.7-1.3) mg/dL Estim Creat Clear Calc Not Reportable Estimated GFR > 60 (59 - ) Glucose 118 H (65-110) mg/dL Lactic Acid 1.6 (0.7-2.0) mmol/L Calcium 9.1 (8.4-10.2) mg/dL Magnesium 2.0 (1.6-2.3) mg/dL Total Bilirubin 0.4 (0.2-1.3) mg/dL AST 68 H (17-59) U/L ALT 117 H (6-50) U/L Alkaline Phosphatase 74 (38-126) U/L Total Protein 7.3 (6.3-8.2) g/dL Albumin 4.3 (3.5-5.1) g/dL Lipase 130 (23-300) U/L Discharge Plan Discharge Clinical Impression: Abdominal pain, RUQ Patient Disposition: Home Condition: Improved Instructions: Antibiotic Form, Abdominal Pain (ED) Additional Instructions: Please follow-up with your family doctor /in all surgeon as scheduled for your upcoming appointment on Saturday. Return to the ED if any new or worsening symptoms develop. Patient Language: Estonian Prescriptions: No Action benzonatate 200 mg capsule 200 mg PO TID PRN (Reason: cough) 10 Days Qty: 30 0RF albuterol sulfate [Ventolin HFA] 90 mcg/actuation HFA aerosol inhaler 2 puff INHALATION .Q4 hours PRN (Reason: cough) Qty: 18 0RF methylprednisolone 4 mg tablets,dose pack See Rx Instructions PO .COMPLEX Qty: 21 0RF Rx Instructions: for 6 days Biktarvy 50-200-25 mg Tablet 1 tablet PO DAILY dicyclomine 10 mg capsule 10 mg PO TID Qty: 15 0RF ondansetron 4 mg tablet,disintegrating 4 mg PO Q8H Qty: 21 0RF pantoprazole [Protonix] 40 mg tablet,delayed release (DR/EC) 40 mg PO HS 28 Days Qty: 28 0RF ondansetron 4 mg tablet,disintegrating 4 mg PO Q8H PRN (Reason: nausea and vomiting) Qty: 15 0RF Follow-up/Referrals: UNKNOWN,DOCTOR [Primary Care Provider] - 3 Days Stand Alone Forms: Work/School Release IP Time of Disposition: 06:51
[2025-04-03 06:49] VITALS: BP 117/74; PULSE 105; RESP 20; O2SAT 97
== END 2025-04-03 07:01 | disposition home or self-care (01) ==
PROVIDERS: Emergency Provider Emergency Medicine
DX: R10.11 Right upper quadrant pain (principal); Z21 Asymptomatic human immunodeficiency virus [HIV] infection status; E78.5 Hyperlipidemia, unspecified; Z79.899 Other long term (current) drug therapy
CPT/HCPCS: 36415; 80053; 83605; 83690; 83735; 85025; 96361; 96374; 96375; 96376; 99284; J2270; J2405; J7030

== ENCOUNTER 2025-04-08 01:56 | Emergency (ER) | payer BC, SELFPAY ==
[2025-04-08 02:10] VITALS: BP 148/103; PULSE 110; RESP 20; TEMP 36.9; O2SAT 96
[2025-04-08 02:14] VITALS: BP 148/103; PULSE 103; RESP 16; TEMP 36.9; O2SAT 95
[2025-04-08] MEDS: FAMOTIDINE 20 MG/2 ML VIAL IV PUSH (02:17)
[2025-04-08] MEDS: ONDANSETRON INJ 4 MG/2 ML VIAL IV PUSH (02:17)
[2025-04-08] MEDS: MORPHINE SULFATE (*CRX) 2 MG/ML INJ IV PUSH ×2 (02:17→03:59)
[2025-04-08 02:18] LABS: Hematocrit 41.1 % (42.0-52.0); Hemoglobin 14.3 g/dL (14.0-18.0); Immature Granulocyte Percent A 0.2 % (0-0.5); Lymphocytes Absolute Auto 2.77 K/mm3 (0.9-3.2); Mean Corpuscular HGB Conc 34.8 g/dl (32-36); Mean Corpuscular Hemoglobin 33.6 pg (26-34); Mean Corpuscular Volume 96.5 fl (80-100); Nucleated Red Blood Cells Absolute Auto 0.000 K/mm3 (0.0-0.012); Nucleated Red Blood Cells Perc 0.0 % (0.0-0.2); Platelet Count Result 156 k/mm3 (150-375); Red Blood Count 4.26 M/mm3 (4.6-6.20); White Blood Count 8.1 K/mm3 (4.5-10.0)
--- NOTE | 2025-04-08 02:18 | ED.ABDPAIN ---
HPI - Abdominal Pain General Chief Complaint: Abdominal Pain Stated Complaint: right flank pain Time Seen by Provider: 04/08/25 02:06 History of Present Illness HPI narrative: Patient is a 45-year-old male who presents to the emergency department this evening complaining of right upper quadrant chronic pain. Patient recently saw Dr. Castellon with general surgery and has an outpatient cholecystectomy scheduled next week on April 15. Patient states that he had a gallbladder attack today and although he tried to wait it out at home the pain did not improve despite taking tramadol around midnight. Patient decided to come to the emergency department for pain control. Otherwise no additional symptoms or concerns. Related Data Home Medications ?Medication ?Instructions ?Recorded ?Confirmed ?Last Taken ?Type bictegravir 50 mg-emtricitabine 1 tablet PO DAILY 01/27/20 04/07/25 Unknown History 200 mg-tenofovir alafenam 25 mg tablet (Biktarvy) Allergies Allergy/AdvReac Type Severity Reaction Status Date / Time banana Allergy Mild MOUTH SORES Verified 04/08/25 01:57 cat dander Allergy Mild Itching Verified 04/08/25 01:57 tomato Allergy Mild MOUTH SORES Verified 04/08/25 01:57 Review of Systems Review of Systems: All systems are reviewed and are negative unless stated otherwise in the HPI. [facility] Past Medical History Medical History HIV (human immunodeficiency virus infection) Anxiety Depression Leg fracture Asthma Hyperlipidemia Surgical History Surgical History H/O ventral hernia repair 08/24/24 robotic assisted repair of recurrent, incarcerated ventral incisional hernia with total defects measuring [address] Lara History of appendectomy History of tonsillectomy Social History Social History Smoking status: Never smoker Alcohol intake: current Drinks per week: 3 Substance use: never Substance use type: does not use Do You Feel Safe in your Home?: Yes Lack of Transportation: No Lack of Food: Never True Current Housing: I Have Housing Concerned About Future Housing: No Difficulty Paying Gas/Electric Bills: No Difficulty Paying for Meds: No Currently Unemployed: YES Education: High School Diploma/GED Difficulty w/ Childcare or Family Care: No Living arrangements: with family Gender identity (if verbalized by the patient): Female Spiritual care concerns: Yes Exam Narrative: General: Alert, awake, afebrile, in no acute distress. HEENT: PERRL, no rhinorrhea, no post nasal drip, oropharynx clear. Neck: Trachea midline, no JVD, no lymphadenopathy. Cardiovascular: Regular rate and rhythm, no murmurs, rubs or gallops, no peripheral edema. Respiratory: Clear to auscultation bilaterally, no tachypnea, no wheezing, no rhonchi, no rubs, no respiratory distress. Abdomen: Soft, nontender, nondistended, no rebound, no guarding, no peritoneal signs. Musculoskeletal: No joint swelling or deformity, normal muscle tone. Skin: No rashes or petechia, no signs of infection. Psychiatric: Alert and oriented, normal behavior and judgment for situation. Neurological: Alert and oriented to person, place, and time. Follows all commands. No focal deficits, speech is clear and fluent. Course Vital Signs Vital signs: Vital Signs Temperature 98.4 F 04/08/25 02:10 Pulse Rate 110 H 04/08/25 02:10 Respiratory Rate 20 04/08/25 02:10 Blood Pressure 148/103 H 04/08/25 02:10 Pulse Oximetry 96 04/08/25 02:10 Oxygen Delivery Room Air 04/08/25 02:10 Temperature 98.4 F 04/08/25 02:14 Pulse Rate 103 H 04/08/25 02:14 Respiratory Rate 16 04/08/25 02:14 Blood Pressure 148/103 H 04/08/25 02:14 Pulse Oximetry 95 04/08/25 02:14 Oxygen Delivery Room Air 04/08/25 02:10 MDM - Abdominal Pain MDM Narrative Medical decision making narrative: The patient was evaluated by myself in the emergency department. History is obtained from patient who is an independent historian and physical exam was performed. External medical records were reviewed at this time. IV was established and pertinent tests were ordered. Patient was administered 4 mg of IV morphine and 4 mg IV Zofran and 1 L IV fluid bolus with normal saline. Laboratory results obtained revealing no acute process. Giving the patient recently had a CT abdomen and pelvis and his normal blood work, I did inform patient I do not believe that a CT is indicated at this time and patient is in agreement. Differential diagnosis considerations include Cholecystitis, biliary colic, gastritis. Comorbidities impacting this visit include history of gallbladder disease. I have evaluated and discussed social determinants of health with the patient that could potentially impact subsequent diagnosis and treatment plans. On repeat assessment of the patient, reevaluation revealed that the patient is doing well and is in no acute distress. Patient symptoms have improved since he arrived to our emergency department. Repeat vital signs were all reviewed and noted to be stable. Differential diagnosis and treatment plan were discussed with the patient at bedside. Patient agrees with discussion and after shared medical decision making agrees with discharge. All questions were answered to the patient's satisfaction. Patient will follow up with his surgeon as scheduled for his upcoming appointment in 1 week. Patient was provided with strict return precautions and instructed to return to the emergency department if any new or worsening symptoms develop. The patient was discharged in stable condition. Lab Data 04/08/25 02:13 04/08/25 02:13 Labs: Lab Results 04/08/25 Range/Units 02:13 WBC 8.1 (4.5-10.0) K/mm3 RBC 4.26 L (4.6-6.20) M/mm3 Hgb 14.3 (14.0-18.0) g/dL Hct 41.1 L (42.0-52.0) % MCV 96.5 (80-100) fl MCH 33.6 (26-34) pg MCHC 34.8 (32-36) g/dl RDW 13.1 (11.5-14.5) % Plt Count 156 (150-375) k/mm3 MPV 12.6 H (7.4-10.4) fl Immature Gran % (Auto) 0.2 (0-0.5) % Neut % (Auto) 48.5 (45.5-73.1) % Lymph % (Auto) 34.3 (18.3-44.2) % [place] % (Auto) 8.8 H (2.6-8.5) % Eos % (Auto) 7.2 H (0-4.4) % Baso % (Auto) 1.0 (0.2-1.2) % Lymph # (Auto) 2.77 (0.9-3.2) K/mm3 [place] # (Auto) 0.7 H (0.1-0.6) K/mm3 Eos # (Auto) 0.6 H (0-0.3) K/mm3 Baso # (Auto) 0.1 (0.0-0.1) K/mm3 Abs Immat Gran (auto) 0.02 (0.00-0.031) K/mm3 Absolute Neuts (auto) 3.9 (1.3-6.7) K/mm3 Absolute Nucleated RBC 0.000 (0.0-0.012) K/mm3 Nucleated RBC % 0.0 (0.0-0.2) % Sodium 136 L (137-145) mmol/L Potassium 3.8 (3.4-5.0) mmol/L Chloride 105 (98-107) mmol/L Carbon Dioxide 22 (22-30) mmol/L Anion Gap 9 (4-12) mmol/L BUN 15 (9-20) mg/dL Creatinine 1.07 (0.7-1.3) mg/dL Estim Creat Clear Calc 107 ml/min Estimated GFR > 60 (59 - ) Glucose 141 H (65-110) mg/dL Calcium 9.0 (8.4-10.2) mg/dL Magnesium 1.9 (1.6-2.3) mg/dL Total Bilirubin 0.8 (0.2-1.3) mg/dL AST 59 (17-59) U/L ALT 96 H (6-50) U/L Alkaline Phosphatase 75 (38-126) U/L Total Protein 7.1 (6.3-8.2) g/dL Albumin 4.4 (3.5-5.1) g/dL Lipase 260 (23-300) U/L Discharge Plan Discharge Clinical Impression: Abdominal pain, chronic, right upper quadrant Patient Disposition: Home Condition: Improved Instructions: Antibiotic Form, Abdominal Pain (ED) Additional Instructions: Please follow-up with your general surgeon as scheduled for your outpatient cholecystectomy next week. Return to the ED if any new or worsening symptoms develop. Patient Language: Frisian Prescriptions: No Action benzonatate 200 mg capsule 200 mg PO TID PRN (Reason: cough) 10 Days Qty: 30 0RF albuterol sulfate [Ventolin HFA] 90 mcg/actuation HFA aerosol inhaler 2 puff INHALATION .Q4 hours PRN (Reason: cough) Qty: 18 0RF methylprednisolone 4 mg tablets,dose pack See Rx Instructions PO .COMPLEX Qty: 21 0RF Rx Instructions: for 6 days Biktarvy 50-200-25 mg Tablet 1 tablet PO DAILY dicyclomine 10 mg capsule 10 mg PO TID Qty: 15 0RF ondansetron 4 mg tablet,disintegrating 4 mg PO Q8H Qty: 21 0RF pantoprazole [Protonix] 40 mg tablet,delayed release (DR/EC) 40 mg PO HS 28 Days Qty: 28 0RF ondansetron 4 mg tablet,disintegrating 4 mg PO Q8H PRN (Reason: nausea and vomiting) Qty: 15 0RF Follow-up/Referrals: Traci Lara MD [Physician, General Surgery] - 1 Week UNKNOWN,DOCTOR [Primary Care Provider] Time of Disposition: 03:45
[2025-04-08 02:31] LABS: Alanine Aminotransferase 96 U/L (6-50); Albumin Level 4.4 g/dL (3.5-5.1); Alkaline Phosphatase 75 U/L (38-126); Anion Gap 9 mmol/L (4-12); Aspartate Amino Transferase 59 U/L (17-59); Bilirubin,Total 0.8 mg/dL (0.2-1.3); Blood Urea Nitrogen 15 mg/dL (9-20); Calcium 9.0 mg/dL (8.4-10.2); Carbon Dioxide 22 mmol/L (22-30); Chloride 105 mmol/L (98-107); Estimated CRCL calculation 107 ml/min; Estimated Glomerular Filt Rate > 60; Glucose 141 mg/dL (65-110); Lipase 260 U/L (23-300); Magnesium 1.9 mg/dL (1.6-2.3); Potassium 3.8 mmol/L (3.4-5.0); Sodium 136 mmol/L (137-145); Total Protein 7.1 g/dL (6.3-8.2)
[2025-04-08] MEDS: SODIUM CHLORIDE 0.9% IV 1,000 ML 999 ML IV CONT (02:32)
[2025-04-08 04:04] VITALS: BP 129/79; PULSE 69; RESP 18; TEMP 36.6; O2SAT 99
== END 2025-04-08 04:06 | disposition home or self-care (01) ==
PROVIDERS: Emergency Provider Emergency Medicine
DX: R10.11 Right upper quadrant pain (principal); G89.29 Other chronic pain; J45.909 Unspecified asthma, uncomplicated; E78.5 Hyperlipidemia, unspecified; Z21 Asymptomatic human immunodeficiency virus [HIV] infection status; Z79.899 Other long term (current) drug therapy
CPT/HCPCS: 36415; 80053; 83690; 83735; 85025; 96361; 96374; 96375; 96376; 99284; J2270; J2405; J7030

== ENCOUNTER 2025-04-09 00:03 | Emergency (ER) | payer BC, SELFPAY ==
--- NOTE | ~2025-04-09 | CT_ITS ---
EXAMINATION: CT abdomen pelvis w con DATE: 04/09/2025 02:45 INDICATION: Right-sided flank pain TECHNIQUE: Computed tomography (CT) of the abdomen and pelvis was performed without intravenous contrast. The dose-length product was 1904.74 mGy-cm. Automated exposure control and iterative reconstruction technique were employed. COMPARISON: CT dated 03/29/2025. FINDINGS: Dependent atelectasis. Heart size normal. No significant pleural or pericardial effusion. There are likely postsurgical changes at the umbilicus. Fatty infiltration of the liver. Contracted gallbladder. The spleen, pancreas, adrenal glands and kidneys are unremarkable. No ureteral stones or h ydronephrosis. Nonobstructive bowel gas pattern. Status post appendectomy. No free air or free fluid. No abnormal pelvic masses or fluid collections. No acute osseous abnormality. IMPRESSION: 1. No acute abdominal abnormality. Reviewed, dictated and finalized at location O.
[2025-04-09 00:03] VITALS: BP 144/91; PULSE 101; RESP 19; TEMP 36.3; O2SAT 96
[2025-04-09 01:56] VITALS: BP 140/88; PULSE 88; RESP 18; O2SAT 95
[2025-04-09] MEDS: KETOROLAC 15 MG/ML VIAL (*BKC) IV PUSH (02:01)
[2025-04-09] MEDS: HYDROmorphone HCL INJ (*CRX) 1 MG/ML SYR IV PUSH (02:02)
[2025-04-09] MEDS: ACETAMINOPHEN 500 MG TABLET 1000 MG PO (02:02)
[2025-04-09 02:12] LABS: Hematocrit 39.9 % (42.0-52.0); Hemoglobin 13.3 g/dL (14.0-18.0); Immature Granulocyte Percent A 0.6 % (0-0.5); Lymphocytes Absolute Auto 2.28 K/mm3 (0.9-3.2); Mean Corpuscular HGB Conc 33.3 g/dl (32-36); Mean Corpuscular Hemoglobin 32.7 pg (26-34); Mean Corpuscular Volume 98.0 fl (80-100); Nucleated Red Blood Cells Absolute Auto 0.000 K/mm3 (0.0-0.012); Nucleated Red Blood Cells Perc 0.0 % (0.0-0.2); Platelet Count Result 132 k/mm3 (150-375); Red Blood Count 4.07 M/mm3 (4.6-6.20); White Blood Count 7.2 K/mm3 (4.5-10.0)
[2025-04-09 02:21] LABS: Add Urine Microscopic? YES; Appearance Urine Cloudy (Clear); Glucose Urine UA Negative (Negative); Leukocyte Esterase Ur Negative LEU/UL (Negative); Nitrate Urine Negative (Negative); Non Pathogenic Casts 0-2; Specific Grav Ur 1.025 (1.001-1.035)
[2025-04-09 02:23] LABS: Alanine Aminotransferase 91 U/L (6-50); Albumin Level 4.1 g/dL (3.5-5.1); Alkaline Phosphatase 68 U/L (38-126); Anion Gap 7 mmol/L (4-12); Aspartate Amino Transferase 56 U/L (17-59); Bilirubin,Total 0.4 mg/dL (0.2-1.3); Blood Urea Nitrogen 14 mg/dL (9-20); Calcium 9.0 mg/dL (8.4-10.2); Carbon Dioxide 27 mmol/L (22-30); Chloride 104 mmol/L (98-107); Estimated CRCL calculation 101 ml/min; Estimated Glomerular Filt Rate > 60; Glucose 92 mg/dL (65-110); Potassium 4.3 mmol/L (3.4-5.0); Sodium 138 mmol/L (137-145); Total Protein 6.6 g/dL (6.3-8.2)
[2025-04-09 02:31] LABS: Lipase 141 U/L (23-300)
[2025-04-09] MEDS: LIDOCAINE 5% PATCH 1 PATCH TRANSDERM (03:00)
[2025-04-09 03:01] VITALS: BP 164/102; PULSE 93; RESP 18; O2SAT 96
--- NOTE | 2025-04-09 03:55 | ED.GENADULT ---
HPI - General Adult General Chief complaint: Abdominal Pain Stated complaint: abd pain Time Seen by Provider: 04/09/25 01:07 History of Present Illness HPI narrative: This is a 45-year-old male presenting presenting for ?gallbladder pain.? Patient has been seen multiple times in the ED for this over the last several weeks since even been scheduled for an outpatient cholecystectomy. After speaking with the patient his pain seems to be more in his lower back. The pain is in the right paralumbar region. It is worse with movement specifically sitting up. He has point tenderness in the paralumbar region. The pain is not related to food. He does not have any nausea vomiting. No fevers. Patient does not remember any strenuous event or cause. Related Data Home Medications ?Medication ?Instructions ?Recorded ?Confirmed ?Last Taken ?Type bictegravir 50 mg-emtricitabine 1 tablet PO DAILY 01/27/20 04/07/25 Unknown History 200 mg-tenofovir alafenam 25 mg tablet (Biktarvy) Allergies Allergy/AdvReac Type Severity Reaction Status Date / Time banana Allergy Mild MOUTH SORES Verified 04/09/25 00:03 cat dander Allergy Mild Itching Verified 04/09/25 00:03 tomato Allergy Mild MOUTH SORES Verified 04/09/25 00:03 PMFSH Past Medical History Medical History HIV (human immunodeficiency virus infection) Anxiety Depression Leg fracture Asthma Hyperlipidemia Surgical History Surgical History H/O ventral hernia repair 08/24/24 robotic assisted repair of recurrent, incarcerated ventral incisional hernia with total defects measuring [address] Lara History of appendectomy History of tonsillectomy Social History Social History Smoking status: Never smoker Alcohol intake: current Drinks per week: 3 Substance use: never Substance use type: does not use Do You Feel Safe in your Home?: Yes Lack of Transportation: No Lack of Food: Never True Current Housing: I Have Housing Concerned About Future Housing: No Difficulty Paying Gas/Electric Bills: No Difficulty Paying for Meds: No Currently Unemployed: YES Education: High School Diploma/GED Difficulty w/ Childcare or Family Care: No Living arrangements: with family Gender identity (if verbalized by the patient): Female Spiritual care concerns: Yes Exam Narrative: APPEARANCE: No apparent distress. Head: atraumatic. EYES: EOMI, NOSE: Atraumatic NECK: Trachea midline RESPIRATORY: No increased rate of breathing CARDIOVASCULAR: RRR, ABDOMINAL: Obese, soft nontender no guarding or rebound, Unable to visualize the gallbladder on ultrasound MUSCULOSKELETAl: Point tenderness in the right paralumbar region, reproducible pain with movement specifically sitting up. No overlying skin changes. Straight leg negative bilaterally NEURO: Alert. Moving 4/4 extremities SKIN:: Warm, dry. Normal color PSYCHIATRIC: Normal affect Course Vital Signs Vital signs: Vital Signs Temperature 97.3 F L 04/09/25 00:03 Pulse Rate 101 H 04/09/25 00:03 Respiratory Rate 19 04/09/25 00:03 Blood Pressure 144/91 H 04/09/25 00:03 Pulse Oximetry 96 04/09/25 00:03 Oxygen Delivery Room Air 04/09/25 00:03 Temperature 97.3 F L 04/09/25 00:03 Pulse Rate 93 04/09/25 03:01 Respiratory Rate 18 04/09/25 03:01 Blood Pressure 164/102 H 04/09/25 03:01 Pulse Oximetry 96 04/09/25 03:01 Oxygen Delivery Room Air 04/09/25 00:03 Medical Decision Making [facility] Narrative Medical decision making narrative: -Course: 45-year-old male presenting with right-sided lower back pain. While the patient appears very fixated on his gallbladder but on exam today his pain is pretty clearly musculoskeletal lower back pain. Review of previous lab work and imaging did not really show any objective signs of gallbladder disease. Labs reviewed. ALT is slightly elevated although that is consistent with his previous measurements. T bili AST and alk-phos are within limits. White count is normal. CT abdomen pelvis obtained preliminary read reveals no acute intra-abdominal process which is consistent with previous CTs. Results were discussed with the patient. Patient follow-up his primary care physician and his general surgeon. Given return precautions. -DDX includes but is not limited to: Gallbladder disease, kidney stone, back muscle strain, sciatica, appendicitis Vital Signs Vital Signs: Vital Signs Temperature 97.3 F L 04/09/25 00:03 Pulse Rate 101 H 04/09/25 00:03 Respiratory Rate 19 04/09/25 00:03 Blood Pressure 144/91 H 04/09/25 00:03 Pulse Oximetry 96 04/09/25 00:03 Oxygen Delivery Room Air 04/09/25 00:03 Temperature 97.3 F L 04/09/25 00:03 Pulse Rate 93 04/09/25 03:01 Respiratory Rate 18 04/09/25 03:01 Blood Pressure 164/102 H 04/09/25 03:01 Pulse Oximetry 96 04/09/25 03:01 Oxygen Delivery Room Air 04/09/25 00:03 Lab Data 04/09/25 01:55 04/09/25 01:55 Labs: Lab Results 04/09/25 Range/Units 01:55 WBC 7.2 (4.5-10.0) K/mm3 RBC 4.07 L (4.6-6.20) M/mm3 Hgb 13.3 L (14.0-18.0) g/dL Hct 39.9 L (42.0-52.0) % MCV 98.0 (80-100) fl MCH 32.7 (26-34) pg MCHC 33.3 (32-36) g/dl RDW 13.0 (11.5-14.5) % Plt Count 132 L (150-375) k/mm3 MPV 12.7 H (7.4-10.4) fl Immature Gran % (Auto) 0.6 H (0-0.5) % Neut % (Auto) 47.1 (45.5-73.1) % Lymph % (Auto) 31.8 (18.3-44.2) % [place]isher % (Auto) 12.1 H (2.6-8.5) % Eos % (Auto) 7.4 H (0-4.4) % Baso % (Auto) 1.0 (0.2-1.2) % Lymph # (Auto) 2.28 (0.9-3.2) K/mm3 [place]isher # (Auto) 0.9 H (0.1-0.6) K/mm3 Eos # (Auto) 0.5 H (0-0.3) K/mm3 Baso # (Auto) 0.1 (0.0-0.1) K/mm3 Abs Immat Gran (auto) 0.04 H (0.00-0.031) K/mm3 Absolute Neuts (auto) 3.4 (1.3-6.7) K/mm3 Absolute Nucleated RBC 0.000 (0.0-0.012) K/mm3 Nucleated RBC % 0.0 (0.0-0.2) % Sodium 138 (137-145) mmol/L Potassium 4.3 (3.4-5.0) mmol/L Chloride 104 (98-107) mmol/L Carbon Dioxide 27 (22-30) mmol/L Anion Gap 7 (4-12) mmol/L BUN 14 (9-20) mg/dL Creatinine 1.15 (0.7-1.3) mg/dL Estim Creat Clear Calc 101 ml/min Estimated GFR > 60 (59 - ) Glucose 92 (65-110) mg/dL Calcium 9.0 (8.4-10.2) mg/dL Total Bilirubin 0.4 (0.2-1.3) mg/dL AST 56 (17-59) U/L ALT 91 H (6-50) U/L Alkaline Phosphatase 68 (38-126) U/L Total Protein 6.6 (6.3-8.2) g/dL Albumin 4.1 (3.5-5.1) g/dL Lipase 141 (23-300) U/L Urine Color Yellow (Yellow) Urine Appearance Cloudy H (Clear) Urine pH 6.5 (5.0-9.0) Ur Specific [place] 1.025 (1.001-1.035) Urine Protein Negative (Negative) mg/dL Urine Glucose (UA) Negative (Negative) mg/dL Urine Ketones Negative (Negative) mg/dL Ur Blood (Man) Negative (Negative) Urine Nitrate Negative (Negative) Urine Bilirubin Negative (Negative) Urine Urobilinogen 0.2 (<2.0) mg/dL Leukocyte Esterase Rfl Negative (Negative) JEFFERY/UL Urine RBC 0-2 (0-2) /hpf Urine WBC 0-5 (0-3) /hpf Ur Squamous Epith Cells None seen (Few) /hpf Urine Bacteria None seen /hpf Urine Casts 0-2 Discharge Plan Discharge Clinical Impression: Lower back pain Patient Disposition: Home Condition: Stable Instructions: Antibiotic Form, Low Back Strain (ED) Additional Instructions: You were seen in the emergency department for lower back pain. Please use Motrin Tylenol Robaxin lidocaine patches needed. Please follow-up with your primary care physician and general surgeon for further management. If you develop severe pain, inability to urinate, bowel incontinence weakness to her lower extremities, fevers severe abdominal pain or persistent nausea vomiting please return to the ED for re-evaluation. Patient Language: Singaporean Prescriptions: New acetaminophen 500 mg tablet 1,000 mg PO TID PRN (Reason: shayla) 7 Days Qty: 42 0RF ibuprofen 800 mg tablet 800 mg PO TID PRN (Reason: pain) 7 Days Qty: 21 0RF methocarbamol 750 mg tablet 1,500 mg PO TID Qty: 45 0RF lidocaine 5 % adhesive patch,medicated 1 patch topical DAILY Qty: 15 0RF Rx Instructions: leave on most painful area for up to 12 hrs No Action benzonatate 200 mg capsule 200 mg PO TID PRN (Reason: cough) 10 Days Qty: 30 0RF albuterol sulfate [Ventolin HFA] 90 mcg/actuation HFA aerosol inhaler 2 puff INHALATION .Q4 hours PRN (Reason: cough) Qty: 18 0RF methylprednisolone 4 mg tablets,dose pack See Rx Instructions PO .COMPLEX Qty: 21 0RF Rx Instructions: for 6 days Biktarvy 50-200-25 mg Tablet 1 tablet PO DAILY dicyclomine 10 mg capsule 10 mg PO TID Qty: 15 0RF ondansetron 4 mg tablet,disintegrating 4 mg PO Q8H Qty: 21 0RF pantoprazole [Protonix] 40 mg tablet,delayed release (DR/EC) 40 mg PO HS 28 Days Qty: 28 0RF ondansetron 4 mg tablet,disintegrating 4 mg PO Q8H PRN (Reason: nausea and vomiting) Qty: 15 0RF Follow-up/Referrals: UNKNOWN,DOCTOR [Primary Care Provider]
== END 2025-04-09 04:49 | disposition home or self-care (01) ==
PROVIDERS: Emergency Provider Emergency Medicine
DX: M54.50 Low back pain, unspecified (principal); J45.909 Unspecified asthma, uncomplicated; E78.5 Hyperlipidemia, unspecified; F32.A Depression, unspecified; F41.9 Anxiety disorder, unspecified; Z21 Asymptomatic human immunodeficiency virus [HIV] infection status; Z79.899 Other long term (current) drug therapy
CPT/HCPCS: 36415; 74177; 80053; 81001; 83690; 85025; 96374; 96375; 99284; A9270; J1171; J1885; Q9967

== ENCOUNTER 2025-04-14 09:06 | Outpatient (CLI) | payer BC, SELFPAY ==
[2025-04-14 09:55] LABS: Amylase 93 U/L (30-110)
== END 2025-04-14 09:07 | disposition home or self-care (01) ==
LOC: ANHSURGERY 09:06
PROVIDERS: Visit Provider Surgery
DX: K81.1 Chronic cholecystitis (principal)
CPT/HCPCS: 36415; 82150; 86850; 86900; 86901

== ENCOUNTER 2025-04-15 01:58 | Day surgery (SDC) | payer BC, SELFPAY ==
[2025-04-13 11:56] VITALS: BMI 40.2
--- NOTE | 2025-04-13 12:04 | PC.NURSE ---
Report to the Outpatient Waiting Room, entrance under the green pavilion located off [facility], at time _1130_ on date _[id number]_. Planned Procedure Time: _130pm_.? Time changes happen often and if your time is changed the preop area will call you the afternoon before. - You and your visitor will be asked to self-screen and do not enter if you have any COVID symptoms. Please call surgeon if you need to reschedule. - A mask is optional within the hospital at this time. Patients may have clear liquids (water, carbonated beverages, clear teas, apple juice) until 3 hours prior to surgery with a maximum of 20 ounces. - No food from midnight until time of surgery and no smoking, or chewing tobacco (or any form of nicotine). No chewing gum, candy or mints. Take only the following medications with a SIP of water on the morning of surgery: __Biktarvy and if needed Acetaminophen and or Albuterol.____ DO NOT STOP ANY OF YOUR OTHER PRESCRIPTION MEDICATIONS PRIOR TO SURGERY EXCEPT THE FOLLOWING Hold all vitamins and supplements for 3 days per anesthesiologist. Medications to discontinue per physician Avoid Ibuprofen unless Dr Lara tells you to take it. Date to take last dose Please no make-up, nail tamazight, hairspray, perfume, deodorant, or body powder the day of surgery.? No jewelry (including any body piercings) or valuables the day of surgery, leave them at home.? Please take a shower or bath the night before, or the morning of, surgery with an antibacterial soap.? Wear comfortable, loose fitting clothing.? - Jewelry must be removed prior to entering the operating room.? Rings and piercings that are not removed may be cut off. - The hospital will not accept responsibility for valuables.? - Please leave all valuables, including medications, at home the day of surgery. If you are going home after surgery, a licensed jinrikisha driver must drive you home.? - NO public transportation without another adult if you receive anesthesia. - We recommend that an adult stay with you for 24 hours following discharge. - We also recommend that you do not drive, make important decision, drink alcoholic beverages, or take any drugs that were not prescribed by your health care provider for at least 24 hours after your discharge time. Follow any additional instructions given to you from your surgeon. Telephone instructions given to ___Tj__and asked if any additional questions and then verbalized understanding. Patient advised to call surgeon office or pre surgery nurse liaison [phone] if any additional questions.
[2025-04-15] VITALS (8 sets, daily range): BP systolic 96–144; BP diastolic 49–95; PULSE 53–107; RESP 12–18; TEMP 36.3–36.7; O2SAT 96–100
[2025-04-15] MEDS: KETOROLAC 15 MG/ML VIAL (*BKC) IV PUSH (11:15)
[2025-04-15] MEDS: ACETAMINOPHEN 500 MG TABLET 1000 MG PO (11:15)
[2025-04-15] MEDS: INDOCYANINE GREEN 25 MG VIAL WITH DILUENT 3.75 MG IV PUSH (11:15)
--- NOTE | 2025-04-15 11:44 | WPDHPUPDATE1 ---
History and Physical Update Update Date/Time: 04/15/25 11:44 History and Physical has been reviewed, including an updated exam of the patient. There are NO changes in the patient's condition. Risks, benefits, and alternatives have been discussed and questions answered. Patient agrees to proceed with procedure.
[2025-04-15] MEDS: LACTATED RINGERS 1,000 ML 30 ML IV CONT ×3 (13:00→15:23)
--- NOTE | 2025-04-15 13:52 | WPDANESEPPF ---
Anes - Initial Pre Proc Eval Procedure: Operation Date: 04/15/25 12:30 Proposed Procedures p Robotic Cholecystectomy - Traci Lara MD Date/Time: 04/15/25 13:52 Surgeon: Traci Lara MD Pre Op Diagnosis: chronic cholecystitis Patient Data Age: 45 Gender: M Height: 1.78 m Weight: 133 kg Last Vital Signs Temp 36.7 C 04/15/25 11:15 Pulse 85 04/15/25 11:15 Resp 16 04/15/25 11:15 BP 121/95 H 04/15/25 11:15 Pulse Ox 97 04/15/25 11:15 O2 Del Method Room Air 04/15/25 11:15 Allergies Allergy/AdvReac Type Severity Reaction Status Date / Time banana Allergy Mild MOUTH SORES Verified 04/15/25 13:40 cat dander Allergy Mild Itching Verified 04/15/25 13:40 tomato Allergy Mild MOUTH SORES Verified 04/15/25 13:40 Home Medications ?Medication ?Instructions ?Recorded ?Confirmed ?Type bictegravir 50 mg-emtricitabine 1 tablet PO DAILY 01/27/20 04/13/25 History 200 mg-tenofovir alafenam 25 mg tablet (Biktarvy) albuterol sulfate 90 mcg/actuation 2 puff inhalation .Q4 hours PRN 03/13/25 04/13/25 Rx aerosol inhaler (Ventolin HFA) cough #18 grams benzonatate 200 mg capsule 200 mg PO TID PRN cough 10 days 03/13/25 04/13/25 Rx #30 caps methylprednisolone 4 mg tablets in See Rx Instructions PO .COMPLEX 03/13/25 04/13/25 Rx a dose pack #21 ea dicyclomine 10 mg capsule 10 mg PO TID #15 caps 03/22/25 04/13/25 Rx ondansetron 4 mg disintegrating 4 mg PO Q8H PRN nausea and 03/29/25 04/13/25 Rx tablet vomiting #15 tabs pantoprazole 40 mg tablet,delayed 40 mg PO HS 4 weeks #28 tabs 03/29/25 04/13/25 Rx release (Protonix) acetaminophen 500 mg tablet 1,000 mg (2 x 500 mg) PO TID PRN 04/09/25 04/13/25 Rx shayla 7 days #42 tabs ibuprofen 800 mg tablet 800 mg PO TID PRN pain 7 days #21 04/09/25 04/13/25 Rx tabs methocarbamol 750 mg tablet 1,500 mg (2 x 750 mg) PO TID #45 04/09/25 04/13/25 Rx tabs Patient hx anesthesia problems: none Family hx anesthesia problems: none Results Review: All pre-operative results and documents have been reviewed as part of the pre-operative evaluation. PMFSH Past Medical History Medical History HIV (human immunodeficiency virus infection) Anxiety Depression Leg fracture Asthma Hyperlipidemia Surgical History Surgical History H/O ventral hernia repair 08/24/24 robotic assisted repair of recurrent, incarcerated ventral incisional hernia with total defects measuring [address] Lara History of appendectomy History of tonsillectomy Social History Social History Smoking status: Never smoker Alcohol intake: current Drinks per week: 2 Substance use: never Substance use type: does not use Do You Feel Safe in your Home?: Yes Lack of Transportation: No Lack of Food: Never True Current Housing: I Have Housing Concerned About Future Housing: No Difficulty Paying Gas/Electric Bills: No Difficulty Paying for Meds: No Currently Unemployed: YES Education: High School Diploma/GED Difficulty w/ Childcare or Family Care: No Living arrangements: with family Gender identity (if verbalized by the patient): Female Spiritual care concerns: No Anes - Eval Final PreProcedure Day of Procedure 04/15/25 13:52 Patient weight: morbidly obese Heart: regular rate and rhythm Lungs: decreased breath sounds Airway: Mallampati scale class III Neurological: alert and oriented Last oral intake: >/= 8 hours ASA classification: III Emergent: no Anesthetic plan: proceed Anesthesia type and monitoring: general ETT and standard monitoring Results Review: All pre-operative results and documents have been reviewed as part of the pre-operative evaluation. Informed Consent: The patient's anesthetic plan and its attendant risks and benefits were discussed with the patient/family/POA. Questions were solicited and answers provided to the satisfaction of the patient/family/POA.
--- NOTE | 2025-04-15 14:04 | P.PNAN_ITS ---
Anes - Eval Final PreProcedure Day of Procedure 04/15/25 14:04 Patient weight: morbidly obese Heart: regular rate and rhythm Lungs: clear to auscultation Airway: Mallampati scale class II Neurological: alert and oriented Last oral intake: >/= 8 hours ASA classification: III Emergent: no Anesthetic plan: proceed Anesthesia type and monitoring: general ETT and standard monitoring Results Review: All pre-operative results and documents have been reviewed as part of the pre- operative evaluation. Informed Consent: The patient's anesthetic plan and its attendant risks and benefits were discussed with the patient/family/POA. Questions were solicited and answers provided to the satisfaction of the patient/family/POA.
[2025-04-15] MEDS: ceFAZolin 3 GM/D5W 100 ML 100 ML IVPB (14:06)
[2025-04-15] MEDS: BUPIVACAINE/EPINEPHRINE 0.5% 50 ML VIAL 30 ML INFILTRATE (14:34)
--- NOTE | 2025-04-15 15:12 | S_PTH ---
PATIENT: Tj Rosario LOC: [facility] U#:[id number] AGE/SX: 45/M ROOM: RE04/15/[address]: Traci Lara MD : 1980 BED: DIS: 04/15/2025 SPEC #: [id number] RECD: 04/16/25 06:59 STATUS: BELLO REKevin #: [id number] JOSE RAMON: 04/15/25 15:[address]: Traci Lara DEPT: [facility] Surgical RECD BY: Kusum Schmitt Tissues: A - Gallbladder Procedures: Hematoxylin and Eosin Stain Gross and Microscopic Level 3
--- NOTE | 2025-04-15 15:19 | P.OP_ITS ---
Procedure Note - Detailed Date of Procedure 04/15/25 Pre-op Diagnosis chronic cholecystitis Post-op Diagnosis Same Procedure Performed Robotic assisted cholecystectomy Surgeon Traci Lara MD Anesthesia General Indications 45-year-old male presenting to the office complaining of postprandial pain upper abdominal pain, bloating. Workup, including imaging, significant for chronic cholecystitis. Findings moderate cholecystitis Description of Procedure The patient was taken to the operating room and placed in the supine position. After adequate induction of general anesthesia, the patient was prepped and d raped in the normal sterile fashion. A time-out was then done to verify the patient's identity, as well as the procedure being performed. I began by making a 8 mm incision in the right lower abdomen. An Optiview trocar with the laparoscopic was placed through this incision into the abdominal cavity. CO2 gas was then insufflated through the trocar. After adequate pneumoperitoneum was achieved, The laparoscopic was placed into the trocar site. Under direct visualization, I placed a further 8 mm port right lower lateral abdomen. There was noted to be adhesions to the previous area of his ventral hernia. Using the Bovie cautery, I was able to take down these adhesions. Once these adhesions were taken down, I placed a further 8 mm port in the infraumbilical region and an 8 mm port in the left lower abdomen. The robot was then docked to these ports sites. I then went to the console. The gallbladder was then identified and noted to be moderately inflamed. I was able to place a grasper at the dome of the gallbladder and this was retracted up and over the liver. A 2nd retractor was used to grasp the infundibulum and retracted laterally. This allowed visualization and dissection of the triangle of Calot. There were some omental adhesions to the gallbladder and these were taken down with the cautery. I then began dissection around the triangle Calot. I first identified the cystic duct, I was able to visualize the entirety of the duct from its proximal insertion into the gallbladder to its distal junction with the common hepatic/common bile duct junction. I then used the firefly visualization at this point to confirm the anatomy. The proximal cystic duct was then further skeletonized, clipped, and transected. Next I visualized the cystic artery. Again the structure was skeletonized, clipped, and transected. I then again used firefly to confirm anatomy and no aberrant anatomy was noted. I then used the Bovie cautery to take down the peritoneal attachments of the gallbladder off the liver bed. Once the gallbladder specimen was completely detached, an Endo pouch was placed through the left 8 mm port site and the gallbladder specimen was placed in the endo-pouch and subsequently removed. Of note, I made a cholecystostomy and decompressed the gallbladder to facilitate removal. I then re-examined the right upper quadrant. Hemostasis was noted in the liver bed and the clips were noted to be in good position on both the duct and the artery. No other pathology was seen in the right upper quadrant. All instruments were then removed and the robot was undocked. The abdomen was then desufflated and all ports were removed. All port sites were then closed with 4-0 Monocryl subcuticular suture. Dermabond was placed on each was wound. The patient tolerated the procedure well and was extubated in the operating room postop. The patient will now be transferred to the recovery room in stable condition. Estimated Blood Loss 10 Drains No Packing No Pathology Yes Complications No immediate complications Condition Stable Disposition PACU [facility] Billing Surgery - Charge Forward: Surgery Billing
[2025-04-15] MEDS: oxyCODONE HCL (*CRX) 5 MG TAB IR PO (16:11)
== END 2025-04-15 17:07 | disposition home or self-care (01) ==
PROVIDERS: Visit Provider Surgery
PROC: 0FT44ZZ Resection of Gallbladder, Percutaneous Endoscopic Approach (ICD-10-PCS; CPT 47562; principal; 2025-04-15 12:30)
DX: K81.1 Chronic cholecystitis (principal); Z21 Asymptomatic human immunodeficiency virus [HIV] infection status; K21.9 Gastro-esophageal reflux disease without esophagitis
CPT/HCPCS: 47562; S2900; 88304; A9270; J0690; J1100; J1885; J2250; J2405; J2704; J3010; J7030; J7120

== ENCOUNTER 2025-05-30 11:59 | Emergency (ER) | payer BC, SELFPAY ==
--- NOTE | 2025-05-30 12:01 | ED_ITS ---
HPI - Nausea/Vomiting/Diarrhea General Chief complaint: Nausea/Vomiting/Diarrhea Stated complaint: nausea off and on post gall bladder surgery Time Seen by Provider: 05/30/25 12:01 Source: patient Mode of arrival: ambulatory Limitations: no limitations History of Present Illness HPI Narrative: Patient is a 45-year-old male who presents with nausea. Patient states he has nausea daily after cholecystectomy 6 weeks ago. Patient PCP appointment on Saturday but did not mention that he needed a refill of medication. Related Data Home Medications ?Medication ?Instructions ?Recorded ?Confirmed ?Last Taken ?Type bictegravir 50 mg-emtricitabine 1 tablet PO DAILY 01/1005/30/25 Unknown History 200 mg-tenofovir alafenam 25 mg tablet (Biktarvy) Allergies Allergy/AdvReac Type Severity Reaction Status Date / Time banana Allergy Mild MOUTH SORES Verified 05/30/25 12:05 cat dander Allergy Mild Itching Verified 05/30/25 12:05 tomato Allergy Mild MOUTH SORES Verified 05/30/25 12:05 Review of Systems Review of Systems: All systems reviewed & are unremarkable except as noted in HPI and below Constitutional: Constitutional: Denies body ache(s), Denies chills, Denies fat igue, Denies fever(s), Denies headache(s), Denies malaise and Denies weakness Eyes: Eyes: Denies blurry vision, Denies irritation and Denies loss of vision ENT: Denies otalgia, Denies headache(s), Denies nasal discharge, Denies sinus pain and Denies sore throat Cardiovascular: Cardiovascular: Denies chest pain, Denies irregular heart rhythm and Denies dyspnea Respiratory: Respiratory: Denies dyspnea Gastrointestinal: Gastrointestinal: Denies abdominal pain, Denies melena, Denies hematochezia, Denies diarrhea, Reports nausea and Denies vomiting Musculoskeletal: Musculoskeletal: Denies back pain, Denies myalgias and Denies arthralgias Integumentary/Breasts: Skin/Breast: Denies pruritus and Denies rash Neurologic: Denies headache(s), Denies loss of vision and Denies weakness Psychiatric: Psychiatric: Reports no additional psychiatric complaints Endocrine: Endocrine: Denies fatigue PMFSH Past Medical History Medical History HIV (human immunodeficiency virus infection) Anxiety Depression Leg fracture Asthma Hyperlipidemia Surgical History Surgical History S/P laparoscopic cholecystectomy Robotic assisted cholecystectomy H/O ventral hernia repair 08/24/24 robotic assisted repair of recurrent, incarcerated ventral incisional hernia with total defects measuring [address] Lara History of appendectomy History of tonsillectomy Social History Social History Smoking status: Never smoker Alcohol intake: current Drinks per week: 2 Substance use: never Substance use type: does not use Do You Feel Safe in your Home?: Yes Lack of Transportation: No Lack of Food: Never True Current Housing: I Have Housing Concerned About Future Housing: No Difficulty Paying Gas/Electric Bills: No Difficulty Paying for Meds: No Currently Unemployed: YES Education: High School Diploma/GED Difficulty w/ Childcare or Family Care: No Living arrangements: with family Gender identity (if verbalized by the patient): Female Spiritual care concerns: No Comments At time of signature, agree with nursing past medical, surgical, social and family history. There is no relevant family history pertinent to the presenting complaint. Exam Const: General: cooperative, healthy appearing, comfortable, no acute distress and well nourished Nutritional Appearance: well nourished Orientation/consciousness: patient oriented x3 Limitations: no limitations HENMT: Head: normal to inspection, normocephalic and atraumatic Ears: hearing grossly normal bilaterally and external ears normal Face/Nose/Sinus: Normal external nose present, normal facial exam and face symmetric Face and sinus: normal facial exam and face symmetric Mouth: Yes lip normal Eyes: General: appearance normal, both eyes and all related structures Alignment and Position: alignment normal and position normal Periorbital: periorbital findings normal Eyelids: eyelids normal Pupils: Equal, round and reactive pupils present EOM: EOMs intact bilaterally Neck: Neck: normal visual inspection, full ROM and supple Chest: Chest palpation & inspection: normal inspection of the chest Resp: Effort & Inspection: normal respiratory effort and able to speak in complete sentences Auscultation: clear to auscultation bilaterally Cardio: Rate: regular rate Rhythm: regular rhythm Heart sounds: S1 normal heart sound present and S2 normal heart sound present GI: Inspection: normal to inspection GI Palp: No abdominal tenderness and Yes Soft to palpation Skin: General skin exam: normal color and no rashes or lesions noted Neuro: General: patient oriented x3 and moves all extremities Cranial nerves: Yes Equal, round and reactive pupils present Speech: normal speech Gait exam (Neuro): Normal gait present Extrem: General: normal to inspection, full ROM and no edema Psych: Appearance: grossly normal and well kempt Mental Status: mental status grossly normal Speech and movement: Normal speech and movement present Affect: normal affect Attitude: cooperative Thought process: Normal thought process present Course Course Emergency Course: Patient is aware of diagnosis, understands and agrees to treatment plan. Anticipatory guidance given. Patient agrees to follow-up as directed and is aware of reasons to seek care at the emergency department. Portions of this record may have been created with voice recognition software Level of Care: Express Care Visit Vital Signs Vital signs: Reviewed MDM - Nausea/Vomiting/Diarrhea MDM Narrative Medical decision making narrative: Will refill Zofran and pantoprazole. Patient is to follow-up with PCP or surgeon Pt well hydrated appearing, in no respiratory distress, hemodynamically stable. Recommend supportive care. The patient is stable at time of discharge the clinical impression was discussed and the patient was given the opportunity to ask questions, which were addressed as completely as possible given the information available at present. Anticipatory guidance and return to care precautions were discussed and the importance of primary care follow-up was stressed and encouraged. The patient voiced understanding of the plan, indications to return, and the need for follow-up. Exam findings show no acute concerns or changes Patient is appropriate for outpatient treatment and follow-up. Differential Diagnosis Differential diagnosis: Likely other (Postop nausea, medication refill) Medical Records Attestation: I reviewed the patient's medical records. Discharge Plan Discharge Clinical Impression: Nausea, H/O abdominal surgery Patient Disposition: Home Condition: Stable Instructions: Acute Nausea and Vomiting (DC) Additional Instructions: Stay hydrated. Take small sips of fluid containing electrolytes frequently(Body [place], Gatorade, Powerade, liquid IV). Eat small meals that her very bland including bananas, applesauce, rice, toast, boiled or grilled chicken, soup. Do not eat anything fried, spicy or overly acidic. You should go to the hospital if you experience return of persistent nausea and vomiting that does not resolve and does not allow you to tolerate any food or fluids, persistent fevers for greater than 2-3 more days, increasing abdominal pain that persists despite medications, persistent diarrhea, dizziness, syncope (fainting), or for any other concerns. Patient Language: Kazakh Prescriptions: New ondansetron 4 mg tablet,disintegrating 4 mg PO Q6-8H PRN (Reason: nausea and vomiting) Qty: 15 0RF pantoprazole 40 mg tablet,delayed release (DR/EC) 40 mg PO HS 28 Days Qty: 28 0RF No Action albuterol sulfate [Ventolin HFA] 90 mcg/actuation HFA aerosol inhaler 2 puff INHALATION .Q4 hours PRN (Reason: cough) Qty: 18 0RF Biktarvy 50-200-25 mg Tablet 1 tablet PO DAILY pantoprazole [Protonix] 40 mg tablet,delayed release (DR/EC) 40 mg PO HS 28 Days Qty: 28 0RF Follow-up/Referrals: Devyn Deluca MD [Physician, Family Practice] - 3 Days Stand Alone Forms: Work/School Release IP Time of Disposition: 12:56
[2025-05-30 12:10] VITALS: BP 135/87; PULSE 96; RESP 20; TEMP 36.6; O2SAT 100
== END 2025-05-30 12:59 | disposition home or self-care (01) ==
PROVIDERS: Emergency Provider Nurse Practitioner Family
DX: R11.0 Nausea (principal); Z98.890 Other specified postprocedural states; F41.8 Other specified anxiety disorders; Z21 Asymptomatic human immunodeficiency virus [HIV] infection status; E78.5 Hyperlipidemia, unspecified; J45.909 Unspecified asthma, uncomplicated
CPT/HCPCS: 99213; G0463

== ENCOUNTER 2025-06-14 09:36 | Emergency (ER) | payer BC, SELFPAY ==
--- NOTE | ~2025-06-14 | XR_ITS ---
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 Findings: No acute fracture or malalignment. No significant degenerative changes. Soft tissues unremarkable. Impression: No acute fracture or malalignment. Reviewed, dictated and finalized at location P. RIAL SCHEDULER Impression: No acute fracture or malalignment.
--- NOTE | ~2025-06-14 | XR_ITS ---
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 Findings: No acute fracture or malalignment. No significant degenerative changes. Soft tissues unremarkable. Impression: No acute fracture or malalignment. Reviewed, dictated and finalized at location P. [employer] STEMMER MACHINE Impression: No acute fracture or malalignment.
[2025-06-14 10:01] VITALS: BP 151/98; PULSE 110; RESP 14; O2SAT 96
[2025-06-14] MEDS: KETOROLAC 30 MG/ML VIAL (*BKC) 15 MG IM (10:22)
--- NOTE | 2025-06-14 13:43 | ED_ITS ---
HPI - Extremity Injury (Lower) General Chief Complaint: Extremity Injury, Lower Stated Complaint: left ankle pain. fell on 06/11 Time Seen by Provider: 06/14/25 09:48 History of Present Illness HPI Narrative: In a few days ago patient rolled his ankle pretty badly at work, since then he has been trying to walk on it but pain was worse today so came into get checked out Related Data Home Medications ?Medication ?Instructions ?Recorded ?Confirmed ?Last Taken ?Type bictegravir 50 mg-emtricitabine 1 tablet PO DAILY 01/1005/30/25 Unknown History 200 mg-tenofovir alafenam 25 mg tablet (Biktarvy) Allergies Allergy/AdvReac Type Severity Reaction Status Date / Time banana Allergy Mild MOUTH SORES Verified 06/14/25 10:11 cat dander Allergy Mild Itching Verified 06/14/25 10:11 tomato Allergy Mild MOUTH SORES Verified 06/14/25 10:11 Review of Systems Review of Systems: All systems reviewed & are unremarkable except as noted in HPI and below PMFSH Past Medical History Medical History HIV (human immunodeficiency virus infection) Anxiety Depression Leg fracture Asthma Hyperlipidemia Surgical History Surgical History S/P laparoscopic cholecystectomy Robotic assisted cholecystectomy H/O ventral hernia repair 08/24/24 robotic assisted repair of recurrent, incarcerated ventral incisional hernia with total defects measuring [address] Lara History of appendectomy History of tonsillectomy Social History Social History Smoking status: Never smoker Alcohol intake: current Drinks per week: 2 Substance use: never Substance use type: does not use Do You Feel Safe in your Home?: Yes Lack of Transportation: No Lack of Food: Never True Current Housing: I Have Housing Concerned About Future Housing: No Difficulty Paying Gas/Electric Bills: No Difficulty Paying for Meds: No Currently Unemployed: YES Education: High School Diploma/GED Difficulty w/ Childcare or Family Care: No Living arrangements: with family Gender identity (if verbalized by the patient): Female Spiritual care concerns: No Exam Narrative: EXAMINATION OF ORGAN SYSTEMS/BODY AREAS: Constitutional: Vital signs per nursing GENERAL:[No acute distress, non-toxic appearing.] HEAD: Normal with no signs of head trauma. EYES: EOMI, conjunctiva normal ENT: Hearing grossly intact LUNGS: Nonlabored breathing. HEART: [Regular rate and rhythm] ABD: [Soft], [nontender to palpation] EXT: Normal range of motion, swelling and tenderness left ankle and heel SKIN: [No rashes or lesions.] NEURO: [Alert and oriented x 3. No gross focal sensory or strength deficits.] PSYCH: Normal affect Course Vital Signs Vital signs: Vital Signs Pulse Rate 110 H 06/14/25 10:01 Respiratory Rate 14 06/14/25 10:01 Blood Pressure 151/98 H 06/14/25 10:01 Pulse Oximetry 96 06/14/25 10:01 Oxygen Delivery Room Air 06/14/25 10:01 Pulse Rate 110 H 06/14/25 10:01 Respiratory Rate 14 06/14/25 10:01 Blood Pressure 151/98 H 06/14/25 10:01 Pulse Oximetry 96 06/14/25 10:01 Oxygen Delivery Room Air 06/14/25 10:01 MDM - Extremity Injury (Lower) MDM Narrative Medical decision making narrative: Patient presents after left ankle and foot injury a few days ago, has been able to ambulate, on exam he has some tenderness to lateral ankle and heel, however he is neurovascular intact with strong DP pulse. No obvious deformity. X-ray on my independent interpretation of his foot and ankle does not show any obvious acute fractures or dislocations, given pain medicine and follow-up to Podiatry with return precautions. Patient agreeable to plan Discharge Plan Discharge Clinical Impression: Ankle sprain Patient Disposition: Home Condition: Stable Instructions: Ankle Sprain (ED) Additional Instructions: Please follow up with your doctor or with the foot and ankle specialist; you can always return for any further issues. Patient Language: [place] Prescriptions: New acetaminophen [Tylenol Extra Strength] 500 mg tablet 1,000 mg PO Q6H PRN (Reason: pain) Qty: 50 0RF ibuprofen 600 mg tablet 600 mg PO TID PRN (Reason: fever or pain) Qty: 30 0RF No Action albuterol sulfate [Ventolin HFA] 90 mcg/actuation HFA aerosol inhaler 2 puff INHALATION .Q4 hours PRN (Reason: cough) Qty: 18 0RF ondansetron 4 mg tablet,disintegrating 4 mg PO Q6-8H PRN (Reason: nausea and vomiting) Qty: 15 0RF pantoprazole 40 mg tablet,delayed release (DR/EC) 40 mg PO HS 28 Days Qty: 28 0RF Biktarvy 50-200-25 mg Tablet 1 tablet PO DAILY pantoprazole [Protonix] 40 mg tablet,delayed release (DR/EC) 40 mg PO HS 28 Days Qty: 28 0RF Follow-up/Referrals: Javier Murdock Jr., DPM [Physician, Podiatry] - 2 Days PHYSICIAN NOT ON STAFF,NONSTAFF [Non-Staff] Stand Alone Forms: Work/School Release IP
== END 2025-06-14 10:33 | disposition home or self-care (01) ==
LOC: ANHED 10:16
PROVIDERS: Emergency Provider Emergency Medicine
DX: S93.402A Sprain of unspecified ligament of left ankle, initial encounter (principal); Z21 Asymptomatic human immunodeficiency virus [HIV] infection status; F41.9 Anxiety disorder, unspecified; F32.A Depression, unspecified; J45.909 Unspecified asthma, uncomplicated; E78.5 Hyperlipidemia, unspecified; X50.0XXA Overexertion from strenuous movement or load, initial encounter
CPT/HCPCS: 73610; 73630; 96372; 99283; J1885